=== PATIENT | male | born 1965 | race Caucasian/White ===

== ENCOUNTER 2018-01-31 08:00 | Day surgery (SDC) | payer BC ==
--- OUTSIDE RECORDS SUMMARY | 2018-01-31 08:06 | XMS REPORT | Clinical Summary ---
:1965 Author Organization [facility] Address [address] [place] [address] Phone Care Team Providers Name Role Phone Unavailable Primary Care Provider Unavailable Allergies No Known Allergies Current Medications Prescription Sig. Disp. Refills Start Date End Date Status metFORMIN Take 1,000 mg Active (GLUCOPHAGE) 1000 by mouth 2 MG tablet (two) times daily with breakfast and dinner. SITagliptin Take 100 mg by Active (JANUVIA) 100 MG mouth daily. tablet lisinopril Take 40 mg by 07/05/2017 Discontinued (PRINIVIL,ZESTRIL) mouth daily. 40 MG tablet ibuprofen Take 1 tablet 28 tablet 0 07/05/2017 07/05/2017 Discontinued (ADVIL,MOTRIN) 200 (200 mg total) MG tablet by mouth 2 (two) times daily for 14 days. traMADol (ULTRAM) Take 1 tablet 30 tablet 0 07/05/2017 07/15/2017 50 mg tablet (50 mg total) by mouth every 6 (six) hours as needed for Pain for up to 10 days. Max Daily Amount: 200 mg aspirin 81 MG Take 1 tablet 30 tablet 0 07/06/2017 08/05/2017 chewable tablet (81 mg total) by mouth daily for 30 days. atorvastatin Take 1 tablet 30 tablet 0 07/05/2017 08/04/2017 (LIPITOR) 40 MG (40 mg total) tablet by mouth nightly for 30 days. metoprolol Take 1 tablet 60 tablet 0 07/05/2017 08/04/2017 (LOPRESSOR) 25 MG (25 mg total) tablet by mouth 2 (two) times daily for 30 days. magnesium oxide Take 1 tablet 30 tablet 0 07/05/2017 08/04/2017 (MAG-OX) 400 mg (400 mg total) tablet by mouth daily for 30 days. ibuprofen Take 1 tablet 14 tablet 0 07/05/2017 07/12/2017 (ADVIL,MOTRIN) 200 (200 mg total) MG tablet by mouth 2 (two) times daily for 7 days. Active Problems Problem Noted Date S/P coronary artery bypass graft x 4 07/05/2017 Essential hypertension 06/30/2017 Type 2 diabetes mellitus without complication (HCC) 06/30/2017 CAD (coronary artery disease) 06/29/2017 Encounters Date Type Specialty Care Team Description 06/30/2017 Procedure Pass 06/30/2017 Surgery Fabian Spencer MD BYPASS,AORTO CORONARY CARMEN/SVG 06/29/2017 - Hospital Encounter Cardiology Fabian Spencer MD S/P coronary artery 07/05/2017 bypass graft x 4 (Primary Dx);Coronary artery disease involving blackfeet coronary artery of blackfeet heart with unstable angina pectoris (HCC);Type 2 diabetes mellitus without complication, without long-term current use of insulin (HCC);Essential hypertension 06/29/2017 Anesthesia Event Wyatt Maldonado MD 06/29/2017 Orders Only Yandel Medina MD after 01/30/2017 Social History Tobacco Use Types Packs/Day Years Used Date Never Assessed Sex Assigned at Date Recorded Not on file Last Filed Vital Signs Vital Sign Reading Time Taken Blood Pressure 107/59 07/05/2017 3:00 PM PHLEBOTOMIST Pulse 77 07/05/2017 3:00 PM PHLEBOTOMIST Temperature 36.3 C (97.3 F) 07/05/2017 3:00 PM PHLEBOTOMIST Respiratory Rate 18 07/05/2017 3:00 PM PHLEBOTOMIST Oxygen Saturation 95% 07/05/2017 3:00 PM PHLEBOTOMIST Inhaled Oxygen Concentration - - Weight 101.9 kg (224 lb 11.2 oz) 07/05/2017 5:51 AM PHLEBOTOMIST Height 175.3 cm (5' 9") 06/29/2017 7:00 PM PHLEBOTOMIST Body Mass Index 33.18 07/05/2017 5:51 AM PHLEBOTOMIST Plan of Treatment Not on file Implants Implanted Type Area Proteomics Scientist Device Expiration Model / Identifier Date Serial / Lot Sternal Zipfix Ndl Strl [id number] - Sn/A Cardiovascular Sternum SYNTHES :SYNTHES 12/25/[id number] / Implanted: Qty: 1 on 06/30/2017 by Fabian Spencer MD [facility] N/A / [id number] Procedures Procedure Name Priority Date/Time Associated Diagnosis Comments ENDOSCOPIC HARVEST,VEIN 06/30/2017 7:30 AM CAOD PHLEBOTOMIST BYPASS,AORTO CORONARY 06/30/2017 7:30 AM CAOD CARMEN/SVG PHLEBOTOMIST after 01/30/2017 Results RHYTHM STRIP - SCAN (07/06/2017 1:41 PM)POC-Glucose meter (07/05/2017 12:20 PM) Only the most recent of24 resultswithin the time period is included. Component Value Ref Range POC-Glucose Meter 217 (H)Comment: TESTED AT [address] 70 - 110 mg/[place] [id number] Specimen Performing Laboratory Blood [address] [address] EKG 12 lead (07/05/2017 6:05 AM)Only the most recent of7 resultswithin the time period is included. Specimen Performing Laboratory GE MUSE Narrative Ventricular Rate 76 BPM Atrial Rate 76 BPM P-R Interval 162 ms QRS Duration 86 ms Q-T Interval 382 ms QTC Calculation(Bazett) 429 ms P Nordman 53 degrees R Nordman 51 degrees T Nordman 40 degrees Normal sinus rhythm Possible Anterolateral infarct , age undetermined Abnormal ECG When compared with ECG of 04-JUL-2017 04:33, No significant change was found Confirmed by MD SULY, IHAB ([id number]) on 07/05/2017 1:33:22 PM Procedure Note Interface, External Ris In - 07/05/2017 1:33 PM PHLEBOTOMIST Ventricular Rate 76 BPM Atrial Rate 76 BPM P-R Interval 162 ms QRS Duration 86 ms Q-T Interval 382 ms QTC Calculation(Bazett) 429 ms P Nordman 53 degrees R Nordman 51 degrees T Nordman 40 degrees Normal sinus rhythm Possible Anterolateral infarct , age undetermined Abnormal ECG When compared with ECG of 04-JUL-2017 04:33, No significant change was found Confirmed by MD SULY, IHAB ([id number]) on 07/05/2017 1:33:22 PM Magnesium (07/05/2017 5:54 AM)Only the most recent of6 resultswithin the time period is included. Component Value Ref Range Magnesium 1.7 1.6 - 2.6 mg/dL Specimen Performing Laboratory Blood - Arm, Left [address] [address] CBC with platelet count + automated diff (07/03/2017 3:33 AM)Only the most recent of4 resultswithin the time period is included. Component Value Ref Range WBC 7.3 3.5 - 10.5 K/L RBC 2.83 (L) 4.63 - 6.08 M/L Hemoglobin 9.3 (L) 13.7 - 17.5 GM/DL Hematocrit 27.3 (L) 40.1 - 51.0 % MCV 96.5 (H) 79.0 - 92.2 fL MCH 32.9 (H) 25.7 - 32.2 pg MCHC 34.1 32.3 - 36.5 GM/DL RDW 12.1 11.6 - 14.4 % Platelets 202 150 - 450 K/CU MM MPV 9.4 9.4 - 12.4 fL nRBC 0 0 - 0 /100 WBC % Neutros 60 % % Lymphs 24 % % Monos 11 % % Eos 3 % % Baso 1 % # Neutros 4.37 1.78 - 5.38 K/L # Lymphs 1.77 1.32 - 3.57 K/L # Monos 0.83 (H) 0.30 - 0.82 K/L # Eos 0.20 0.04 - 0.54 K/L # Baso 0.04 0.01 - 0.08 K/L Immature Granulocytes-Relative 1 0 - 1 % Specimen Performing Laboratory Blood - [facility], [address] [address] CBC with platelet count + automated diff (07/03/2017 3:33 AM)Only the most recent of4 resultswithin the time period is included. Specimen Performing Laboratory Blood Narrative The following orders were created for panel order CBC with platelet count + automated diff. Procedure Abnormality Status --------- ------ CBC with platelet count ...[[id number]]AbnormalFinal result Please view results for these tests on the individual orders. Basic metabolic panel (07/03/2017 3:33 AM)Only the most recent of4 resultswithin the time period is included. Component Value Ref Range Sodium 136 136 - 145 meq/L Potassium 3.8 3.5 - 5.1 meq/L Chloride 102 98 - 107 meq/L CO2 26 22 - 29 meq/L BUN 10 7 - 21 mg/dL Creatinine 0.82 0.57 - 1.25 mg/dL Glucose 128 (H) 70 - 105 mg/dL Calcium 8.9 8.4 - 10.2 mg/dL EGFR 98Comment: ESTIMATED GFR IS NOT ACCURATE mL/min/1.73 sq m CREATININE CLEARANCE IN PREDICTING GLOMERULAR FILTRATION RATE. ESTIMATED GFR IS NOT APPLICABLE FOR DIALYSIS PATIENTS. Specimen Performing Laboratory Blood - Arm, Left [address] [address] XR chest 1 view portable / bedside (07/02/2017 5:50 AM)Only the most recent of4 resultswithin the time period is included. Specimen Performing Laboratory GE RIS Narrative FINAL REPORT RAD, CHEST, 1 VIEW, NON DEPT INDICATION: pulmonary congestion COMPARISON: Prior day's exam FINDINGS: Portable frontal view of the chest. IMPRESSION: Support Lines: Right IJ sheath is present. The left thoracostomy tube has been removed. Lungs and pleura: Coarsened interstitial markings are noted bilaterally. There is multifocal subsegmental atelectasis. No visible residual left pneumothorax. Heart and mediastinum: Stable contours. Stable surgical changes. Additional findings: None. Signed: JR Klein Robert MD Report Verified Date/Time:07/02/2017 06:01:17 Reading Location: [facility] C0[facility] CT Body Reading Room Procedure Note Interface, External Ris In - 07/02/2017 6:03 AM PHLEBOTOMIST FINAL REPORT RAD, CHEST, 1 VIEW, NON DEPT INDICATION: pulmonary congestion COMPARISON: Prior day's exam FINDINGS: Portable frontal view of the chest. IMPRESSION: Support Lines: Right IJ sheath is present. The left thoracostomy tube has been removed. Lungs and pleura: Coarsened interstitial markings are noted bilaterally. There is multifocal subsegmental atelectasis. No visible residual left pneumothorax. Heart and mediastinum: Stable contours. Stable surgical changes. Additional findings: None. Signed: JR Klein Robert MD Report Verified Date/Time: 07/02/2017 06:01:17 Reading Location: [facility] C013Y CT Body Reading Room Hemoglobin A1c (07/02/2017 4:34 AM) Component Value Ref Range Hemoglobin A1C 7.0 (H) 4.3 - 6.1 % Specimen Performing Laboratory Blood - Arm, Right [address] [address] TRANSFUSION SERVICE REPORT - SCAN (07/01/2017 5:51 PM)Oxygen saturation, measured (07/01/2017 5:14 AM)Only the most recent of3 resultswithin the time period is included. Component Value Ref Range O2 Saturation (Measured) 66.9 % Specimen Performing Laboratory Blood [address] [address] Calcium, Ionized (07/01/2017 5:14 AM)Only the most recent of4 resultswithin the time period is included. Component Value Ref Range Calcium, Ion 1.15 1.12 - 1.27 mmol/L pH, Blood 7.34 Specimen Performing Laboratory Blood [address] [address] CBC (Hemogram only) (07/01/2017 4:34 AM)Only the most recent of2 resultswithin the time period is included. Component Value Ref Range WBC 9.3 3.5 - 10.5 K/L RBC 3.25 (L) 4.63 - 6.08 M/L Hemoglobin 10.7 (L) 13.7 - 17.5 GM/DL Hematocrit 31.3 (L) 40.1 - 51.0 % MCV 96.3 (H) 79.0 - 92.2 fL MCH 32.9 (H) 25.7 - 32.2 pg MCHC 34.2 32.3 - 36.5 GM/DL RDW 12.2 11.6 - 14.4 % Platelets 201 150 - 450 K/CU MM MPV 9.3 (L) 9.4 - 12.4 fL nRBC 0 0 - 0 /100 WBC Specimen Performing Laboratory Blood [address] [address] Phosphorus (07/01/2017 4:34 AM)Only the most recent of2 resultswithin the time period is included. Component Value Ref Range Phosphorus 3.7 2.3 - 4.7 mg/dL Specimen Performing Laboratory Blood [address] [address] Blood gas, arterial (06/30/2017 2:25 PM)Only the most recent of6 resultswithin the time period is included. Component Value Ref Range pH, Arterial 7.36 7.35 - 7.45 pCO2, Arterial 40 35 - 45 mmHg pO2, Arterial 112 (H) 80 - 90 mmHg O2 Sat, Arterial 98.1 (H) 96.0 - 97.0 % HCO3, Arterial 23 21 - 29 mmol/L Base Excess, Arterial -2.9 (L) -2.0 - 3.0 mmol/L Patient Temperature 36.3 C FIO2 60.0 % Specimen Performing Laboratory Blood, [address] [address] Potassium-Stat Lab (06/30/2017 10:56 AM)Only the most recent of5 resultswithin the time period is included. Component Value Ref Range Potassium 4.8 3.6 - 5.5 meq/L Specimen Performing Laboratory Blood, [address] [address] Sodium Na-Stat Lab (06/30/2017 10:56 AM)Only the most recent of5 resultswithin the time period is included. Component Value Ref Range Sodium 130 (L) 135 - 148 meq/L Specimen Performing Laboratory Blood, [address] [address] Glucose-Stat Lab (06/30/2017 10:56 AM)Only the most recent of5 resultswithin the time period is included. Component Value Ref Range Glucose 196 (H) 70 - 110 mg/dL Specimen Performing Laboratory Blood, [address] [address] HGB/HCT (H&H)-Stat Lab (06/30/2017 10:56 AM)Only the most recent of5 resultswithin the time period is included. Component Value Ref Range Hemoglobin 12.6 (L) 13.0 - 16.8 g/dL Hematocrit 37.0 (L) 40.0 - 50.0 % Specimen Performing Laboratory Blood, [address] [address] Lactic acid, arterial, whole blood (06/30/2017 10:56 AM) Component Value Ref Range Lactate, Art 0.9Comment: Specimen slightly hemolyzed 0.5 - 2.2 mmol/L Specimen Performing Laboratory Blood, Arterial [address] [address] Narrative Effective 10/30/2015: Units/Reference Range Change New: 0.5-2.2 mmol/LPrevious: 5-20 mg/dL aPTT (06/30/2017 10:55 AM)Only the most recent of2 resultswithin the time period is included. Component Value Ref Range PTT 28.1 22.5 - 36.0 seconds Specimen Performing Laboratory Blood [address] [address] Prothromin time/INR (06/30/2017 10:55 AM)Only the most recent of3 resultswithin the time period is included. Component Value Ref Range Protime 16.1 (H) 11.7 - 14.7 seconds INR 1.3 <=5.9 Specimen Performing Laboratory Blood [address] [address] Narrative RECOMMENDED COUMADIN/WARFARIN INR THERAPY RANGES STANDARD DOSE: 2.0 - 3.0 Includes: PROPHYLAXIS for venous thrombosis, systemic embolization; TREATMENT for venous thrombosis and/or pulmonary embolus. HIGH RISK: Target INR is 2.5-3.5 for patients with mechanical heart valves. Fibrinogen (06/30/2017 10:55 AM)Only the most recent of2 resultswithin the time period is included. Component Value Ref Range Fibrinogen 309 225 - 434 mg/dl Specimen Performing Laboratory Blood [address] [address] Potassium-STAT (06/30/2017 10:55 AM) Component Value Ref Range Potassium 5.0Comment: Specimen slightly hemolyzed 3.5 - 5.1 meq/L Specimen Performing Laboratory Blood [address] [address] Glucose-STAT (06/30/2017 10:55 AM) Component Value Ref Range Glucose 205 (H) 70 - 105 mg/dL Specimen Performing Laboratory Blood [address] [place] [address] POC ACTIVATED CLOTTING TIME (06/30/2017 9:48 AM)Only the most recent of4 resultswithin the time period is included. Component Value Ref Range Activated Clotting Time 109Comment: TESTED AT [address] [place] [address] Specimen Performing Laboratory Blood [address] [address] [facility]RL CRITICAL LABS (ABG,NA,K,H&H,GLUCOSE) (06/30/2017 9:44 AM)Only the most recent of4 resultswithin the time period is included. Specimen Performing Laboratory Blood, Arterial Narrative The following orders were created for panel order [facility] CRITICAL LABS (ABG,NA,K,H&H,GLUCOSE). Procedure Abnormality Status --------- ------ Blood gas, arterial[[id number]]AbnormalFinal result Sodium Na-Stat Lab[[id number]] AbnormalFinal result Potassium-Stat Lab[[id number]] NormalFinal result Glucose-Stat Lab[[id number]] AbnormalFinal result HGB/HCT (H&H)-Stat Lab[[id number]] Abnormal Final result Please view results for these tests on the individual orders. Platelet count (06/30/2017 9:44 AM) Component Value Ref Range Platelets 145 (L) 150 - 450 K/CU MM Specimen Performing Laboratory Blood [address] [address] Prepare RBC (06/30/2017 7:00 AM) Component Value Ref Range CROSSMATCH COMPATIBLE Unit ABO A Neg UNIT NUMBER [id number] Status READY Blood Bank Product RED BLOOD CELLS PRODUCT CODE E4208Y17 CROSSMATCH COMPATIBLE Unit ABO A Neg UNIT NUMBER [id number] Status READY Blood Bank Product RED BLOOD CELLS PRODUCT CODE [id number] CROSSMATCH COMPATIBLE Unit ABO A Neg UNIT NUMBER [id number] Status READY Blood Bank Product RED BLOOD CELLS PRODUCT CODE [id number] CROSSMATCH COMPATIBLE Unit ABO A Neg UNIT NUMBER [id number] Status READY Blood Bank Product RED BLOOD CELLS PRODUCT CODE [id number] Specimen Performing Laboratory [place] Platelet Aggregation: Function Screen (06/30/2017 1:39 AM) Component Value Ref Range Weak ADP 74 60 - 91 % Plt. Function Screen Interpretation 60-100% indicates normal platelet function Pathologist: Lina Davidson MD (electronic signature) Platelets 283 150 - 450 K/CU MM Specimen Performing Laboratory Blood - Arm, [address] [address] Narrative for patients on clopidogrel in past two weeks Type and screen, automated (06/30/2017 1:39 AM) Component Value Ref Range ABO/RH AUTOMATED (BEAKER) A NEGATIVE Ab Scrn NEGATIVE Specimen Performing Laboratory Blood - Arm, [address] [address] Comprehensive metabolic panel (06/30/2017 1:39 AM) Component Value Ref Range Protein, Total 7.5 6.0 - 8.3 gm/dL Albumin 4.2 3.5 - 5.0 g/dL Alkaline Phosphatase 64 40 - 150 U/L Total Bilirubin 0.5 0.2 - 1.2 mg/dL Sodium 134 (L) 136 - 145 meq/L Potassium 4.4 3.5 - 5.1 meq/L Chloride 97 (L) 98 - 107 meq/L CO2 26 22 - 29 meq/L BUN 15 7 - 21 mg/dL Creatinine 1.15 0.57 - 1.25 mg/dL Glucose 272 (H) 70 - 105 mg/dL Calcium 9.6 8.4 - 10.2 mg/dL AST 21 5 - 34 U/L ALT 34 6 - 55 U/L EGFR 66Comment: ESTIMATED GFR IS NOT ACCURATE mL/min/1.73 sq m CREATININE CLEARANCE IN PREDICTING GLOMERULAR FILTRATION RATE. ESTIMATED GFR IS NOT APPLICABLE FOR DIALYSIS PATIENTS. Specimen Performing Laboratory Blood - Arm, [address] [address] after 01/30/2017
--- OUTSIDE RECORDS SUMMARY | 2018-01-31 08:09 | XMS REPORT | Continuity of Care Document ---
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 Dosing Weight 106.818, kg, Priority: STAT, Start date: 10/05/16 1:55:00 CDT, Duration: 30 day, Stop date: 11/03/16 9:00:00 CDTNotes: (Same as: Prinivil, Zestril) Insulin regular 8 unit, 0.08 mL, Inactive [place] Route: SUB-Q, 2016 Medical Drug form: SOLN, Center TID-Before Meals, Dosing Weight 106.818, kg, PRN Blood Glucose Results, Start date: 10/05/16 1:52:00 CDT, Duration: 30 day, Stop date: 11/04/16 1:51:00 CDTNotes: (Same as: Humulin R) Roll in palms of hands gently; Do not shake vigorously. "single patient use only" (Restricted to patients requiring a dose > 60 units) WASTE: F/P - Black; E - [employer] Trash Bin Stable for 28 days at room temperature Expires in days from Da te Albuterol 0.83 2.49 mg, 3 mL, No Longer [place] MG/ML Inhalant Route: NEB, Drug Active 2016 Medical Solution form: SOLN, Q4H, Center Dosing Weight 106.818, kg, PRN Wheezing, Start date: 10/05/16 1:52:00 CDT, Duration: 30 day, Stop date: 11/04/16 1:51:00 CDTNotes: SEE RT DOCUMENTATION (Same as: Proventil) Iohexol 120 mL, Route: Inactive [place] IVP, Drug Form: 2016 Medical SOLN, Dosing Center Weight 106.818, kg, ONCALL, STAT, Start date: 10/05/16 0:07:00 CDT, Duration: 1 doses or times, Dose=2.2ml/kg, Max essh=[id number] -- "To be infused by Radiology Staff ONLY" Zofran 4 mg, Route: Inactive [facility] IVP, Drug form: 2017 Medical INJ, ONCE, Center Dosing Weight 106.818, kg, Priority: STAT, Start date: 10/04/16 22:52:00 CDT, Stop date: 10/04/16 22:52:00 CDT Morphine 4 mg, Route: Inactive [facility] IVP, ONCE, 2017 Medical Dosing Weight Center 106.818, kg, Priority: STAT, Start date: 10/04/16 22:52:00 CDT, Stop date: 10/04/16 22:52:00 CDT Saline Flush 10 mL, Route: No Longer [facility] 0.9% IVP, Drug Form: Active 2016 Medical INJ, Dosing Center Weight 106.818, kg, PRN, PRN Line Flush, Start date: 10/04/16 20:34:00 CDT, Duration: 30 day, Stop date: 11/03/16 20:33:00 CDTNotes: (Same as: BD Posiflush) Allergies, Adverse Reactions, Alerts Substance Category Reaction Severity Reaction Status Date Comments Source type Reported NKDA Assertion Drug Active [facility] Immunizations Immunization Date Given Site Status Last Updated Comments Source pneumococcal 11/02/2016 Not Given [facility] 23-valent vaccine [facility] pneumococcal 10/05/2016 Not Given [facility] Results Order Name Results Value Reference Date Interpretation Comments Source Range ELECTROLYTE AGAP 13.3 meq/L 10.0 - 11/07 [facility] .0 [facility] ELECTROLYTE eGFR 98 11/07 Result Comment: The eGFR is calculated using the CKD-EPI formula. In most young, healthy individuals the eGFR will be >90 mL/ min/1.73m2. The eGFR declines with age. An eGFR of 60-89 may be normal in [facility] mL/min/1.7 /2016 some populations, particularly the elderly, for whom the CKD-EPI formula has not been extensively validated. Use of the eGFR is not recommended in the following populations: [address] Individuals with unstable creatinine concentrations, including patients and those with serious co-morbid conditions. Patients with extremes in muscle mass or diet. The data above are obtained from the National Kidney Disease Education Program (NKDEP) which additionally recommends that when the eGFR is used in patients with extremes of body mass index for purposes of drug dosing, the eGFR should be multiplied by the estimated BMI. ELECTROLYTE Glucose Lvl 132 mg/dL 70 - 99 11/07 [facility] ELECTROLYTE BUN 8 mg/dL 7 - 22 11/07 [facility] ELECTROLYTE Sodium Lvl 137 meq/L 135 - 145 11/07 [facility] ELECTROLYTE Potassium Lvl 4.3 meq/L 3.5 - 5.1 11/07 [facility]2016 [facility] ELECTROLYTE Creatinine 0.88 mg/dL 0.50 - 11/07 [facility] Lvl 1.40 [facility] ELECTROLYTE CO2 28 meq/L 24 - 32 11/07 [facility] ELECTROLYTE Calcium Lvl 9.6 mg/dL 8.5 - 10.5 11/07 [facility] ELECTROLYTE Chloride Lvl 100 meq/L 95 - 109 11/07 [facility] HEMATOLOGY WBC 6.5 K/CMM 3.7 - 10.4 11/07 [facility] HEMATOLOGY Platelet 493 K/CMM 133 - 450 11/07 [facility] HEMATOLOGY MPV 6.6 fL 7.4 - 10.4 11/07 [facility] HEMATOLOGY RDW 13.4 % 11.5 - 11/07 14.5 [facility] HEMATOLOGY MCHC 34.0 g/dL 32.0 - 11/07 36.0 [facility] HEMATOLOGY MCH 31.0 pg 27.0 - 11/07 31.0 [facility] HEMATOLOGY RBC 3.42 M/CMM 4.70 - 11/07 6.10 [facility] HEMATOLOGY MCV 91.2 fL 80.0 - 11/07 94.0 [facility] HEMATOLOGY Hct 31.2 % 42.0 - 11/07 54.0 [facility] HEMATOLOGY Hgb 10.6 g/dL 14.0 - 11/07 18.0 [facility] HEMATOLOGY Segs 47.2 % 45.0 - 11/07 [place] 75.0 [facility] HEMATOLOGY Eosinophils # 0.5 K/CMM 0.0 - 0.5 11/[address] HEMATOLOGY Monocytes # 0.7 K/CMM 0.0 - 0.8 11/[address] HEMATOLOGY Lymphocytes # 2.2 K/CMM 1.0 - 5.5 11/[address] HEMATOLOGY Segs-Bands # 3.1 K/CMM 1.5 - 8.1 11/[address] HEMATOLOGY Lymphocytes 33.2 % 20.0 - 11/07 [place] 40.0 [facility] HEMATOLOGY Monocytes 10.5 % 2.0 - 12.0 11/[address] HEMATOLOGY Basophils # 0.1 K/CMM 0.0 - 0.2 11/[address] HEMATOLOGY Basophils 1.2 % 0.0 - 1.0 11/[address] HEMATOLOGY Eosinophils 7.9 % 0.0 - 4.0 11/[address] Chest 1view Chest 1view EXAM: XR CHEST 1 VIEW 11/07 [facility] [address] [place] [address] DATE: 11/07/2016 3:00 AM CDT Read by: hCava Mejia MD Dictated Date/time: 11/07/16 02:49 Electronically Signed by: Chava Mejia MD 11/07/16 02:50 FINAL REPORT INDICATION: Abnormal chest sounds COMPARISON: Previous Day FINDINGS: Lines and Tubes: None Heart and Mediastinum: Unremarkable. Lungs and Pleura: Patchy opacities right mid and lower lung. Other: Postsurgical changes right chest wall/right ribs. IMPRESSION: 1. Stable. Chest 1view Chest 1view EXAM: XR CHEST 1 VIEW 11/[address] DATE: 11/06/2016 4:30 PM CDT Read by: Ronal Kapoor MD Dictated Date/time: 11/06/16 17:08 Electronically Signed by: Ronal Kapoor MD 11/06/16 17:10 FINAL REPORT INDICATION: Abnormal chest sounds COMPARISON: 11/06/2016 at 0 416 TECHNIQUE: AP chest FINDINGS: Lines and tubes: Right-sided chest tube has been removed.. Lungs and pleura: Stable mild consolidation or pulmonary contusion are seen over the right midlung. There is stable mild elevation of the right hemidiaphragm. A small right pleural effusion persists. No discrete pneumothorax is seen. Heart and mediastinum: The heart size is normal for technique. The mediastinal contours are normal. Bones: No acute bony abnormality is identified. Stable right costal internal fixation plates are seen. Stable displaced right-sided fourth and fifth rib fractures are present as well. Surgical caridad are again seen over the right hemithorax. IMPRESSION: Interim removal of right-sided chest tube. No discrete pneumothorax is detected. No other significant changes. CHEM PANEL Calcium Lvl 9.7 mg/dL 8.5 - 10.5 11/[address] CHEM PANEL AGAP 16.5 meq/L 10.0 - 11/06 [facility] 20.0 [facility] CHEM PANEL eGFR 103 11/06 Result Comment: The eGFR is calculated using the CKD-EPI formula. In most young, healthy individuals the eGFR will be >90 mL/ min/1.73m2. The eGFR declines with age. An eGFR of 60-89 may be normal in [facility] mL/min/1.7 some populations, particularly the elderly, for whom the CKD-EPI formula has not been extensively validated. Use of the eGFR is not recommended in the following populations: [address] Individuals with unstable creatinine concentrations, including patients and those with serious co-morbid conditions. Patients with extremes in muscle mass or diet. The data above are obtained from the National Kidney Disease Education Program (NKDEP) which additionally recommends that when the eGFR is used in patients with extremes of body mass index for purposes of drug dosing, the eGFR should be multiplied by the estimated BMI. CHEM PANEL BUN 6 mg/dL 7 - 22 11/06 [facility] [address] [place] [address] CHEM PANEL Glucose Lvl 143 mg/dL 70 - 99 11/[address] CHEM PANEL CO2 24 meq/L 24 - 32 11/[address] CHEM PANEL Chloride Lvl 98 meq/L 95 - 109 11/[address] CHEM PANEL Potassium Lvl 4.5 meq/L 3.5 - 5.1 11/[address] CHEM PANEL Sodium Lvl 134 meq/L 135 - 145 11/[address] CHEM PANEL Creatinine 0.77 mg/dL 0.50 - 11/06 [facility] Lvl 1.40 /2016 [facility] HEMATOLOGY MCH 31.8 pg 27.0 - 11/06 31.0 [facility] HEMATOLOGY MCV 90.7 fL 80.0 - 11/06 94.0 [facility] HEMATOLOGY Platelet 437 K/CMM 133 - 450 11/06 [facility] HEMATOLOGY RDW 13.7 % 11.5 - 11/06 14.5 /2016 [facility] HEMATOLOGY MCHC 35.1 g/dL 32.0 - 11/06 36.0 [facility] HEMATOLOGY MPV 6.9 fL 7.4 - 10.4 11/06 [facility] HEMATOLOGY Hgb 10.4 g/dL 14.0 - 11/06 18.0 [facility] HEMATOLOGY Hct 29.7 % 42.0 - 11/06 54.0 [facility] HEMATOLOGY WBC 5.7 K/CMM 3.7 - 10.4 11/06 [facility] HEMATOLOGY RBC 3.27 M/CMM 4.70 - 11/06 [place] 6.10 [facility] HEMATOLOGY Basophils # 0.1 K/CMM 0.0 - 0.2 11/06 [facility] HEMATOLOGY Monocytes # 0.6 K/CMM 0.0 - 0.8 11/06 [facility] HEMATOLOGY Segs 47.1 % 45.0 - 11/06 75.0 [facility] HEMATOLOGY Lymphocytes 32.7 % 20.0 - 11/06 40.0 2017 [facility] HEMATOLOGY Monocytes 9.9 % 2.0 - 12.0 11/06 [facility] HEMATOLOGY Eosinophils # 0.5 K/CMM 0.0 - 0.5 11/06 [facility] HEMATOLOGY Lymphocytes # 1.9 K/CMM 1.0 - 5.5 11/06 [facility] HEMATOLOGY Eosinophils 9.1 % 0.0 - 4.0 11/06 [facility] HEMATOLOGY Segs-Bands # 2.7 K/CMM 1.5 - 8.1 11/06 [facility] HEMATOLOGY Basophils 1.2 % 0.0 - 1.0 11/06 [facility] Chest 1view Chest 1view EXAM: XR CHEST 1 VIEW 11/06 - [facility] DATE: 11/06/2016 3:00 AM CDT Read by: Stefano Gutiérrez MD Dictated Date/time: 11/06/16 10:22 Electronically Signed by: Stefano Gutiérrez MD 11/06/16 10:23 FINAL REPORT INDICATION: Abnormal chest sounds TECHNIQUE: AP chest IMPRESSION: A right-sided chest tube is stable in position. There is scattered atelectasis or consolidation in the right lung, not significant changed. Trace right pleural fluid. A tiny right residual pneumothorax is difficult to exclude. The left lung is clear. Chest 1view Chest 1view EXAM: XR CHEST 1 VIEW 11/05 - [facility] DATE: 11/05/2016 7:00 PM CDT Read by: Drew Arroyo MD Dictated Date/time: 11/05/16 20:22 Electronically Signed by: Drew Arroyo MD 11/05/16 20:25 FINAL REPORT INDICATION: Abnormal chest sounds COMPARISON: Earlier today at 0535 hours. TECHNIQUE: AP chest FINDINGS: The superior and medial of 2 right-sided chest tubes has been removed. The lower and more lateral right chest tube remains. There is no change in appearance of skin clips and rib fixation plates. The heart size is normal. There is been minimal interval improvement with less density in the right lung. Some of the fluid is adjacent to the minor fissure and may be within the pleural space whereas another more superior densi ty is likely subsegmental airspace disease. The right CP angle is blunted. There is no right-sided pneumothorax. The left lung is clear. IMPRESSION: 1. Diminished density in the right midlung likely representing improving airspace disease or diminished pleural fluid. 2. Improvement in airspace disease in the upper lung laterally likely representing diminished atelectasis. CHEM PANEL eGFR 100 11/05 Result Comment: The eGFR is calculated using the CKD-EPI formula. In most young, healthy individuals the eGFR will be >90 mL/ min/1.73m2. The eGFR declines with age. An eGFR of 60-89 may be normal in [facility] mL/min/1. some populations, particularly the elderly, for whom the CKD-EPI formula has not been extensively validated. Use of the eGFR is not recommended in the following populations: [place] [address] [facility] Individuals with unstable creatinine concentrations, including patients and those with serious co-morbid conditions. Patients with extremes in muscle mass or diet. The data above are obtained from the National Kidney Disease Education Program (NKDEP) which additionally recommends that when the eGFR is used in patients with extremes of body mass index for purposes of drug dosing, the eGFR should be multiplied by the estimated BMI. CHEM PANEL Calcium Lvl 8.9 mg/dL 8.5 - 10.5 11/05 [facility] CHEM PANEL BUN 7 mg/dL 7 - 22 11/05 [facility] CHEM PANEL Glucose Lvl 237 mg/dL 70 - 99 11/05 [facility] CHEM PANEL Potassium Lvl 4.1 meq/L 3.5 - 5.1 11/05 [facility] CHEM PANEL Sodium Lvl 134 meq/L 135 - 145 11/05 [facility] CHEM PANEL Creatinine 0.83 mg/dL 0.50 - 11/05 [facility] Lvl 1.40 [facility] CHEM PANEL CO2 22 meq/L 24 - 32 11/05 [facility] CHEM PANEL Chloride Lvl 101 meq/L 95 - 109 11/05 [facility] CHEM PANEL AGAP 15.1 meq/L 10.0 - 11/05 [place] 20.0 [facility] HEMATOLOGY MPV 6.6 fL 7.4 - 10.4 11/05 [facility] HEMATOLOGY RDW 13.3 % 11.5 - 11/05 14.5 [facility] HEMATOLOGY Platelet 440 K/CMM 133 - 450 11/05 [facility] HEMATOLOGY MCHC 33.9 g/dL 32.0 - 11/05 [place] 36.0 [facility] HEMATOLOGY MCV 93.2 fL 80.0 - 11/05 [place] 94.0 [facility] HEMATOLOGY MCH 31.6 pg 27.0 - 11/05 [place] 31.0 [facility] HEMATOLOGY WBC 6.7 K/CMM 3.7 - 10.4 11/05 [facility] HEMATOLOGY RBC 3.21 M/CMM 4.70 - 11/05 [place] 6.10 [facility] HEMATOLOGY Hgb 10.1 g/dL 14.0 - 11/05 18.0 [facility] HEMATOLOGY Hct 29.9 % 42.0 - 11/05 [facility] 54.0 /2016 [facility] HEMATOLOGY Segs-Bands # 3.5 K/CMM 1.5 - 8.1 11/[address] HEMATOLOGY Lymphocytes # 1.8 K/CMM 1.0 - 5.5 11/[address] HEMATOLOGY Basophils # 0.1 K/CMM 0.0 - 0.2 11/[address] HEMATOLOGY Monocytes # 0.7 K/CMM 0.0 - 0.8 11/[address] HEMATOLOGY Eosinophils # 0.6 K/CMM 0.0 - 0.5 11/[address] HEMATOLOGY Monocytes 11.0 % 2.0 - 12.0 11/[address] HEMATOLOGY Eosinophils 8.3 % 0.0 - 4.0 11/[address] HEMATOLOGY Segs 52.6 % 45.0 - 11/05 [facility] 75.0 [facility] HEMATOLOGY Lymphocytes 27.0 % 20.0 - 11/05 [facility] 40.0 [facility] HEMATOLOGY Basophils 1.1 % 0.0 - 1.0 11/[address] Chest 1view Chest 1view EXAM: XR CHEST 1 VIEW 11/05 [facility] DATE: 11/05/2016 3:00 AM CDT Read by: Stefano Gutiérrez MD Dictated Date/time: 11/05/16 10:33 Electronically Signed by: Stefano Gutiérrez MD 11/05/16 10:34 FINAL REPORT INDICATION: Abnormal chest sounds TECHNIQUE: AP chest IMPRESSION: Right-sided post thoracotomy, with chest tubes in place, previous chest wall fixation. Mild scattered atelectasis or consolidation in the periphery of the right lung. Tiny right hydropneumothorax unchanged. Chest 1view Chest 1view EXAM: XR CHEST 1 VIEW 11/04 [facility] This report was dictated by a Type Disk Quality Control Supervisor/Fellow. I have personally reviewed the images as Center well as the Resident's interpretation and agree with the findings. DATE: 11/04/2016 0727 hours Read by: Luzma Bailey MD Resident: Luzma Bailye MD Dictated Date/time: 11/04/16 09:46 Electronically Signed by: Josephine Almendarez MD 11/04/16 11:13 FINAL REPORT INDICATION: Abnormal chest sounds COMPARISON: History radiograph 11/03/2016 TECHNIQUE: AP chest FINDINGS: Lines and tubes: 2 right-sided chest tubes are unchanged in position. Lungs and pleura: The lung volumes are low. Small pleural fluid is noted on the right and tracks into the minor fissure. There is abundant right mid and lower lung areas of subsegmental atelectasis, wor se on the comparison exam. Minimal left lung base subsegmental atelectasis is noted. Aeration at the left lung is improved. Heart and mediastinum: The heart size is normal for technique. The mediastinal contours are normal. Bones: Postsurgical changes of plate and screw fixation of multiple the posterior 7th through 9th ribs are again noted. Fractures of multiple posterior upper ribs are also noted. IMPRESSION: 1. Worsening right basilar compressive atelectasis. Superimposed infection cannot be excluded. Small right pleural fluid remains present. 2. Improved aeration of the left lung. 3. Tiny right hydropneumothorax. HEMATOLOGY Toxic Gran slight 11/03 [facility] /2016 [facility] Chest 1view Chest 1view EXAM: XR CHEST 1 VIEW 11/03 [facility] DATE: 11/03/2016 3:00 AM CDT Read by: Chava Mejia MD Dictated Date/time: 11/03/16 10:35 Electronically Signed by: Chava Mejia MD 11/03/16 10:36 FINAL REPORT INDICATION: Abnormal chest sounds COMPARISON: Previous Day FINDINGS: Lines and Tubes: 2 right thoracostomy tube stable. Heart and Mediastinum: Unremarkable. Lungs and Pleura: Patchy airspace opacities lung bases. Right thoracotomy changes and postsurgical changes inferior right ribs are stable. Minimal right chest wall subcutaneous emphysema. While evaluati on is limited given semi-upright positioning, no distinct pneumothorax is identified. Other: None. IMPRESSION: 1. Stable. BLOOD BANK Antibody Scrn Negative 11/02 [facility] RESULTS /2016 [facility] (11/02/16 5:29 PM) [place] BLOOD BANK ABO/Rh A NEG 11/02 [facility] Chest 1view Chest 1view EXAM: XR CHEST 1 VIEW 11/02 [facility] DX [facility] DATE: 11/02/2016 at 2028 hours Read by: Lela Zurita MD Dictated Date/time: 11/02/16 20:45 Electronically Signed by: Lela Zurita MD 11/02/16 20:48 FINAL REPORT INDICATION: Abnormal chest sounds COMPARISON: Exam earlier the same day TECHNIQUE: AP chest FINDINGS: Lines and tubes: 2 right-sided chest tubes have been placed. Plates and screws have been placed in the ribs. Lungs and pleura: Is poorly seen right pleural effusion is significantly improved. Scattered right lower lung opacities are present, many which are linear and likely related to atelectasis. Left lung is clear. No left pleural effusion is present. Heart and mediastinum: The heart size is normal for technique. The mediastinal contours are normal. Bones: No acute bony abnormality is identified. IMPRESSION: 1. Interval placement of 2 left-sided chest tubes and multiple rib plates. 2. Improved right pleural effusion. 3. Scattered linear opacities likely relate to atelectasis. CHEM PANEL Total Protein 7.9 g/dL 6.4 - 8.4 / [address] CHEM PANEL Bili Total 0.3 mg/dL 0.2 - 1.3 / [address] CHEM PANEL Alk Phos 99 unit/L 39 - 136 / [address] CHEM PANEL AST 9 unit/L 0 - 37 / [address] CHEM PANEL ALT 23 unit/L 0 - 65 /[address] [place] [address] CHEM PANEL Albumin Lvl 3.4 g/dL 3.5 - 5.0 / [address] CHEM PANEL A/G Ratio 0.8 0.7 - 1.6 / [address] CHEM PANEL Globulin 4.5 g/dL 2.7 - 4.2 / [address] CHEM PANEL B/C Ratio 12 6 - 25 /[address] [place] [address] Chest 1view Chest 1view EXAM: XR CHEST 1 VIEW 11/02 - [facility] DX DX /2016 - [facility] This report was dictated by a Type Disk Quality Control Supervisor/Fellow. I have personally reviewed the images as Center well as the Resident's interpretation and agree with the findings. DATE: 11/02/2016 at 0536 hours Read by: Rain Jenkins MD Resident: Rain Jenkins MD Dictated Date/time: 11/02/16 06:23 Electronically Signed by: Fabian Becerril MD 11/02/16 07:54 FINAL REPORT INDICATION: Pain Post Trauma COMPARISON: CT chest 11/01/2016 TECHNIQUE: AP semierect chest with 2 images FINDINGS: Loculated right pleural effusion with overlying segmental atelectasis noted in the right lower lobe. Superimposed infection cannot be excluded. The left lung is unremarkable. The cardiomediast inal silhouette is stable. Multiple displaced posterior right rib fractures have been described on prior chest CT and are again demonstrated on this radiograph. There is widening of the right acromiocla vicular and coracoclavicular distances suggestive of injury to the AC and CC ligaments. IMPRESSION: 1. Loculated right pleural effusion with overlying segmental atelectasis, unchanged. Superimposed infection cannot be excluded. 2. Widening of the right acromioclavicular and coracoclavicular distances suggestive of ligamentous injury, grade 3 AC separation. 3. Multiple displaced posterior right rib fractures have been described on prior chest CT. [place] SECTION: ER CHEM PANEL Lactic Acid 1.1 mMol/L 0.5 - 2.2 11/01 [facility] HEMATOLOGY Estimated % 4.6 % 0.0 - 7.5 11/01 Result [facility] Comment: Medical "Significant Center Findings called to DINO CHRISTOPHERat 11/01/2016 18:03 ___by BV ___.Read Back OK." HEMATOLOGY [place] 0.5 min 11/01 [facility] HEMATOLOGY ACT (TEG) 105 s 86 - 118 11/01 [facility] [facility]2016 [facility] HEMATOLOGY R-time Rapid 0.6 min 0.4 - 0.7 11/01 [facility]2016 [facility] HEMATOLOGY Max Amplitude 74 mm 52 - 71 11/01 [facility]2016 [facility] HEMATOLOGY G-value Rapid 14.5 K 5.0 - 11.6 11/01 [facility] d/sc [facility] HEMATOLOGY Angle Rapid 79 degrees 64 - 80 11/[address] HEMATOLOGY K-time Rapid 0.9 min 0.6 - 2.3 11/[address] CHEM PANEL Magnesium Lvl 2.5 mg/dL 1.8 - 2.4 10/06 [facility] CHEM PANEL Phosphorus 4.0 mg/dL 2.5 - 4.5 10/06 [facility]2016 [facility] CHEM PANEL eGFR 58 10/06 Result Comment: The eGFR is calculated using the CKD-EPI formula. In most young, healthy individuals the eGFR will be >90 mL/ min/1.73m2. The eGFR declines with age. An eGFR of 60-89 may be normal in [facility] mL/min/1.7 some populations, particularly the elderly, for whom the CKD-EPI formula has not been extensively validated. Use of the eGFR is not recommended in the following populations: [address] Individuals with unstable creatinine concentrations, including patients and those with serious co-morbid conditions. Patients with extremes in muscle mass or diet. The data above are obtained from the National Kidney Disease Education Program (NKDEP) which additionally recommends that when the eGFR is used in patients with extremes of body mass index for purposes of drug dosing, the eGFR should be multiplied by the estimated BMI. CHEM PANEL Potassium Lvl 4.0 meq/L 3.5 - 5.1 10/06 [facility] CHEM PANEL Chloride Lvl 92 meq/L 95 - 109 10/[address] [place] [address] CHEM PANEL CO2 24 meq/L 24 - 32 10/[address] CHEM PANEL Calcium Lvl 8.7 mg/dL 8.5 - 10.5 10/06 [facility] CHEM PANEL AGAP 14.0 meq/L 10.0 - 10/06 20.0 [facility] CHEM PANEL Glucose Lvl 204 mg/dL 70 - 99 10/06 [facility] CHEM PANEL BUN 16 mg/dL 7 - 22 10/[address] [place] [address] CHEM PANEL Sodium Lvl 126 meq/L 135 - 145 10/[address] CHEM PANEL Creatinine 1.37 mg/dL 0.50 - 10/06 [facility] Lvl 1.40 [facility] HEMATOLOGY RDW 13.0 % 11.5 - 10/06 14. [facility] HEMATOLOGY Platelet 254 K/CMM 133 - 450 10/06 2016 [facility] HEMATOLOGY MCHC 35.2 g/dL 32.0 - 10/06 36.0 [facility] HEMATOLOGY MPV 7.3 fL 7.4 - 10.4 10/06 [facility] HEMATOLOGY Hct 37.3 % 42.0 - 10/06 54.0 [facility] HEMATOLOGY MCV 95.2 fL 80.0 - 10/06 94.0 [facility] HEMATOLOGY MCH 33.5 pg 27.0 - 10/06 31.0 [facility] HEMATOLOGY Hgb 13.1 g/dL 14.0 - 10/06 18.0 [facility] HEMATOLOGY WBC 7.0 K/CMM 3.7 - 10.4 10/[address] [place] [address] HEMATOLOGY RBC 3.92 M/CMM 4.70 - 10/06 [place] 6.10 [facility] HEMATOLOGY Lymphocytes # 1.4 K/CMM 1.0 - 5.5 10/[address] HEMATOLOGY Monocytes # 0.7 K/CMM 0.0 - 0.8 10/[address] HEMATOLOGY Eosinophils # 0.2 K/CMM 0.0 - 0.5 10/[address] HEMATOLOGY Monocytes 10.1 % 2.0 - 12.0 10/[address] [place] [address] HEMATOLOGY Eosinophils 3.0 % 0.0 - 4.0 10/[address] [place] [address] HEMATOLOGY Segs 65.8 % 45.0 - 10/06 75.0 [facility] HEMATOLOGY Lymphocytes 20.5 % 20.0 - 10/06 40.0 [facility] HEMATOLOGY Basophils 0.6 % 0.0 - 1.0 10/[address] HEMATOLOGY Segs-Bands # 4.6 K/CMM 1.5 - 8.1 10/[address] SPECIAL Hgb A1C 9.0 % <=5.6 % 10/06 [facility] CHEMISTRY [facility] Chest 1view Chest 1view EXAM: XR CHEST 1 VIEW 10/06 - [facility] DX DX - [facility] DATE: 10/06/2016 Read by: Sheila Nolasco MD Dictated Date/time: 10/06/16 09:16 Electronically Signed by: Sheila Nolasco MD 10/06/16 09:16 FINAL REPORT INDICATION: Abnormal chest sounds . Comparison is made with yesterday FINDINGS: Lung volumes are low. This produces spurious widening of the transverse diameter of the heart and mediastinum and crowding of the basal lung markings. This produces platelike atelectasis at lisa th lung bases. Underlying consolidation is not excluded.. The upper lungs are clear. IMPRESSION: No significant interval change when compared to prior radiograph. CHEM PANEL Phosphorus 3.0 mg/dL 2.5 - 4.5 10/[address] CHEM PANEL Magnesium Lvl 1.7 mg/dL 1.8 - 2.4 10/[address] ELECTROLYTE AGAP 14.4 meq/L 10.0 - 10/05 [facility] 20.0 [facility] ELECTROLYTE eGFR 101 10/05 Result Comment: The eGFR is calculated using the CKD-EPI formula. In most young, healthy individuals the eGFR will be > 90 mL/min/1.73m2. The eGFR declines with age. An eGFR of 60-89 may be normal in [facility] mL/min/1.7 some populations, particularly the elderly, for whom the CKD-EPI formula has not been extensively validated. Use of the eGFR is not recommended in the following populations: [address] Individuals with unstable creatinine concentrations, including patients and those with serious co-morbid conditions. Patients with extremes in muscle mass or diet. The data above are obtained from the National Kidney Disease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
--- OUTSIDE RECORDS SUMMARY | 2018-01-31 08:10 | XMS REPORT | Summary of Care ---
:1965 Author Organization [facility] Address [address] [place] [id number]- Encounter [facility] Encntr_nathalia(FIN) [id number] Date(s): 11/01/16 - 11/07/[address] Professional Services provided by [facility] [place] [address]- Discharge Disposition: Home or Self Care Attending Physician: Onel Ware MD Admitting Physician: Onel Ware MD Referring Physician: Femi Marquez MD Vital Signs Most recent to oldest 1 2 3 [Reference Range]: Height 175.26 cm (11/01/16 8:51 PM) Temperature Oral [96.4-99.1 98.7 DegF 97.5 DegF 97.9 DegF DegF] (11/07/16 9:07 AM) (11/07/16 3:15 AM) (11/06/16 11:15 PM) Blood Pressure [90-140/60-90 129/80 mmHg 110/73 mmHg 142/77 mmHg mmHg] (11/07/16 9:07 AM) (11/07/16 3:15 AM) *HI* (11/06/16 11:15 PM) Respiratory Rate [14-20 BRMIN] 18 BRMIN 18 BRMIN 18 BRMIN (11/07/16 9:07 AM) (11/07/16 3:15 AM) (11/06/16 11:15 PM) Peripheral Pulse Rate [60-100 91 bpm 86 bpm 84 bpm bpm] (11/07/16 9:07 AM) (11/07/16 3:15 AM) (11/06/16 11:15 PM) Weight 104.545 kg 104.545 kg (11/01/16 8:51 PM) (11/01/16 2:21 PM) Body Mass Index 34.04 m2 (11/01/16 8:51 PM) Problem List Condition Effective Dates Status Health Status Informant DM (diabetes mellitus)(Confirmed) Active Hypertension(Confirmed) Active Allergies, Adverse Reactions, Alerts Substance Reaction Severity Status NKDA Active Medications acetaminophen 325 mg, 1 tab, Route: PO, Drug form: TAB, Q4H, Dosing Weight 104.545, kg, PRN Pain Score 1-3, Start date: 11/01/16 17:19:00 CDT, Duration: 30 day, Stop date: 12/01/16 17:18:00 CDT Notes: Do not exceed 4 gm/day. (Same as: Tylenol) Start Date: 11/01/16 Stop Date: 11/02/16 Status: Discontinuedacetaminophen (ANES) Route: IV, Drug form: INJ, ONCE, Stop date: 11/02/16 16:46:00 CDT Start Date: 11/02/16 Stop Date: 11/02/16 Status: Completedacetaminophen 500 mg oral tablet 1,000 mg=2 tab, PO, Q6H, X 14 day, # 112 tab, 0 Refill(s) Start Date: 11/07/16 Stop Date: 11/21/16 Status: OrderedANES ePHEDrine 5 mg, 0.1 mL, Route: IVP, Drug form: INJ, Q5Min, Dosing Weight 104.545, kg, PRN Low Blood Pressure, Start date: 11/02/16 16:38:00 CDT, Duration: 30 day, Stop date: 12/02/16 16:37:00 CDT Notes: (Same as: ePHEDrine Sulfate) Start Date: 11/02/16 Stop Date: 11/02/16 Status: DiscontinuedANES fentaNYL 25 microgram, 0.5 mL, Route: IVP, Drug form: INJ, Q5Min, Dosing Weight 104.545, kg, PRN Pain Score 4-6, Priority: Routine, Start date: 11/02/16 16:38:00 CDT, Duration: 4 doses or times, Stop date: Limited # of times Notes: (Same as: Sublimaze) Preservative free. Start Date: 11/02/16 Stop Date: 11/02/16 Status: DiscontinuedANES flumazenil 0.2 mg, 2 mL, Route: IVP, Drug form: INJ, PRN, Dosing Weight 104.545, kg, PRN Benzodiazepine Reversal, Initial dose, Start date: 11/02/16 16:38:00 CDT, Duration: 30 day, Stop date: 12/02/16 16:37:00 CDT Notes: (Same as: Romazicon) Start Date: 11/02/16 Stop Date: 11/02/16 Status: DiscontinuedANES hydrALAZINE 10 mg, 0.5 mL, Route: IVP, Drug form: INJ, Q20Min, Dosing Weight 104.545, kg, PRN Elevated BP, Startdate: 11/02/16 16:38:00 CDT, Duration: 2 doses or times, Stop date: Limited # of times Notes: (Same as: Apresoline)Push over 5 minutes Start Date: 11/02/16 Stop Date: 11/02/16 Status: DiscontinuedANES HYDROmorphone 0.5 mg, 0.25 mL, Route: IVP, Drug form: INJ, Q5Min, Dosing Weight 104.545, kg, PRN Pain Score 7-10, Start date: 11/02/16 16:38:00 CDT, Duration: 4 doses or times, Stop date: Limited # of times Notes: Same as: Dilaudid Start Date: 11/02/16 Stop Date: 11/02/16 Status: DiscontinuedANES labetalol 10 mg, 2 mL, Route: IVP, Drug form: INJ, Q5Min, Dosing Weight 104.545, kg, PRN Elevated BP, Start date: 11/02/16 16:38:00 CDT, Duration: 5 doses or times, Stop date: Limited # of times Start Date: 11/02/16 Stop Date: 11/02/16 Status: DiscontinuedANES naloxone 0.4 mg, 1 mL, Route: IVP, Drug form: INJ, Q2MIN, Dosing Weight 104.545, kg, PRN Narcotic Reversal, Start date: 11/02/16 16:38:00 CDT, Duration: 8 doses or times , Stop date: Limited # of times Notes: Same as Narcan Start Date: 11/02/16 Stop Date: 11/02/16 Status: DiscontinuedANES ondansetron 4 mg, 2 mL, Route: IVP, Drug form: INJ, ONCE, Dosing Weight 104.545, kg, PRN Nausea & Vomiting, Start date: 11/02/16 16:38:00 CDT Notes: (Same as: Macho) MEDICATION WASTE Product Size: 4 mgProduct Wasted: ___ mg Start Date: 11/02/16 Stop Date: 11/02/16 Status: Discontinuedaspirin 81 mg tablet, enteric coated 81 mg=1 tab, PO, Daily, # 90 tab, 3 Refill(s) Start Date: 11/02/16 Status: OrderedceFAZolin (ANES) Route: IV, Drug form: INJ, ONCE, Stop date: 11/02/16 16:56:00 CDT Start Date: 11/02/16 Stop Date: 11/02/16 Status: CompletedCeleBREX 200 mg, 1 cap, Route: PO, Drug form: CAP, Q12H, Dosing Weight 104.545, kg, Start date: 11/03/16 9:00:00 CDT, Duration: 30 day, Stop date: 12/02/16 21:00: 00 CDT Notes: NSAID. Please check indication. Not for seizure. (Same As: CeleBREX) Start Date: 11/03/16 Stop Date: 11/02/16 Status: Canceledcelecoxib 200 mg, 1 cap, Route: PO, Drug form: CAP, Q12H, Dosing Weight 104.545, kg, Start date: 11/01/16 21:00:00 CDT, Duration: 30 day, Stop date: 12/01/16 9:00: 00 CDT Notes: NSAID. Please check indication. Not for seizure. (Same As: CeleBREX) Start Date: 11/01/16 Stop Date: 11/02/16 Status: Voided With Resultscelecoxib 200 mg oral capsule 200 mg=1 cap, PO, Q12H, # 28 cap, 0 Refill(s) Start Date: 11/07/16 Stop Date: 11/21/16 Status: Ordereddexamethasone (ANES) Route: IV, Drug form: INJ, ONCE, Stop date: 11/02/16 16:36:00 CDT Start Date: 11/02/16 Stop Date: 11/02/16 Status: CompletedDextrose 50% Syringe 25 gm, 50 mL, Route: IVP, Drug Form: INJ, Dosing Weight 104.545, kg, PRN, PRN Blood Glucose Results,Start date: 11/02/16 8:12:00 CDT, Duration: 30 day, Stop date: 12/02/16 8:11:00 CDT Start Date: 11/02/16 Stop Date: 11/07/16 Status: DiscontinuedDextrose 50% Syringe 12.5 gm, 25 mL, Route: IVP, Drug Form: INJ, Dosing Weight 104.545, kg, PRN, PRN Blood Glucose Results, Start date: 11/02/16 8:12:00 CDT, Duration: 30 day, Stop date: 12/02/16 8:11:00 CDT Start Date: 11/02/16 Stop Date: 11/07/16 Status: Discontinueddocusate 100 mg, 1 cap, Route: PO, Drug form: CAP, BID, Dosing Weight 104.545, kg, Start date: 11/04/16 17:00:00 CDT, Duration: 30 day, Stop date: 12/04/16 9:00:00 CDT Notes: (Same as: Colace) (Do Not Crush) Start Date: 11/04/16 Stop Date: 11/07/16 Status: Discontinueddocusate 100 mg, 1 cap, Route: PO, Drug form: CAP, Daily, Dosing Weight 104.545, kg, Start date: 11/02/16 9:00:00 CDT, Duration: 30 day, Stop date: 12/01/16 9:00:00 CDT Notes: (Same as: Colace) (Do Not Crush) Start Date: 11/02/16 Stop Date: 11/04/16 Status: Discontinueddocusate sodium 100 mg oral capsule 100 mg=1 cap, PO, Q12H, # 30 cap, 0 Refill(s) Start Date: 11/07/16 Status: OrderedDulcolax Laxative 10 mg, 1 supp, Route: CT, Drug form: SUPP, ONCE, Dosing Weight 104.545, kg, Start date: 11/05/16 15:55:00 CDT, Stop date: 11/05/16 15:55:00 CDT Notes: (Same As: Dulcolax, Bisco-Lax) Start Date: 11/05/16 Stop Date: 11/05/16 Status: CompletedfentaNYL (ANES) Route: IV, Drug form: INJ, ONCE, Stop date: 11/02/16 16:46:00 CDT Start Date: 11/02/16 Stop Date: 11/02/16 Status: Completedgabapentin 300 mg, 1 cap, Route: PO, Drug form: CAP, Q8H, Dosing Weight 104.545, kg, Start date: 11/02/16 16:00:00 CDT, Duration: 30 day, Stop date: 12/02/16 8:00:00 CDT Notes: (Same as: Neurontin) Start Date: 11/02/16 Stop Date: 11/07/16 Status: Discontinuedgabapentin 300 mg oral capsule 300 mg=1 cap, PO, Q8H, # 60 cap, 0 Refill(s) Start Date: 11/07/16 Status: Orderedglucagon 1 mg, Route: IM, Drug form: PDR/INJ, PRN, Dosing Weight 104.545, kg, PRN Blood Glucose Results, Start date: 11/02/16 8:12:00 CDT, Duration: 30 day, Stop date: 12/02/16 8:11:00 CDT Start Date: 11/02/16 Stop Date: 11/07/16 Status: Discontinuedglycopyrrolate (ANES) Route: IV, Drug form: INJ, ONCE, Stop date: 11/02/16 18:21:00 CDT Start Date: 11/02/16 Stop Date: 11/02/16 Status: Completedhydromorphone (ANES) Route: IV, Drug form: INJ, ONCE, Stop date: 11/02/16 16:41:00 CDT Start Date: 11/02/16 Stop Date: 11/02/16 Status: CompletedHYDROmorphone ICT SUPPORT ENGINEER 0.5mg/ml 30ml INJ 15 mg 15 mg, 30 mL, Route: IV, ICT SUPPORT ENGINEER Dose: 0.2 mg, ICT SUPPORT ENGINEER Lockout: 10 minutes, Continuous Basal Rate: 0 mg, 4 Hour Limit (In MG): 6, Drug Form: INJ, Continuous, Start date: 11/02/16 20:00:00 CDT, Duration: 30 day, Stop date: 12/02/16 19:59:00 CDT Notes: (Same as: Dilaudid) conc=0.5 mg/mlHydromorphone ICT SUPPORT ENGINEER Dose: ;Delay : ;Basal: Start Date: 11/02/16 Stop Date: 11/03/16 Status: DiscontinuedInsulin regular 4 unit, 0.04 mL, Route: SUB-Q, Drug form: SOLN, TID-Before Meals, Dosing Weight 104.545, kg, PRN Blood Glucose Results, Start date: 11/03/16 8:19:00 CDT, Duration: 30 day, Stop date: 12/03/16 8:18:00 CDT Notes: (Same as: Humulin R) Roll in palms of hands gently; Do not shake vigorously. "single patientuse only"(Restricted to patients requiring a dose > 60 units)WASTE: F/P - Black; E - Municipal Trash Bin Stable for 28 days at room temperatureExpires in days from Date Start Date: 11/03/16 Stop Date: 11/07/16 Status: DiscontinuedInsulin regular 10 unit, 0.1 mL, Route: SUB-Q, Drug form: SOLN, TID-Before Meals, Dosing Weight 104.545, kg, PRN Blood Glucose Results, Start date: 11/03/16 8:19:00 CDT, Duration: 30 day, Stop date: 12/03/16 8:18:00 CDT Notes: (Same as: Humulin R) Roll in palms of hands gently; Do not shake vigorously. "single patientuse only"(Restricted to patients requiring a dose > 60 units)WASTE: F/P - Black; E - Municipal Trash Bin Stable for 28 days at room temperatureExpires in days from Date Start Date: 11/03/16 Stop Date: 11/07/16 Status: DiscontinuedInsulin regular 6 unit, 0.06 mL, Route: SUB-Q, Drug form: SOLN, TID-Before Meals, Dosing Weight 104.545, kg, PRN Blood Glucose Results, Start date: 11/03/16 8:19:00 CDT, Duration: 30 day, Stop date: 12/03/16 8:18:00 CDT Notes: (Same as: Humulin R) Roll in palms of hands gently; Do not shake vigorously. "single patientuse only"(Restricted to patients requiring a dose > 60 units)WASTE: F/P - Black; E - Municipal Trash Bin Stable for 28 days at room temperatureExpires in days from Date Start Date: 11/03/16 Stop Date: 11/07/16 Status: DiscontinuedInsulin regular 8 unit, 0.08 mL, Route: SUB-Q, Drug form: SOLN, TID-Before Meals, Dosing Weight 104.545, kg, PRN Blood Glucose Results, Start date: 11/03/16 8:19:00 CDT, Duration: 30 day, Stop date: 12/03/16 8:18:00 CDT Notes: (Same as: Humulin R) Roll in palms of hands gently; Do not shake vigorously. "single patientuse only"(Restricted to patients requiring a dose > 60 units)WASTE: F/P - Black; E - Municipal Trash Bin Stable for 28 days at room temperatureExpires in days from Date Start Date: 11/03/16 Stop Date: 11/07/16 Status: DiscontinuedInsulin regular 2 unit, 0.02 mL, Route: SUB-Q, Drug form: SOLN, TID-Before Meals, Dosing Weight 104.545, kg, PRN Blood Glucose Results, Start date: 11/03/16 8:19:00 CDT, Duration: 30 day, Stop date: 12/03/16 8:18:00 CDT Notes: (Same as: Humulin R) Roll in palms of hands gently; Do not shake vigorously. "single patientuse only"(Restricted to patients requiring a dose > 60 units)WASTE: F/P - Black; E - Municipal Trash Bin Stable for 28 days at room temperatureExpires in days from Date Start Date: 11/03/16 Stop Date: 11/07/16 Status: DiscontinuedInsulin regular 5 unit, 0.05 mL, Route: SUB-Q, Drug form: SOLN, TID-Before Meals, Dosing Weight 104.545, kg, PRN Blood Glucose Results, Start date: 11/02/16 8:12:00 CDT, Duration: 30 day, Stop date: 12/02/16 8:11:00 CDT Notes: (Same as: Humulin R) Roll in palms of hands gently; Do not shake vigorously. "single patientuse only"(Restricted to patients requiring a dose > 60 units)WASTE: F/P - Black; E - Municipal Trash Bin Stable for 28 days at room temperatureExpires in days from Date Start Date: 11/02/16 Stop Date: 11/03/16 Status: DiscontinuedInsulin regular 4 unit, 0.04 mL, Route: SUB-Q, Drug form: SOLN, TID-Before Meals, Dosing Weight 104.545, kg, PRN Blood Glucose Results, Start date: 11/02/16 8:12:00 CDT, Duration: 30 day, Stop date: 12/02/16 8:11:00 CDT Notes: (Same as: Humulin R) Roll in palms of hands gently; Do not shake vigorously. "single patientuse only"(Restricted to patients requiring a dose > 60 units)WASTE: F/P - Black; E - Municipal Trash Bin Stable for 28 days at room temperatureExpires in days from Date Start Date: 11/02/16 Stop Date: 11/03/16 Status: DiscontinuedInsulin regular 3 unit, 0.03 mL, Route: SUB-Q, Drug form: SOLN, TID-Before Meals, Dosing Weight 104.545, kg, PRN Blood Glucose Results, Start date: 11/02/16 8:12:00 CDT, Duration: 30 day, Stop date: 12/02/16 8:11:00 CDT Notes: (Same as: Humulin R) Roll in palms of hands gently; Do not shake vigorously. "single patientuse only"(Restricted to patients requiring a dose > 60 units)WASTE: F/P - Black; E - Municipal Trash Bin Stable for 28 days at room temperatureExpires in days from Date Start Date: 11/02/16 Stop Date: 11/03/16 Status: DiscontinuedInsulin regular 2 unit, 0.02 mL, Route: SUB-Q, Drug form: SOLN, TID-Before Meals, Dosing Weight 104.545, kg, PRN Blood Glucose Results, Start date: 11/02/16 8:12:00 CDT, Duration: 30 day, Stop date: 12/02/16 8:11:00 CDT Notes: (Same as: Humulin R) Roll in palms of hands gently; Do not shake vigorously. "single patientuse only"(Restricted to patients requiring a dose > 60 units)WASTE: F/P - Black; E - Municipal Trash Bin Stable for 28 days at room temperatureExpires in days from Date Start Date: 11/02/16 Stop Date: 11/03/16 Status: DiscontinuedInsulin regular 1 unit, 0.01 mL, Route: SUB-Q, Drug form: SOLN, TID-Before Meals, Dosing Weight 104.545, kg, PRN Blood Glucose Results, Start date: 11/02/16 8:12:00 CDT, Duration: 30 day, Stop date: 12/02/16 8:11:00 CDT Notes: (Same as: Humulin R) Roll in palms of hands gently; Do not shake vigorously. "single patientuse only"(Restricted to patients requiring a dose > 60 units)WASTE: F/P - Black; E - Municipal Trash Bin Stable for 28 days at room temperatureExpires in days from Date Start Date: 11/02/16 Stop Date: 11/03/16 Status: DiscontinuedInsulin regular 1 unit, 0.01 mL, Route: SUB-Q, Drug form: SOLN, Bedtime, Dosing Weight 104.545, kg, PRN Blood Glucose Results, Start date: 11/02/16 8:12:00 CDT, Duration: 30 day, Stop date: 12/02/16 8:11:00 CDT Notes: (Same as: Humulin R) Roll in palms of hands gently; Do not shake vigorously. "single patientuse only"(Restricted to patients requiring a dose > 60 units)WASTE: F/P - Black; E - Municipal Trash Bin Stable for 28 days at room temperatureExpires in days from Date Start Date: 11/02/16 Stop Date: 11/07/16 Status: DiscontinuedInsulin regular 3 unit, 0.03 mL, Route: SUB-Q, Drug form: SOLN, Bedtime, Dosing Weight 104.545, kg, PRN Blood Glucose Results, Start date: 11/02/16 8:12:00 CDT, Duration: 30 day, Stop date: 12/02/16 8:11:00 CDT Notes: (Same as: Humulin R) Roll in palms of hands gently; Do not shake vigorously. "single patientuse only"(Restricted to patients requiring a dose > 60 units)WASTE: F/P - Black; E - Municipal Trash Bin Stable for 28 days at room temperatureExpires in days from Date Start Date: 11/02/16 Stop Date: 11/07/16 Status: DiscontinuedInsulin regular 4 unit, 0.04 mL, Route: SUB-Q, Drug form: SOLN, Bedtime, Dosing Weight 104.545, kg, PRN Blood Glucose Results, Start date: 11/02/16 8:12:00 CDT, Duration: 30 day, Stop date: 12/02/16 8:11:00 CDT Notes: (Same as: Humulin R) Roll in palms of hands gently; Do not shake vigorously. "single patientuse only"(Restricted to patients requiring a dose > 60 units)WASTE: F/P - Black; E - Municipal Trash Bin Stable for 28 days at room temperatureExpires in days from Date Start Date: 11/02/16 Stop Date: 11/07/16 Status: DiscontinuedInsulin regular 2 unit, 0.02 mL, Route: SUB-Q, Drug form: SOLN, Bedtime, Dosing Weight 104.545, kg, PRN Blood Glucose Results, Start date: 11/02/16 8:12:00 CDT, Duration: 30 day, Stop date: 12/02/16 8:11:00 CDT Notes: (Same as: Humulin R) Roll in palms of hands gently; Do not shake vigorously. "single patientuse only"(Restricted to patients requiring a dose > 60 units)WASTE: F/P - Black; E - Municipal Trash Bin Stable for 28 days at room temperatureExpires in days from Date Start Date: 11/02/16 Stop Date: 11/07/16 Status: DiscontinuedIsolyte S (PH 7.4) 1000 mL 1,000 mL 1,000 mL, Rate: 100 ml/hr, Infuse over: 10 hr, Route: IV, Dosing Weight 104.545 kg, Total Volume: 1,000, Start date: 11/03/16 8:14:00 CDT, Duration: 30 day, Stop date: 12/03/16 8:13:00 CDT Notes: (Same as: Isolyte S PH 7.4) Start Date: 11/03/16 Stop Date: 11/03/16 Status: DiscontinuedketOROLAC 30 mg, 1 mL, Route: IVP, Drug form: INJ, Q8H, Dosing Weight 104.545, kg, Start date: 11/02/16 0:00:00 CDT, Duration: 3 doses or times, Stop date: 11/02/16 16: 00:00 CDT Notes: (Same as:Toradol) IV bolus must be given >15 seconds. Give IM administration slowly and deeply into the muscle.Not for use > 4 days MEDICATION WASTE Product Size: 30 mgProduct Wasted: ___ mg Start Date: 11/02/16 Stop Date: 11/02/16 Status: Completedlidocaine (ANES) Route: IV, Drug form: INJ, ONCE, Stop date: 11/02/16 16:46:00 CDT Start Date: 11/02/16 Stop Date: 11/02/16 Status: CompletedLidoderm 5% topical film (patch) 1 patch, Route: TOP, Q24H, Drug form: FILM, Start date: 11/03/16 11:00:00 CDT, Duration: 30 day, Stop date: 12/02/16 11:00:00 CDT Notes: Apply only once for up to 12 hours in x79-exuj period (12 hours on and 12 hours off).(Same as: Lidoderm)"Remove old patch before application of new patch" Start Date: 11/03/16 Stop Date: 11/07/16 Status: DiscontinuedLidoderm 5% topical film (patch) 1 patch, TOP, Daily, Remove after 12 hours, # 10 patch, 0 Refill(s) Start Date: 11/07/16 Status: Orderedlisinopril 40 mg, 2 tab, Route: PO, Drug form: TAB, Daily, Start date: 11/05/16 18:00:00 CDT, Duration: 30 day,Stop date: 12/05/16 9:00:00 CDT Notes: (Same as: Prinivil, Zestril) Start Date: 11/05/16 Stop Date: 11/07/16 Status: Discontinuedlisinopril 40 mg, 2 tab, Route: PO, Drug form: TAB, Daily, Dosing Weight 104.545, kg, Start date: 11/03/16 9:00:00 CDT, Duration: 30 day, Stop date: 12/02/16 9:00:00 CDT Notes: (Same as: iverika Zestril) Start Date: 11/03/16 Stop Date: 11/03/16 Status: Discontinuedlisinopril 40 mg oral tablet 40 mg=1 tab, PO, Daily, # 30 tab, 0 Refill(s) Start Date: 11/07/16 Stop Date: 12/07/16 Status: OrderedLovenox 40 mg, 0.4 mL, Route: SUB-Q, Drug form: INJ, [id number], Dosing Weight 104.545, kg , Start date: 11/02/16 14:00:00 CDT, Duration: 30 day, Stop date: 12/02/16 2:00: 00 CDT Notes: (Same as: Lovenox) Start Date: 11/02/16 Stop Date: 11/07/16 Status: DiscontinuedLR 1000 mL INJ (ANES) Route: IV, Total Volume: 1,000, Start date: 11/02/16 15:00:00 CDT, Stop date: 16:00:00 CDT Start Date: 11/02/16 Stop Date: 11/02/16 Status: CompletedmetFORMIN 1000 mg oral tablet 1,000 mg=1 tab, PO, BID-Meals, # 60 tab, 0 Refill(s) Start Date: 11/07/16 Stop Date: 12/07/16 Status: OrderedmetFORMIN 1000 mg oral tablet 1,000 mg, 1 tab, Route: PO, Drug form: TAB, BID, Dosing Weight 104.545, kg, Start date: 11/06/16 10:45:00 CDT, Duration: 30 day, Stop date: 12/06/16 9:00: 00 CDT Notes: Same as Glucophage Start Date: 11/06/16 Stop Date: 11/07/16 Status: DiscontinuedmetFORMIN 1000 mg oral tablet 1,000 mg=1 tab, PO, BID-Meals, # 30 tab, 0 Refill(s) Start Date: 11/02/16 Stop Date: 11/07/16 Status: Discontinuedmidazolam (ANES) Route: IV, Drug form: SOLN, ONCE, Stop date: 11/02/16 16:46:00 CDT Start Date: 11/02/16 Stop Date: 11/02/16 Status: CompletedMiraLax 17 gm, 1 pkt, Route: PO, Drug form: PWDR, BID, Dosing Weight 104.545, kg, Start date: 11/03/16 9:00:00 CDT, Duration: 30 day, Stop date: 12/02/16 17:00:00 CDT Notes: Dissolve in 8 oz of water or juice.(Same as: Miralax) Start Date: 11/03/16 Stop Date: 11/07/16 Status: Discontinuednaloxone 0.04 mg, 0.1 mL, Route: IVP, Drug form: INJ, Q2MIN, Dosing Weight 104.545, kg, PRN Narcotic Reversal, Start date: 11/02/16 20:00:00 CDT, Duration: 30 day, Stop date: 12/02/16 19:59:00 CDT Notes: Same as Narcan Start Date: 11/02/16 Stop Date: 11/03/16 Status: Discontinuednaproxen 500 mg, 1 tab, Route: PO, Drug form: TAB, Q12H, Dosing Weight 104.545, kg, Start date: 11/03/16 9:00:00 CDT, Duration: 30 day, Stop date: 12/02/16 21:00: 00 CDT Notes: (Same as: Naprosyn) Take with food. Start Date: 11/03/16 Stop Date: 11/03/16 Status: Discontinuedneostigmine (ANES) Route: IV, Drug form: INJ, ONCE, Stop date: 11/02/16 18:21:00 CDT Start Date: 11/02/16 Stop Date: 11/02/16 Status: Completedondansetron (ANES) Route: IV, Drug form: INJ, ONCE, Stop date: 11/02/16 18:01:00 CDT Start Date: 11/02/16 Stop Date: 11/02/16 Status: CompletedoxyCODONE 5 mg immediate release 5 mg, 5 mL, Route: PO, Drug form: LIQ, Q6H, Dosing Weight 104.545, kg, Priority : NOW, Start date: 11/01/16 17:19:00 CDT, Duration: 30 day, Stop date: 12/01/16 12:00:00 CDT Notes: (Same as: 'Roxicodone) Start Date: 11/01/16 Stop Date: 11/02/16 Status: DiscontinuedoxyCODONE 5 mg oral tablet 5 mg, 1 tab, Route: PO, Drug form: TAB, Q6H, Dosing Weight 104.545, kg, PRN Pain Score 4-6, Start date: 11/02/16 8:14:00 CDT, Duration: 30 day, Stop date: 12/02/16 8:13:00 CDT Notes: (Same as: Roxicodone) Start Date: 11/02/16 Stop Date: 11/07/16 Status: Discontinuedphenylephrine (ANES) Route: IV, Drug form: INJ, ONCE, Stop date: 11/02/16 17:56:00 CDT Start Date: 11/02/16 Stop Date: 11/02/16 Status: Completedpneumococcal 23-valent vaccine 0.5 mL, Route: IM, Drug Form: INJ, Daily, Start date: 11/02/16 9:00:00 CDT, Duration: 1 doses or times, Stop date: 11/02/16 9:00:00 CDT Notes: (Same as: Pneumovax 23) Refrigerate Start Date: 11/02/16 Stop Date: 11/02/16 Status: Completedpropofol (ANES) Route: IV, Drug form: INJ, ONCE, Stop date: 11/02/16 16:56:00 CDT Start Date: 11/02/16 Stop Date: 11/02/16 Status: Completedremove patch 1 patch, Route: TOP, Bedtime, Drug form: ERFILM, Start date: 11/03/16 23:00:00 CDT, Duration: 30 day, Stop date: 12/02/16 23:00:00 CDT Notes: Remove patch 12 hours after application each day. Start Date: 11/03/16 Stop Date: 11/07/16 Status: Discontinuedrocuronium (ANES) Route: IV, Drug form: INJ, ONCE, Stop date: 11/02/16 16:46:00 CDT Start Date: 11/02/16 Stop Date: 11/02/16 Status: Completedrocuronium (ANES) Route: IV, Drug form: INJ, ONCE, Stop date: 11/02/16 16:56:00 CDT Start Date: 11/02/16 Stop Date: 11/02/16 Status: Completedsenna 17.2 mg, 2 tab, Route: PO, Drug Form: TAB, Dosing Weight 104.545, kg, Bedtime, Start date: 11/02/16 21:00:00 CDT, Duration: 30 day, Stop date: 12/01/16 21:00: 00 CDT Notes: (Same as: Senokot) Start Date: 11/02/16 Stop Date: 11/07/16 Status: Discontinuedsodium chloride 1 gm oral tablet 1 gm, 1 tab, Route: PO, Drug form: TAB, ONCE, Dosing Weight 104.545, kg, Start date: 11/06/16 9:00:00 CDT, Stop date: 11/06/16 9:00:00 CDT Start Date: 11/06/16 Stop Date: 11/06/16 Status: Completedtramadol 100 mg, 2 tab, Route: PO, Drug form: TAB, Q6H, Dosing Weight 104.545, kg, Start date: 11/02/16 18:00:00 CDT, Duration: 30 day, Stop date: 12/02/16 12:00:00 CDT Notes: Not to exceed 400mg/day. (Same As: Ultram) Start Date: 11/02/16 Stop Date: 11/07/16 Status: Discontinuedtramadol 50 mg oral tablet 100 mg=2 tab, PO, Q6H, X 14 day, # 112 tab, 0 Refill(s) Start Date: 11/07/16 Stop Date: 11/21/16 Status: OrderedTylenol 1,000 mg, 2 tab, Route: PO, Drug form: TAB, Q6H, Dosing Weight 104.545, kg, Start date: 11/02/16 16:00:00 CDT, Duration: 30 day, Stop date: 12/02/16 12:00: 00 CDT Notes: Max acetaminophen 4000 mg/day (4 gm/day). (Same as: Tylenol Extra Strength) Start Date: 11/02/16 Stop Date: 11/07/16 Status: Discontinued Results BLOOD BANK RESULTS Most recent to oldest [Reference Range]: 1 2 3 ABO/Rh A NEG *Unknown* (11/02/16 5:29 PM) Antibody Scrn Negative (11/02/16 5:29 PM) ELECTROLYTES Most recent to oldest 1 2 3 [Reference Range]: Sodium Lvl [135-145 mEq/L] 137 mEq/L 134 mEq/L 134 mEq/L (11/07/16 3:25 AM) *LOW* *LOW* (11/06/16 3:39 AM) (11/05/16 3:51 AM) Potassium Lvl [3.5-5.1 4.3 mEq/L 4.5 mEq/L 4.1 mEq/L mEq/L] (11/07/16 3:25 AM) (11/06/16 3:39 AM) (11/05/16 3:51 AM) Chloride Lvl [95-109 mEq/L] 100 mEq/L 98 mEq/L 101 mEq/L (11/07/16 3:25 AM) (11/06/16 3:39 AM) (11/05/16 3:51 AM) CO2 [24-32 mEq/L] 28 mEq/L 24 mEq/L 22 mEq/L (11/07/16 3:25 AM) (11/06/16 3:39 AM) *LOW* (11/05/16 3:51 AM) AGAP [10.0-20.0 mEq/L] 13.3 mEq/L 16.5 mEq/L 15.1 mEq/L (11/07/16 3:25 AM) (11/06/16 3:39 AM) (11/05/16 3:51 AM) CHEM PANEL Most recent to oldest 1 2 3 [Reference Range]: Creatinine Lvl [0.50-1.40 0.88 mg/dL 0.77 mg/dL 0.83 mg/dL mg/dL] (11/07/16 3:25 AM) (11/06/16 3:39 AM) (11/05/16 3:51 AM) eGFR 98 mL/min/1.73m2 1 103 mL/min/1.73m2 2 100 mL/min/1.73m2 3 *NA* *NA* *NA* (11/07/16 3:25 AM) (11/06/16 3:39 AM) (11/05/16 3:51 AM) BUN [7-22 mg/dL] 8 mg/dL 6 mg/dL 7 mg/dL (11/07/16 3:25 AM) *LOW* (11/05/16 3:51 AM) (11/06/16 3:39 AM) B/C Ratio [6-25] 12 (11/02/16 3:53 AM) Glucose Lvl [70-99 mg/dL] 132 mg/dL 143 mg/dL 237 mg/dL *HI* *HI* *HI* (11/07/16 3:25 AM) (11/06/16 3:39 AM) (11/05/16 3:51 AM) Total Protein [6.4-8.4 7.9 g/dL g/dL] (11/02/16 3:53 AM) Albumin Lvl [3.5-5.0 g/dL] 3.4 g/dL *LOW* (11/02/16 3:53 AM) Globulin [2.7-4.2 g/dL] 4.5 g/dL *HI* (11/02/16 3:53 AM) A/G Ratio [0.7-1.6] 0.8 (11/02/16 3:53 AM) Calcium Lvl [8.5-10.5 9.6 mg/dL 9.7 mg/dL 8.9 mg/dL mg/dL] (11/07/16 3:25 AM) (11/06/16 3:39 AM) (11/05/16 3:51 AM) ALT [0-65 unit/L] 23 unit/L (11/02/16 3:53 AM) AST [0-37 unit/L] 9 unit/L (11/02/16 3:53 AM) Alk Phos [39-136 unit/L] 99 unit/L (11/02/16 3:53 AM) Bili Total [0.2-1.3 mg/dL] 0.3 mg/dL (11/02/16 3:53 AM) Lactic Acid Lvl [0.5-2.2 1.1 mMol/L mMol/L] (11/01/16 4:56 PM) 1Result Comment: The eGFR is calculated using the CKD-EPI formula. In most young , healthy individualsthe eGFR will be >90 mL/min/1.73m2. The eGFR declines with age. An eGFR of 60-89 may be normal in some populations, particularly the elderly, for whom the CKD-EPI formula has not been extensively validated. Use of the eGFR is not recommended in the following populations: Individuals with unstable creatinine concentrations, including patients and those with serious co-morbid conditions. Patients with extremes in muscle mass or diet. The data above are obtained from the National Kidney Disease Education Program ( NKDEP) which additionally recommends that when the eGFR is used in patients with extremes of body mass index for purposesof drug dosing, the eGFR should be multiplied by the estimated BMI.2Result Comment: The eGFR is calculated using the CKD-EPI formula. In most young, healthy individualsthe eGFR will be >90 mL/ min/1.73m2. The eGFR declines with age. An eGFR of 60-89 may be normal in some populations, particularly the elderly, for whom the CKD-EPI formula has not been extensively validated. Use of the eGFR is not recommended in the following populations: Individuals with unstable creatinine concentrations, including patients and those with serious co-morbid conditions. Patients with extremes in muscle mass or diet. The data above are obtained from the National Kidney Disease Education Program ( NKDEP) which additionally recommends that when the eGFR is used in patients with extremes of body mass index for purposesof drug dosing, the eGFR should be multiplied by the estimated BMI.3Result Comment: The eGFR is calculated using the CKD-EPI formula. In most young, healthy individualsthe eGFR will be >90 mL/ min/1.73m2. The eGFR declines with age. An eGFR of 60-89 may be normal in some populations, particularly the elderly, for whom the CKD-EPI formula has not been extensively validated. Use of the eGFR is not recommended in the following populations: Individuals with unstable creatinine concentrations, including patients and those with serious co-morbid conditions. Patients with extremes in muscle mass or diet. The data above are obtained from the National Kidney Disease Education Program ( NKDEP) which additionally recommends that when the eGFR is used in patients with extremes of body mass index for purposesof drug dosing, the eGFR should be multiplied by the estimated BMI.HEMATOLOGY Most recent to oldest 1 2 3 [Reference Range]: WBC [3.7-10.4 K/CMM] 6.5 K/CMM 5.7 K/CMM 6.7 K/CMM (11/07/16 3:25 AM) (11/06/16 3:39 AM) (11/05/16 3:51 AM) RBC [4.70-6.10 M/CMM] 3.42 M/CMM 3.27 M/CMM 3.21 M/CMM *LOW* *LOW* *LOW* (11/07/16 3:25 AM) (11/06/16 3:39 AM) (11/05/16 3:51 AM) Hgb [14.0-18.0 g/dL] 10.6 g/dL 10.4 g/dL 10.1 g/dL *LOW* *LOW* *LOW* (11/07/16 3:25 AM) (11/06/16 3:39 AM) (11/05/16 3:51 AM) Hct [42.0-54.0 %] 31.2 % 29.7 % 29.9 % *LOW* *LOW* *LOW* (11/07/16 3:25 AM) (11/06/16 3:39 AM) (11/05/16 3:51 AM) MCV [80.0-94.0 fL] 91.2 fL 90.7 fL 93.2 fL (11/07/16 3:25 AM) (11/06/16 3:39 AM) (11/05/16 3:51 AM) MCH [27.0-31.0 pg] 31.0 pg 31.8 pg 31.6 pg (11/07/16 3:25 AM) *HI* *HI* (11/06/16 3:39 AM) (11/05/16 3:51 AM) MCHC [32.0-36.0 g/dL] 34.0 g/dL 35.1 g/dL 33.9 g/dL (11/07/16 3:25 AM) (11/06/16 3:39 AM) (11/05/16 3:51 AM) RDW [11.5-14.5 %] 13.4 % 13.7 % 13.3 % (11/07/16 3:25 AM) (11/06/16 3:39 AM) (11/05/16 3:51 AM) Platelet [133-450 K/CMM] 493 K/CMM 437 K/CMM 440 K/CMM *HI* (11/06/16 3:39 AM) (11/05/16 3:51 AM) (11/07/16 3:25 AM) MPV [7.4-10.4 fL] 6.6 fL 6.9 fL 6.6 fL *LOW* *LOW* *LOW* (11/07/16 3:25 AM) (11/06/16 3:39 AM) (11/05/16 3:51 AM) Segs [45.0-75.0 %] 47.2 % 47.1 % 52.6 % (11/07/16 3:25 AM) (11/06/16 3:39 AM) (11/05/16 3:51 AM) Lymphocytes [20.0-40.0 %] 33.2 % 32.7 % 27.0 % (11/07/16 3:25 AM) (11/06/16 3:39 AM) (11/05/16 3:51 AM) Monocytes [2.0-12.0 %] 10.5 % 9.9 % 11.0 % (11/07/16 3:25 AM) (11/06/16 3:39 AM) (11/05/16 3:51 AM) Eosinophils [0.0-4.0 %] 7.9 % 9.1 % 8.3 % *HI* *HI* *HI* (11/07/16 3:25 AM) (11/06/16 3:39 AM) (11/05/16 3:51 AM) Basophils [0.0-1.0 %] 1.2 % 1.2 % 1.1 % *HI* *HI* *HI* (11/07/16 3:25 AM) (11/06/16 3:39 AM) (11/05/16 3:51 AM) Segs-Bands # [1.5-8.1 K/CMM] 3.1 K/CMM 2.7 K/CMM 3.5 K/CMM (11/07/16 3:25 AM) (11/06/16 3:39 AM) (11/05/16 3:51 AM) Lymphocytes # [1.0-5.5 2.2 K/CMM 1.9 K/CMM 1.8 K/CMM K/CMM] (11/07/16 3:25 AM) (11/06/16 3:39 AM) (11/05/16 3:51 AM) Monocytes # [0.0-0.8 K/CMM] 0.7 K/CMM 0.6 K/CMM 0.7 K/CMM (11/07/16 3:25 AM) (11/06/16 3:39 AM) (11/05/16 3:51 AM) Eosinophils # [0.0-0.5 0.5 K/CMM 0.5 K/CMM 0.6 K/CMM K/CMM] (11/07/16 3:25 AM) (11/06/16 3:39 AM) *HI* (11/05/16 3:51 AM) Basophils # [0.0-0.2 K/CMM] 0.1 K/CMM 0.1 K/CMM 0.1 K/CMM (11/07/16 3:25 AM) (11/06/16 3:39 AM) (11/05/16 3:51 AM) Toxic Gran slight *NA* (11/03/16 1:25 AM) ACT (TEG) Rapid [86-118 105 seconds seconds] (11/01/16 4:56 PM) Split Point Rapid 0.5 minutes *NA* (11/01/16 4:56 PM) R-time Rapid [0.4-0.7 0.6 minutes minutes] (11/01/16 4:56 PM) K-time Rapid [0.6-2.3 0.9 minutes minutes] (11/01/16 4:56 PM) Angle Rapid [64-80 degrees] 79 degrees (11/01/16 4:56 PM) Max Amplitude Rapid [52-71 74 mm mm] *HI* (11/01/16 4:56 PM) G-value Rapid [5.0-11.6 K 14.5 K d/sc d/sc] *HI* (11/01/16 4:56 PM) Estimated % Lysis Rapid 4.6 % 1 [0.0-7.5 %] (11/01/16 4:56 PM) 1Result Comment: "Significant Findings called to DINO CHRISTOPHERat 11/01/2016 18: 03 ___by BV ___.Read Back OK." Immunizations Not Given Vaccine Date Status Refusal Reason pneumococcal 23-valent vaccine 11/02/16 Not Given Patient Refuses pneumococcal 23-valent vaccine 10/05/16 Not Given Patient Refuses Procedures Procedure Date Related Diagnosis Body Site Appendix operation Shoulder reconstruction Social History Social History Type Response Substance Abuse Use: None. Alcohol Current, Type Beer, Liquor. Frequency: 1-2 times per month. Smoking Status Current every day smoker; Type: Cigarettes; Tobacco use per day : 1; Exposure to Tobacco Smoke None; Cigarette Smoking Last 365 Days Yes; Reg Smoking Cessation Counseling No Assessment and Plan Extracted from: Title: trauma pn Author: Brenden Hylton MD Date: 11/06/16 [facility] Progress Note: Today's Date: 11/06/16 Chief Complaint: "a lot better, but still hurts in my chest around the chest tube" Overnight Events: GI In Hospital Operations: 11/02/16: R thoracotomy, evacuation of CORETTA, decortication, ribs 7-9 plating Daily Events: 11/02: OR 11/03: GI 11/04: CT placed to waterseal 11/05: 1 CT removed, post pull stable, no acute events overnight Physical Examination/Findings: Vitals Tmp(F) Tmp(C) Ttype BP MAP Pulse RR SpO2 FIO2 ETCO2 11/06 07:49 98 36.67 oral 112/76 --- 89 18 94 --- --- 11/06 03:04 98.4 36.89 oral 116/64 --- 88 18 96 21% --- 11/05 23:01 98 36.67 oral 128/87 --- 96 18 96 21% --- 11/05 19:23 97.7 36.50 oral 157/90 --- 86 18 95 21% --- 11/05 15:26 98.8 37.11 oral 162/99 --- 108 20 96 --- --- 24 Hr Tmax: 98.8F (37.11c) at 11/05 15:26 24 Hr Tmin: 97.7F (36.50c) at 19:23 36 Hr Tmax: 98.8F (37.11c) at 11/05 15:26 36 Hr Tmin: 97.7F (36.50c) at 19:23 Scheduled Meds (9): 11/02/16 16:00 acetaminophen (Tylenol) 1,000 mg PO Q6H 11/02/16 9:00 docusate 100 mg PO Daily 11/02/16 14:00 enoxaparin (Lovenox) 40 mg SUB-Q [id number] 11/02/16 16:00 gabapentin 300 mg PO Q8H 11/03/16 11:00 lidocaine topical (Lidoderm 5% topical film (patch)) 1 patch TOP Q24H 11/03/16 9:00 polyethylene glycol 3350 (MiraLax) 17 gm PO BID 11/03/16 23:00 remove patch 1 patch TOP Bedtime 11/02/16 21:00 senna 17.2 mg PO Bedtime 11/02/16 18:00 tramadol 100 mg PO Q6H Unscheduled Meds: None PRN Meds (14): 11/02/16 8:12 Dextrose 50% in Water IV (Dextrose 50% Syringe) 12.5 gm IVP PRN 11/02/16 8:12 Dextrose 50% in Water IV (Dextrose 50% Syringe) 25 gm IVP PRN 11/02/16 8:12 Insulin regular 1 unit SUB-Q Bedtime 11/02/16 8:12 Insulin regular 2 unit SUB-Q Bedtime 11/02/16 8:12 Insulin regular 3 unit SUB-Q Bedtime 11/02/16 8:12 Insulin regular 4 unit SUB-Q Bedtime 11/03/16 8:19 Insulin regular 2 unit SUB-Q TID-Before Meals 11/03/16 8:19 Insulin regular 4 unit SUB-Q TID-Before Meals 11/03/16 8:19 Insulin regular 6 unit SUB-Q TID-Before Meals 11/03/16 8:19 Insulin regular 8 unit SUB-Q TID-Before Meals 11/03/16 8:19 Insulin regular 10 unit SUB-Q TID-Before Meals 11/02/16 8:12 glucagon 1 mg IM PRN 11/02/16 20:00 naloxone 0.04 mg IVP Q2MIN 11/02/16 8:14 oxyCODONE (oxyCODONE 5 mg oral tablet) 5 mg PO Q6H One Time Meds (14): (Completed) acetaminophen (acetaminophen (ANES)) IV ONCE (Completed) ceFAZolin (ceFAZolin (ANES)) IV ONCE (Completed) dexamethasone (dexamethasone (ANES)) IV ONCE (Completed) fentaNYL (fentaNYL (ANES)) IV ONCE (Completed) glycopyrrolate (glycopyrrolate (ANES)) IV ONCE (Completed) hydromorphone (hydromorphone (ANES)) IV ONCE (Completed) lidocaine (lidocaine (ANES)) IV ONCE (Completed) midazolam (midazolam (ANES)) IV ONCE (Completed) neostigmine (neostigmine (ANES)) IV ONCE (Completed) ondansetron (ondansetron (ANES)) IV ONCE (Completed) phenylephrine (phenylephrine (ANES)) IV ONCE (Completed) propofol (propofol (ANES)) IV ONCE (Completed) rocuronium (rocuronium (ANES)) IV ONCE (Completed) rocuronium (rocuronium (ANES)) IV ONCE Continuous Infusions (2): 11/02/16 20:00 HYDROmorphone ICT SUPPORT ENGINEER 0.5mg/ml 30ml INJ 15 mg 15 mg Per ICT SUPPORT ENGINEER Order as Directed 11/03/16 8:14 Isolyte S (PH 7.4) 1000 mL 1,000 mL 1,000 mL 100 ml/hr Constitutional/Neuro/Psych: GCS: Eye: 4 Verbal: 5 Motor: 6 Total: 15 Cranial nerve exam: intact Sensation: SILT in all extremities Judgement: appropriate Orientation: AAOx3 Memory/mood: intact HEENT: Eyes: EOMI Conjuctiva and Eye lids: atraumatic Pupils: PERRL Ears and Nose: atraumatic Lips and Teeth: atraumatic Neck: soft, trachea midline Cardiovascular: Cardiac examination: RRR Extremity Edema: none Pulse exam: radial 2+ Pulmonary: Chest examination : nonlabored respirations, sating 96% on RA, symmetric chest expansion. Dressing c/d/i CXR: stable Right Chest tube: water seal, 100 cc output over 24 hours, no air leak present GI/Nutrition: Abdominal exam: soft, nontender, nondistended Type of Diet: DM diet Genitourinary: 11/06 0623 Glucose POC 155 H 11/06 0339 Glucose Lvl 143 H BUN 6 L Creatinine Lvl 0.77 Sodium Lvl 134 L Potassium Lvl 4.5 Chloride Lvl 98 CO2 24 AGAP 16.5 Calcium Lvl 9.7 eGFR 103 IVF: none I/O Intake Output Balance 11/05/2016 7a-3p 800.00 0.00 800.00 3p-11p 400.00 60.00 340.00 11p-7a 400.00 40.00 360.00 Totals 1600.00 100.00 1500.00 11/04/2016 7a-3p 640.00 350.00 290.00 3p-11p 270.00 710.00 -440.00 11p-7a 0.00 1570.00 -1570.00 Totals 910.00 2630.00 -1720.00 chirag gonzalez Infectious Disease/Hematology: 24 Hr Tmax: 98.8F (37.11c) at 11/05 15:26 24 Hr Tmin: 97.7F (36.50c) at 19:23 36 Hr Tmax: 98.8F (37.11c) at 11/05 15:26 36 Hr Tmin: 97.7F (36.50c) at 19:23 WBC 5.7 RBC 3.27 L Hgb 10.4 L Hct 29.7 L MCV 90.7 MCH 31.8 H MCHC 35.1 RDW 13.7 Platelet 437 MPV 6.9 L Segs 47.1 Monocytes 9.9 Lymphocytes 32.7 Eosinophils 9.1 H Basophils 1.2 H Segs-Bands # 2.7 Lymphocytes # 1.9 Monocytes # 0.6 Eosinophils # 0.5 Basophils # 0.1 Central venous access: none DVT prophylaxis: lovenox 40 q 12 Endocrine: Glucose range: 155 24 Hour Insulin requirements: 16 units Musculoskeletal/Skin: Activity: OOB Weightbearing status: WBAT Skin/wound examination: R thoracotomy dressing c/d/i Extremity examination: 10/30 motor all extremities Disposition: pending removal of chest tubes PT/OT Plan: PT cleared SW Plan: pending CM Plan: home w/ family care Assessment and Plan: 51 year old M status post [facility]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 Injuries and plan as follows: Injuries: Consults/Plans: 1. Right hemothorax 1. s/p R thoracotomy, evacuation of CORETTA, decortication, ribs 7-9 plating 11/02/16 2. R 3-8 displaced rib fxs 2. s/p R thoracotomy, evacuation of CORETTA, decortication, ribs 7-9 plating 11/02/16 Additionally, will ... N: MMP HEENT: no issues Pulm: IS 1500/1065. CTx1 w/ 100 cc output. will remove last CT today CV: RRR. HTN-currently normotensive, lisinopril restarted GI: bowel regimen : Cr 0.77 from 0.83 H/ID: Acute blood loss anemia, Hgb stable 10.4 Endo: Hyperglycemia - increased insulin sliding scale to medium dose, home metformin BID MSK: no issues Ppx: lovenox Dispo: pending removal of chest tube Brenden Amezquita General Surgery PGY1 Addendum by Mandie Obrien MD on Trauma and Surgical Critical Care Faculty Addendum 11/06/2016 17:51 I have seen and examined the patient with the resident. I have reviewed the pertinent laboratory values and imaging studies. I agree with the assessment and plan as documented in the attached note and as detailed below: Hyperglycemia and diabetes mellitus (unknown level of control) Hypertension (present on admission) Right hemothorax s/p thoracotomy -- remove 2nd chest tube and check follow up CXR Mandie Obrien MD Extracted from: Title: 51 M 3 weeks out from [facility] v [facility] Author: Larry Bonilla MD Date : 11/01/16 w/ mult R rib fx p/w delayed R hemothorax [facility] History and Physical Date of Admission: 11/01/2016 Requesting Surgeon: Moy Pinto MD Admitting Trauma Surgeon: Onel eDan III, MD Time of Initial Patient Assessment: 16:53 Chief Complaint: "Right upper abdomen pain" History of Present Illness: 51 M s/p [facility] v [facility] 3 weeks prior returns to [facility] after developing worsening chest and abdominal pain in the last several days. The pain is exacerbated by laying down all night, hurting mo re in the morning. The pain radiates from the right chest down into the abdomen and waxes and wanes between a 4 out of 10 and an 8 out of 10. Past Medical History: 1. HTN 2. DM Past Surgical History: 1. Appendectomy 2. Should reconstruction Home Medications: 1. Lisinopril 40mg PO daily 2. Metformin discontinued recently per patient Allergies: 1. 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 Mother/Father: DM2 2. Father: [place] Review of Systems: Constitutional: Negative Eyes: Negative Ears/Nose/Throat: Negative CV: Negative for hypotension; negative for tachycardia Resp: Negative for respiratory distress; positive for diminished breath sounds on the right GI: Negative : Negative MSK: Positive for Right chest pain Skin: Negative Neuro: Negative Psych: Negative Endo: Positive for DM Physical Examination: Vitals Tmp(F) Tmp(C) Ttype BP MAP Pulse RR SpO2 FIO2 ETCO2 11/01 20:49 98.7 37.06 oral 115/61 --- 96 18 95 --- --- 11/01 19:25 ---- ---- ---- 124/86 99 91 18 97 --- --- 11/01 18:37 97.0 36.11 oral 122/95 --- 92 16 98 --- --- 11/01 14:21 97.8 36.56 oral 107/72 --- 88 16 99 --- --- 24 Hr Tmax: 98.7F (37.06c) at 11/01 20:49 24 Hr Tmin: 97.0F (36.11c) at 18:37 36 Hr Tmax: 98.7F (37.06c) at 11/01 20:49 36 Hr Tmin: 97.0F (36.11c) at 18:37 Neuro: NAD. AAO x 3. Pleasant. Cooperative. Head: NCAT. Eyes: PERRL. TMs: Negative for blood Nose/throat: Atraumatic Neck: Soft, supple Chest: Negative for tympany, CTA(B), diminished on the right. TTP over R thorax. Abdomen: Soft, non-distended, non-tender Pelvis: Stable, negative for tenderness Genital: Deferred Rectal: Deferred Back: Positive for mild to moderate tenderness Extremities: MAEFROM Vascular: 2+ Radial and 2+ DP B. Labs: 11/01 2215 Glucose POC 209 H 11/01 1656 Temp Brayden 37.0 pH Brayden 7.40 pCO2 Brayden 48 pO2 Brayden 17 L HCO3 Brayden 30 H BE Brayden 4 H O2 Sat Brayden 24.2 L Glucose Lvl 102 H BUN 10 Creatinine Lvl 0.88 Sodium Lvl 135 Potassium Lvl 4.4 Chloride Lvl 99 CO2 28 AGAP 12.4 Calcium Lvl 9.4 eGFR 98 Lactic Acid Lvl 1.1 ACT (TEG) Rapid 105 Split Point Rapid 0.5 R-time Rapid 0.6 K-time Rapid 0.9 Angle Rapid 79 Max Amplitude Rapid 74 H G-value Rapid 14.5 H Estimated % Lysis Rapi 4.6 WBC 6.9 RBC 4.17 L Hgb 13.3 L Hct 37.8 L MCV 90.5 MCH 32.0 H MCHC 35.3 RDW 13.2 Platelet 472 H EKG: Pending Radiology: Chest XRay / CT: Final reads from OSH pending. Assessment and Plan: 51 M s/p [facility] v [facility] 3 weeks prior returns to [facility] after developing worsening chest and abdominal pain in the last several days. The pain is exacerbated by laying down all night, hurting mo re in the morning. The pain radiates from the right chest down into the abdomen and waxes and wanes between a 4 out of 10 and an 8 out of 10.. Injuries and plan as follows: Injuries: Consults/Plans: 1. Right hemothorax 1. Plan OR tmw for VATS, washout, possible decortication 2. Multiple displaced right rib fractures 2. Plan OR tmw for rib plating Additionally, Admit to [facility] [address] Acute Trauma Floor Regular Diet then NPO past midnight DVT ppx: SCD/[place] [id number] TRAUMA ATTENDING ADDENDUM I have seen and examined patient with provider and concur with their findings and plan as noted. 1. Retained right hemothorax s/p trauma: Rib fracture displacement worse on this ct vs last admission. Evidence of hemothorax. Admit to floor, NPO @ 0001 for possible rib plating, VATS, and all indicated procedures. 2. FULL CODE DOS 11/01/2016 Onel Dean III, MD MSO [id number]
--- OUTSIDE RECORDS SUMMARY | 2018-01-31 08:10 | XMS REPORT | Summary of Care ---
:1965 Author Organization [facility] Address [address] [place] [id number]- Encounter HQ Chandler_[email or web address](FIN) [id number] Date(s): 10/04/16 - 10/06/[address] Professional Services provided by [facility] [place] [address]- Discharge Disposition: Home or Self Care Attending Physician: Xavier Vang MD Admitting Physician: Xavier Vang MD Referring Physician: Solomon Lopez MD Vital Signs Most recent to oldest 1 2 3 [Reference Range]: Height 175.26 cm 175.26 cm (10/05/16 3:27 AM) (10/04/16 8:08 PM) Temperature Oral [96.4-99.1 98.3 DegF 98.3 DegF 98.7 DegF DegF] (10/06/16 3:26 PM) (10/06/16 11:45 AM) (10/06/16 8:27 AM) Blood Pressure [90-140/60-90 122/90 mmHg 120/72 mmHg 116/74 mmHg mmHg] (10/06/16 3:26 PM) (10/06/16 11:45 AM) (10/06/16 8:27 AM) Respiratory Rate [14-20 BRMIN] 20 BRMIN 20 BRMIN 18 BRMIN (10/06/16 3:26 PM) (10/06/16 11:45 AM) (10/06/16 8:27 AM) Peripheral Pulse Rate [60-100 87 bpm 89 bpm 82 bpm bpm] (10/06/16 3:26 PM) (10/06/16 11:45 AM) (10/06/16 8:27 AM) Weight 109.091 kg 106.818 kg (10/05/16 3:27 AM) (10/04/16 8:08 PM) Body Mass Index 35.52 m2 34.78 m2 (10/05/16 3:27 AM) (10/04/16 8:08 PM) Problem List Condition Effective Dates Status Health Status Informant DM (diabetes mellitus)(Confirmed) Active Hypertension(Confirmed) Active Allergies, Adverse Reactions, Alerts Substance Reaction Severity Status NKDA Active Medications acetaminophen 1,000 mg, 2 tab, Route: PO, Drug form: TAB, Q6H, Dosing Weight 109.091, kg, Start date: 10/05/16 12:00:00 CDT, Duration: 30 day, Stop date: 11/04/16 6:00: 00 CDT Notes: Max acetaminophen 4000 mg/day (4 gm/day). (Same as: Tylenol Extra Strength) Start Date: 10/05/16 Stop Date: 10/06/16 Status: Discontinuedacetaminophen 650 mg, 2 tab, Route: PO, Drug form: TAB, Q6H, Dosing Weight 106.818, kg, PRN Pain Score 1-3, Start date: 10/05/16 3:16:00 CDT, Duration: 30 day, Stop date: 11/04/16 3:15:00 CDT Notes: Do not exceed 4 gm/day. (Same as: Tylenol) Start Date: 10/05/16 Stop Date: 10/05/16 Status: Discontinuedacetaminophen 500 mg oral tablet 1,000 mg=2 tab, PO, Q6H, # 50 tab, 0 Refill(s) Start Date: 10/06/16 Stop Date: 10/20/16 Status: Orderedalbuterol 0.083% inhalation solution 2.49 mg, 3 mL, Route: NEB, Drug form: SOLN, Q4H, Dosing Weight 106.818, kg, PRN Wheezing, Start date: 10/05/16 1:52:00 CDT, Duration: 30 day, Stop date: 1:51:00 CDT Notes: SEE RT DOCUMENTATION (Same as: Proventil) Start Date: 10/05/16 Stop Date: 10/06/16 Status: Discontinuedaspirin 325 mg, 1 tab, Route: PO, Drug form: TAB, Daily, Dosing Weight 109.091, kg, Start date: 10/05/16 13:30:00 CDT, Duration: 30 day, Stop date: 11/04/16 9:00: 00 CDT Notes: Take with food. Start Date: 10/05/16 Stop Date: 10/06/16 Status: Discontinuedaspirin 325 mg tablet, enteric coated 325 mg, PO, Daily, # 30 tab, 0 Refill(s) Start Date: 10/06/16 Status: OrderedCeleBREX 200 mg, 1 cap, Route: PO, Drug form: CAP, Q12H, Dosing Weight 109.091, kg, Start date: 10/05/16 9:00:00 CDT, Stop date: 11/03/16 21:00:00 CDT Notes: NSAID. Please check indication. Not for seizure. (Same As: CeleBREX) Start Date: 10/05/16 Stop Date: 10/06/16 Status: Discontinuedcelecoxib 200 mg oral capsule 200 mg=1 cap, PO, Q12H, # 40 cap, 0 Refill(s) Start Date: 10/06/16 Status: OrderedDextrose 50% Syringe 25 gm, 50 mL, Route: IVP, Drug Form: INJ, Dosing Weight 109.091, kg, PRN, PRN Blood Glucose Results,Start date: 10/05/16 16:41:00 CDT, Duration: 30 day, Stop date: 11/04/16 16:40:00 CDT Start Date: 10/05/16 Stop Date: 10/06/16 Status: DiscontinuedDextrose 50% Syringe 12.5 gm, 25 mL, Route: IVP, Drug Form: INJ, Dosing Weight 109.091, kg, PRN, PRN Blood Glucose Results, Start date: 10/05/16 16:41:00 CDT, Duration: 30 day, Stop date: 11/04/16 16:40:00 CDT Start Date: 10/05/16 Stop Date: 10/06/16 Status: DiscontinuedDextrose 50% Syringe 12.5 gm, 25 mL, Route: IVP, Drug Form: INJ, Dosing Weight 109.091, kg, PRN, PRN Blood Glucose Results, Start date: 10/05/16 20:50:00 CDT, Duration: 30 day, Stop date: 11/04/16 20:49:00 CDT Start Date: 10/05/16 Stop Date: 10/06/16 Status: DiscontinuedDextrose 50% Syringe 25 gm, 50 mL, Route: IVP, Drug Form: INJ, Dosing Weight 109.091, kg, PRN, PRN Blood Glucose Results,Start date: 10/05/16 20:50:00 CDT, Duration: 30 day, Stop date: 11/04/16 20:49:00 CDT Start Date: 10/05/16 Stop Date: 10/06/16 Status: Discontinueddocusate 100 mg, 1 cap, Route: PO, Drug form: CAP, Q12H, Dosing Weight 109.091, kg, Start date: 10/05/16 9:00:00 CDT, Stop date: 11/03/16 21:00:00 CDT Notes: (Same as: Colace) (Do Not Crush) Start Date: 10/05/16 Stop Date: 10/06/16 Status: Discontinueddocusate sodium 100 mg oral capsule 100 mg=1 cap, PO, Q12H, # 30 cap, 0 Refill(s) Start Date: 10/06/16 Status: Orderedenoxaparin 40 mg, 0.4 mL, Route: SUB-Q, Drug form: INJ, Q12H, Dosing Weight 109.091, kg, Start date: 10/05/16 9:00:00 CDT, Duration: 30 day, Stop date: 11/04/16 4:00:00 CDT Notes: (Same as: Lovenox) Start Date: 10/05/16 Stop Date: 10/06/16 Status: Discontinuedenoxaparin 30 mg, 0.3 mL, Route: SUB-Q, Drug form: INJ, Q12H, Dosing Weight 106.818, kg, Start date: 10/05/16 2:00:00 CDT, Duration: 30 day, Stop date: 11/03/16 16:00: 00 CDT Notes: (Same as: Lovenox) Start Date: 10/05/16 Stop Date: 10/05/16 Status: Discontinuedgabapentin 300 mg oral capsule 300 mg, 1 cap, Route: PO, Drug form: CAP, Q8H, Dosing Weight 109.091, kg, (CrCl > 60 ml/min), Start date: 10/06/16 16:00:00 CDT, Duration: 30 day, Stop date: 8:00:00 CDT Notes: (Same as: Neurontin) Start Date: 10/06/16 Stop Date: 10/06/16 Status: Discontinuedgabapentin 300 mg oral capsule 300 mg=1 cap, PO, Q8H, # 60 cap, 0 Refill(s) Start Date: 10/06/16 Status: Orderedglucagon 1 mg, Route: IM, Drug form: PDR/INJ, PRN, Dosing Weight 109.091, kg, PRN Blood Glucose Results, Start date: 10/05/16 16:41:00 CDT, Duration: 30 day, Stop date : 11/04/16 16:40:00 CDT Start Date: 10/05/16 Stop Date: 10/06/16 Status: Discontinuedglucagon 1 mg, Route: IM, Drug form: PDR/INJ, PRN, Dosing Weight 109.091, kg, PRN Blood Glucose Results, Start date: 10/05/16 20:50:00 CDT, Duration: 30 day, Stop date : 11/04/16 20:49:00 CDT Start Date: 10/05/16 Stop Date: 10/06/16 Status: DiscontinuedInsulin regular 12 unit, Route: SUB-Q, TID-Before Meals, Dosing Weight 109.091, kg, PRN Blood Glucose Results, Startdate: 10/05/16 19:57:00 CDT, Duration: 30 day, Stop date: 11/04/16 19:56:00 CDT Start Date: 10/05/16 Stop Date: 10/05/16 Status: DiscontinuedInsulin regular 15 unit, Route: SUB-Q, TID-Before Meals, Dosing Weight 109.091, kg, PRN Blood Glucose Results, Startdate: 10/05/16 19:57:00 CDT, Duration: 30 day, Stop date: 11/04/16 19:56:00 CDT Start Date: 10/05/16 Stop Date: 10/05/16 Status: DiscontinuedInsulin regular 6 unit, Route: SUB-Q, TID-Before Meals, Dosing Weight 109.091, kg, PRN Blood Glucose Results, Start date: 10/05/16 19:57:00 CDT, Duration: 30 day, Stop date : 11/04/16 19:56:00 CDT Start Date: 10/05/16 Stop Date: 10/05/16 Status: DiscontinuedInsulin regular 3 unit, Route: SUB-Q, TID-Before Meals, Dosing Weight 109.091, kg, PRN Blood Glucose Results, Start date: 10/05/16 19:57:00 CDT, Duration: 30 day, Stop date : 11/04/16 19:56:00 CDT Start Date: 10/05/16 Stop Date: 10/05/16 Status: DiscontinuedInsulin regular 9 unit, Route: SUB-Q, TID-Before Meals, Dosing Weight 109.091, kg, PRN Blood Glucose Results, Start date: 10/05/16 19:57:00 CDT, Duration: 30 day, Stop date : 11/04/16 19:56:00 CDT Start Date: 10/05/16 Stop Date: 10/05/16 Status: DiscontinuedInsulin regular 15 unit, 0.15 mL, Route: SUB-Q, Drug form: SOLN, TID-Before Meals, Dosing Weight 109.091, kg, PRN Blood Glucose Results, Start date: 10/05/16 16:41:00 CDT , Duration: 30 day, Stop date: 11/04/16 16:40:00 CDT Notes: (Same as: Humulin R) Roll in palms of hands gently; Do not shake vigorously. "single patientuse only"(Restricted to patients requiring a dose > 60 units)WASTE: F/P - Black; E - Municipal Trash Bin Stable for 28 days at room temperatureExpires in days from Date Start Date: 10/05/16 Stop Date: 10/06/16 Status: DiscontinuedInsulin regular 9 unit, 0.09 mL, Route: SUB-Q, Drug form: SOLN, TID-Before Meals, Dosing Weight 109.091, kg, PRN Blood Glucose Results, Start date: 10/05/16 16:41:00 CDT, Duration: 30 day, Stop date: 11/04/16 16:40:00CDT Notes: (Same as: Humulin R) Roll in palms of hands gently; Do not shake vigorously. "single patientuse only"(Restricted to patients requiring a dose > 60 units)WASTE: F/P - Black; E - Municipal Trash Bin Stable for 28 days at room temperatureExpires in days from Date Start Date: 10/05/16 Stop Date: 10/06/16 Status: DiscontinuedInsulin regular 12 unit, 0.12 mL, Route: SUB-Q, Drug form: SOLN, TID-Before Meals, Dosing Weight 109.091, kg, PRN Blood Glucose Results, Start date: 10/05/16 16:41:00 CDT , Duration: 30 day, Stop date: 11/04/16 16:40:00 CDT Notes: (Same as: Humulin R) Roll in palms of hands gently; Do not shake vigorously. "single patientuse only"(Restricted to patients requiring a dose > 60 units)WASTE: F/P - Black; E - Municipal Trash Bin Stable for 28 days at room temperatureExpires in days from Date Start Date: 10/05/16 Stop Date: 10/06/16 Status: DiscontinuedInsulin regular 3 unit, 0.03 mL, Route: SUB-Q, Drug form: SOLN, TID-Before Meals, Dosing Weight 109.091, kg, PRN Blood Glucose Results, Start date: 10/05/16 16:41:00 CDT, Duration: 30 day, Stop date: 11/04/16 16:40:00CDT Notes: (Same as: Humulin R) Roll in palms of hands gently; Do not shake vigorously. "single patientuse only"(Restricted to patients requiring a dose > 60 units)WASTE: F/P - Black; E - Municipal Trash Bin Stable for 28 days at room temperatureExpires in days from Date Start Date: 10/05/16 Stop Date: 10/06/16 Status: DiscontinuedInsulin regular 6 unit, 0.06 mL, Route: SUB-Q, Drug form: SOLN, TID-Before Meals, Dosing Weight 109.091, kg, PRN Blood Glucose Results, Start date: 10/05/16 16:41:00 CDT, Duration: 30 day, Stop date: 11/04/16 16:40:00CDT Notes: (Same as: Humulin R) Roll in palms of hands gently; Do not shake vigorously. "single patientuse only"(Restricted to patients requiring a dose > 60 units)WASTE: F/P - Black; E - Municipal Trash Bin Stable for 28 days at room temperatureExpires in days from Date Start Date: 10/05/16 Stop Date: 10/06/16 Status: DiscontinuedInsulin regular 5 unit, 0.05 mL, Route: SUB-Q, Drug form: SOLN, TID-Before Meals, Dosing Weight 109.091, kg, Start date: 10/06/16 7:30:00 CDT, Duration: 30 day, Stop date: 04/13 16:30:00 CDT Notes: (Same as: Humulin R) Roll in palms of hands gently; Do not shake vigorously. "single patientuse only"(Restricted to patients requiring a dose > 60 units)WASTE: F/P - Black; E - Municipal Trash Bin Stable for 28 days at room temperatureExpires in days from Date Start Date: 10/06/16 Stop Date: 10/06/16 Status: DiscontinuedInsulin regular 8 unit, 0.08 mL, Route: SUB-Q, Drug form: SOLN, TID-Before Meals, Dosing Weight 106.818, kg, PRN Blood Glucose Results, Start date: 10/05/16 1:52:00 CDT, Duration: 30 day, Stop date: 11/04/16 1:51:00 CDT Notes: (Same as: Humulin R) Roll in palms of hands gently; Do not shake vigorously. "single patientuse only"(Restricted to patients requiring a dose > 60 units)WASTE: F/P - Black; E - Municipal Trash Bin Stable for 28 days at room temperatureExpires in days from Date Start Date: 10/05/16 Stop Date: 10/05/16 Status: DiscontinuedInsulin regular 6 unit, 0.06 mL, Route: SUB-Q, Drug form: SOLN, TID-Before Meals, Dosing Weight 106.818, kg, PRN Blood Glucose Results, Start date: 10/05/16 1:52:00 CDT, Duration: 30 day, Stop date: 11/04/16 1:51:00 CDT Notes: (Same as: Humulin R) Roll in palms of hands gently; Do not shake vigorously. "single patientuse only"(Restricted to patients requiring a dose > 60 units)WASTE: F/P - Black; E - Municipal Trash Bin Stable for 28 days at room temperatureExpires in days from Date Start Date: 10/05/16 Stop Date: 10/05/16 Status: DiscontinuedInsulin regular 10 unit, 0.1 mL, Route: SUB-Q, Drug form: SOLN, TID-Before Meals, Dosing Weight 106.818, kg, PRN Blood Glucose Results, Start date: 10/05/16 1:52:00 CDT, Duration: 30 day, Stop date: 11/04/16 1:51:00 CDT Notes: (Same as: Humulin R) Roll in palms of hands gently; Do not shake vigorously. "single patientuse only"(Restricted to patients requiring a dose > 60 units)WASTE: F/P - Black; E - Municipal Trash Bin Stable for 28 days at room temperatureExpires in days from Date Start Date: 10/05/16 Stop Date: 10/05/16 Status: DiscontinuedInsulin regular 4 unit, 0.04 mL, Route: SUB-Q, Drug form: SOLN, TID-Before Meals, Dosing Weight 106.818, kg, PRN Blood Glucose Results, Start date: 10/05/16 1:52:00 CDT, Duration: 30 day, Stop date: 11/04/16 1:51:00 CDT Notes: (Same as: Humulin R) Roll in palms of hands gently; Do not shake vigorously. "single patientuse only"(Restricted to patients requiring a dose > 60 units)WASTE: F/P - Black; E - Municipal Trash Bin Stable for 28 days at room temperatureExpires in days from Date Start Date: 10/05/16 Stop Date: 10/05/16 Status: DiscontinuedInsulin regular 2 unit, 0.02 mL, Route: SUB-Q, Drug form: SOLN, TID-Before Meals, Dosing Weight 106.818, kg, PRN Blood Glucose Results, Start date: 10/05/16 1:52:00 CDT, Duration: 30 day, Stop date: 11/04/16 1:51:00 CDT Notes: (Same as: Humulin R) Roll in palms of hands gently; Do not shake vigorously. "single patientuse only"(Restricted to patients requiring a dose > 60 units)WASTE: F/P - Black; E - Municipal Trash Bin Stable for 28 days at room temperatureExpires in days from Date Start Date: 10/05/16 Stop Date: 10/05/16 Status: DiscontinuedLidoderm 5% topical film (patch) 1 patch, Route: TOP, Daily, Drug form: FILM, rib fractures, Start date: 9:00:00 CDT, Duration: 30 day, Stop date: 11/03/16 9:00:00 CDT, Remove after 12 hours Notes: Apply only once for up to 12 hours in [id number] period (12 hours on and 12 hours off).(Same as: Lidoderm)"Remove old patch before application of new patch" Start Date: 10/05/16 Stop Date: 10/06/16 Status: DiscontinuedLidoderm 5% topical film (patch) 1 patch, TOP, Daily, Remove after 12 hours, # 10 patch, 0 Refill(s) Start Date: 10/06/16 Status: Orderedlisinopril 40 mg, 2 tab, Route: PO, Drug form: TAB, Daily, Dosing Weight 106.818, kg, Priority: STAT, Start date: 10/05/16 1:55:00 CDT, Duration: 30 day, Stop date: 11/03/16 9:00:00 CDT Notes: (Same as: Yolanda Sanchez) Start Date: 10/05/16 Stop Date: 10/06/16 Status: Discontinuedlisinopril 40 mg oral tablet 40 mg=1 tab, PO, Daily, # 30 tab, 0 Refill(s) Start Date: 10/06/16 Status: OrderedLyrica 100 mg, 1 cap, Route: PO, Drug form: CAP, Q8H, Dosing Weight 109.091, kg, Start date: 10/05/16 8:00:00 CDT, Duration: 30 day, Stop date: 11/04/16 0:00:00 CDT Notes: (Same as: Lyrica) Start Date: 10/05/16 Stop Date: 10/06/16 Status: Discontinuedmagnesium sulfate 2 gm, 50 mL, Route: IVPB, Drug form: INJ, ONCE, Dosing Weight 109.091, kg, Total dose=2 gm, Start date: 10/05/16 11:23:00 CDT, Duration: 1 doses or times, Stop date: 10/05/16 11:23:00 CDT Notes: WASTE: F/P - Sink; E - Municipal Trash Bin Start Date: 10/05/16 Stop Date: 10/05/16 Status: CompletedmetFORMIN PO, 0 Refill(s) Start Date: 10/06/16 Status: Orderedmethadone 5 mg, 1 tab, Route: PO, Drug form: TAB, Q8H, Dosing Weight 109.091, kg, Priority : NOW, Start date: 10/05/16 9:34:00 CDT, Duration: 30 day, Stop date: 11/04/16 8 :00:00 CDT Notes: (Same as: Dolophine) Start Date: 10/05/16 Stop Date: 10/06/16 Status: Discontinuedmorphine Sulfate 4 mg, Route: IVP, ONCE, Dosing Weight 106.818, kg, Priority: STAT, Start date: 10/04/16 22:52:00 CDT, Stop date: 10/04/16 22:52:00 CDT Start Date: 10/04/16 Stop Date: 10/04/16 Status: CompletedOmnipaque 350mg/ml 120 mL, Route: IVP, Drug Form: SOLN, Dosing Weight 106.818, kg, ONCALL, STAT, Start date: 10/05/16 0:07:00 CDT, Duration: 1 doses or times, Dose=2.2ml/kg, Max pnfj=435ha -- "To be infused by RadiologyStaff ONLY" Start Date: 10/05/16 Stop Date: 10/05/16 Status: CompletedoxyCODONE 5 mg oral tablet 5 mg, 1 tab, Route: PO, Drug form: TAB, Q4H, Dosing Weight 109.091, kg, PRN Pain Score 6-10, Start date: 10/05/16 7:36:00 CDT, Duration: 30 day, Stop date: 11/04/16 7:35:00 CDT Notes: (Same as: Roxicodone) Start Date: 10/05/16 Stop Date: 10/06/16 Status: Discontinuedpneumococcal 23-valent vaccine 0.5 mL, Route: IM, Drug Form: INJ, Daily, Start date: 10/05/16 9:00:00 CDT, Duration: 1 doses or times, Stop date: 10/05/16 9:00:00 CDT Notes: (Same as: Pneumovax 23) Refrigerate Start Date: 10/05/16 Stop Date: 10/05/16 Status: Completedremove patch 1 patch, Route: TOP, Bedtime, Drug form: ERFILM, Start date: 10/05/16 21:00:00 CDT, Duration: 30 day, Stop date: 11/03/16 21:00:00 CDT Notes: Remove patch 12 hours after application each day. Start Date: 10/05/16 Stop Date: 10/06/16 Status: DiscontinuedSaline Flush 0.9% 10 mL, Route: IVP, Drug Form: INJ, Dosing Weight 106.818, kg, PRN, PRN Line Flush, Start date: 10/04/16 20:34:00 CDT, Duration: 30 day, Stop date: 11/03/16 20:33:00 CDT Notes: (Same as: BD Posiflush) Start Date: 10/04/16 Stop Date: 10/06/16 Status: Discontinuedsenna 8.6 mg, 1 tab, Route: PO, Drug Form: TAB, Dosing Weight 109.091, kg, Q12H, Start date: 10/05/16 9:00:00 CDT, Stop date: 11/03/16 21:00:00 CDT Notes: (Same as: Senokot) Start Date: 10/05/16 Stop Date: 10/06/16 Status: Discontinuedtramadol 50 mg oral tablet 100 mg, 2 tab, Route: PO, Drug form: TAB, Q6H, Dosing Weight 106.818, kg, Start date: 10/05/16 3:16:00 CDT, Duration: 30 day, Stop date: 11/04/16 6:00:00 CDT Notes: Not to exceed 400mg/day. (Same As: Ultram) Start Date: 10/05/16 Stop Date: 10/06/16 Status: Discontinuedtramadol 50 mg oral tablet 100 mg=2 tab, PO, Q6H, # 60 tab, 0 Refill(s) Start Date: 10/06/16 Stop Date: 10/20/16 Status: OrderedVicoprofen 7.5 mg-200 mg oral tablet 1 tab, Route: PO, Drug Form: TAB, Dosing Weight 109.091, kg, Q4H, PRN Pain Score 6-10, Start date: 10/06/16 13:07:00 CDT, Duration: 30 day, Stop date: 05/14 13:06:00 CDT Notes: (Same as: Vicoprofen) Start Date: 10/06/16 Stop Date: 10/06/16 Status: DiscontinuedVicoprofen 7.5 mg-200 mg oral tablet 1 tab, PO, Q4H, PRN Pain Score 6-10, # 80 tab, 0 Refill(s) Start Date: 10/06/16 Stop Date: 10/20/16 Status: OrderedZofran 4 mg, Route: IVP, Drug form: INJ, ONCE, Dosing Weight 106.818, kg, Priority: STAT, Start date: 10/04/16 22:52:00 CDT, Stop date: 10/04/16 22:52:00 CDT Start Date: 10/04/16 Stop Date: 10/04/16 Status: Completed Results BLOOD BANK RESULTS Most recent to oldest [Reference Range]: 1 2 3 ABO/Rh A NEG *Unknown* (10/04/16 8:58 PM) Antibody Scrn Negative (10/04/16 8:58 PM) ELECTROLYTES Most recent to oldest 1 2 3 [Reference Range]: Sodium Lvl [135-145 mEq/L] 126 mEq/L 128 mEq/L 131 mEq/L *LOW* *LOW* *LOW* (10/06/16 4:09 AM) (10/05/16 8:00 AM) (10/04/16 9:00 PM) Potassium Lvl [3.5-5.1 mEq/L] 4.0 mEq/L 4.4 mEq/L 5.1 mEq/L (10/06/16 4:09 AM) (10/05/16 8:00 AM) (10/04/16 9:00 PM) Chloride Lvl [95-109 mEq/L] 92 mEq/L 93 mEq/L 97 mEq/L *LOW* *LOW* (10/04/16 9:00 PM) (10/06/16 4:09 AM) (10/05/16 8:00 AM) CO2 [24-32 mEq/L] 24 mEq/L 25 mEq/L 22 mEq/L (10/06/16 4:09 AM) (10/05/16 8:00 AM) *LOW* (10/04/16 9:00 PM) AGAP [10.0-20.0 mEq/L] 14.0 mEq/L 14.4 mEq/L 17.1 mEq/L (10/06/16 4:09 AM) (10/05/16 8:00 AM) (10/04/16 9:00 PM) CHEM PANEL Most recent to oldest 1 2 3 [Reference Range]: Creatinine Lvl [0.50-1.40 1.37 mg/dL 0.81 mg/dL 0.92 mg/dL mg/dL] (10/06/16 4:09 AM) (10/05/16 8:00 AM) (10/04/16 9:00 PM) eGFR 58 mL/min/1.73m2 1 101 mL/min/1.73m2 2 95 mL/min/1.73m2 3 *NA* *NA* *NA* (10/06/16 4:09 AM) (10/05/16 8:00 AM) (10/04/16 9:00 PM) BUN [7-22 mg/dL] 16 mg/dL 8 mg/dL 9 mg/dL (10/06/16 4:09 AM) (10/05/16 8:00 AM) (10/04/16 9:00 PM) Glucose Lvl [70-99 mg/dL] 204 mg/dL 204 mg/dL 206 mg/dL *HI* *HI* *HI* (10/06/16 4:09 AM) (10/05/16 8:00 AM) (10/04/16 9:00 PM) Calcium Lvl [8.5-10.5 8.7 mg/dL 8.6 mg/dL 8.5 mg/dL mg/dL] (10/06/16 4:09 AM) (10/05/16 8:00 AM) (10/04/16 9:00 PM) Phosphorus [2.5-4.5 mg/dL] 4.0 mg/dL 3.0 mg/dL (10/06/16 4:09 AM) (10/05/16 8:00 AM) Magnesium Lvl [1.8-2.4 2.5 mg/dL 1.7 mg/dL mg/dL] *HI* *LOW* (10/06/16 4:09 AM) (10/05/16 8:00 AM) Lactic Acid Lvl [0.5-2.2 1.6 mMol/L mMol/L] (10/04/16 9:00 PM) 1Result Comment: The eGFR is calculated [...] eGFR should be multiplied by the estimated BMI.SPECIAL CHEMISTRY Most recent to oldest [Reference Range]: 1 2 3 Hgb A1C [<=5.6 %] 9.0 % *HI* (10/06/16 4:09 AM) DRUG SCREEN Most recent to oldest [Reference Range]: 1 2 3 U Amph Scr [Negative] Negative *NA* (10/05/16 1:26 AM) U Mitzy Scr [Negative] Negative *NA* (10/05/16 1:26 AM) U Benzodia Scr [Negative] Negative *NA* (10/05/16 1:26 AM) U Cocaine Scr [Negative] Negative *NA* (10/05/16 1:26 AM) U Opiate Scr [Negative] Positive *ABN* (10/05/16 1:26 AM) U Phencyc Scr [Negative] Negative *NA* (10/05/16 1:26 AM) U Cannab Scr [Negative] Negative *NA* (10/05/16 1:26 AM) UDS Note See Note (10/05/16 1:26 AM) TOXICOLOGY Most recent to oldest [Reference Range]: 1 2 3 Etoh (%) <0.003 % (10/04/16 9:00 PM) Ethanol Lvl <3.0 mg/dL (10/04/16 9:00 PM) URINE AND STOOL Most recent to oldest [Reference Range]: 1 2 3 UA Turbidity [Clear] Clear (10/05/16 1:21 AM) UA Color [Yellow] Yellow *NA* (10/05/16 1:21 AM) UA pH [5.0-8.0] 6.0 (10/05/16 1:21 AM) UA Spec Grav [<=1.030] 1.010 (10/05/16 1:21 AM) UA Glucose [Negative mg/dL] 500 mg/dL *ABN* (10/05/16 1:21 AM) UA Blood [Negative] Trace *ABN* (10/05/16 1:21 AM) UA Ketones [Negative mg/dL] 15 mg/dL *ABN* (10/05/16 1:21 AM) UA Protein [Negative] Negative (10/05/16 1:21 AM) UA Urobilinogen [0.1-1.0 EU/dL] 0.2 EU/dL (10/05/16 1:21 AM) UA Bili [Negative] Negative *NA* (10/05/16 1:21 AM) UA Leuk Est [Negative] Negative (10/05/16 1:21 AM) UA Nitrite [Negative] Negative (10/05/16 1:21 AM) UA WBC [None Seen] None Seen (10/05/16 1:21 AM) UA RBC [0-2 /HPF] 0-2 /HPF (10/05/16 1:21 AM) UA Sq Epi [Few /LPF] Occasional /LPF (10/05/16 1:21 AM) HEMATOLOGY Most recent to oldest 1 2 3 [Reference Range]: WBC [3.7-10.4 K/CMM] 7.0 K/CMM 8.1 K/CMM 13.0 K/CMM (10/06/16 4:09 AM) (10/05/16 8:00 AM) *HI* (10/04/16 9:00 PM) RBC [4.70-6.10 M/CMM] 3.92 M/CMM 4.24 M/CMM 4.31 M/CMM *LOW* *LOW* *LOW* (10/06/16 4:09 AM) (10/05/16 8:00 AM) (10/04/16 9:00 PM) Hgb [14.0-18.0 g/dL] 13.1 g/dL 14.0 g/dL 14.2 g/dL *LOW* (10/05/16 8:00 AM) (10/04/16 9:00 PM) (10/06/16 4:09 AM) Hct [42.0-54.0 %] 37.3 % 39.5 % 40.1 % *LOW* *LOW* *LOW* (10/06/16 4:09 AM) (10/05/16 8:00 AM) (10/04/16 9:00 PM) MCV [80.0-94.0 fL] 95.2 fL 93.0 fL 93.0 fL *HI* (10/05/16 8:00 AM) (10/04/16 9:00 PM) (10/06/16 4:09 AM) MCH [27.0-31.0 pg] 33.5 pg 32.9 pg 33.0 pg *HI* *HI* *HI* (10/06/16 4:09 AM) (10/05/16 8:00 AM) (10/04/16 9:00 PM) MCHC [32.0-36.0 g/dL] 35.2 g/dL 35.4 g/dL 35.4 g/dL (10/06/16 4:09 AM) (10/05/16 8:00 AM) (10/04/16 9:00 PM) RDW [11.5-14.5 %] 13.0 % 13.0 % 13.1 % (10/06/16 4:09 AM) (10/05/16 8:00 AM) (10/04/16 9:00 PM) Platelet [133-450 K/CMM] 254 K/CMM 278 K/CMM 270 K/CMM (10/06/16 4:09 AM) (10/05/16 8:00 AM) (10/04/16 9:00 PM) MPV [7.4-10.4 fL] 7.3 fL 7.3 fL 7.2 fL *LOW* *LOW* *LOW* (10/06/16 4:09 AM) (10/05/16 8:00 AM) (10/04/16 9:00 PM) Segs [45.0-75.0 %] 65.8 % 74.0 % 80.4 % (10/06/16 4:09 AM) (10/05/16 8:00 AM) *HI* (10/04/16 9:00 PM) Lymphocytes [20.0-40.0 %] 20.5 % 13.3 % 11.5 % (10/06/16 4:09 AM) *LOW* *LOW* (10/05/16 8:00 AM) (10/04/16 9:00 PM) Monocytes [2.0-12.0 %] 10.1 % 12.1 % 7.2 % (10/06/16 4:09 AM) *HI* (10/04/16 9:00 PM) (10/05/16 8:00 AM) Eosinophils [0.0-4.0 %] 3.0 % 0.3 % 0.3 % (10/06/16 4:09 AM) (10/05/16 8:00 AM) (10/04/16 9:00 PM) Basophils [0.0-1.0 %] 0.6 % 0.3 % 0.6 % (10/06/16 4:09 AM) (10/05/16 8:00 AM) (10/04/16 9:00 PM) Segs-Bands # [1.5-8.1 K/CMM] 4.6 K/CMM 6.0 K/CMM 10.5 K/CMM (10/06/16 4:09 AM) (10/05/16 8:00 AM) *HI* (10/04/16 9:00 PM) Lymphocytes # [1.0-5.5 K/CMM] 1.4 K/CMM 1.1 K/CMM 1.5 K/CMM (10/06/16 4:09 AM) (10/05/16 8:00 AM) (10/04/16 9:00 PM) Monocytes # [0.0-0.8 K/CMM] 0.7 K/CMM 1.0 K/CMM 0.9 K/CMM (10/06/16 4:09 AM) *HI* *HI* (10/05/16 8:00 AM) (10/04/16 9:00 PM) Eosinophils # [0.0-0.5 K/CMM] 0.2 K/CMM (10/06/16 4:09 AM) Basophils # [0.0-0.2 K/CMM] 0.1 K/CMM (10/04/16 9:00 PM) ACT (TEG) Rapid [86-118 105 seconds seconds] (10/04/16 9:00 PM) [place] Rapid 0.5 minutes *NA* (10/04/16 9:00 PM) R-time Rapid [0.4-0.7 0.6 minutes minutes] (10/04/16 9:00 PM) K-time Rapid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
--- OUTSIDE RECORDS SUMMARY | 2018-01-31 08:11 | XMS REPORT ---
:1965 Author Organization [facility] Address [address] [place] [address] [address] [place] [address] Care Team Providers Name Role Phone FRANSICO MORENO Unavailable Unavailable Problems This patient has no known problems. Allergies, Adverse Reactions, Alerts This patient has no known allergies or adverse reactions. Medications This patient has no known medications. Results Test Description Test Time Test Comments Text Results Atomic Results Result Comments POCT-GLUCOSE METER 2017-07-05 12:37:00 Test Item Value Reference Range Comments POC-GLUCOSE METER (BEAKER) (test 217 mg/dL 70-110 TESTED AT [address] aqmm=4973) [place] [address] [id number] 08:15:00 Test Item Value Reference Range Comments MAGNESIUM (BEAKER) (test hskz=845) 1.7 mg/dL 1.6-2.6 POCT-GLUCOSE [id number] 07:48:00 Test Item Value Reference Range Comments POC-GLUCOSE METER (BEAKER) 148 mg/dL 70-110 TESTED AT [address] (test njss=3315) [place] [address] POCT-GLUCOSE [id number] 21:42:00 Test Item Value Reference Range Comments POC-GLUCOSE METER (BEAKER) 126 mg/dL 70-110 TESTED AT [address] (test doxm=3414) [place] [address] POCT-GLUCOSE [id number] 08:50:00 Test Item Value Reference Range Comments POC-GLUCOSE METER (BEAKER) 165 mg/dL 70-110 TESTED AT [address] (test uhmn=8528) [place] [address] [id number] 06:42:00 Test Item Value Reference Range Comments MAGNESIUM (BEAKER) (test odcl=591) 1.6 mg/dL 1.6-2.6 POCT-GLUCOSE [id number] 21:31:00 Test Item Value Reference Range Comments POC-GLUCOSE METER (BEAKER) 120 mg/dL 70-110 TESTED AT [address] (test ujjo=5427) [facility] [address] POCT-GLUCOSE [id number] 17:04:00 Test Item Value Reference Range Comments POC-GLUCOSE METER (BEAKER) 201 mg/dL 70-110 TESTED AT [address] (test spfb=0810) [facility] [address] POCT-GLUCOSE [id number] 13:25:00 Test Item Value Reference Range Comments POC-GLUCOSE METER (BEAKER) 217 mg/dL 70-110 TESTED AT [address] (test gkio=6461) [facility] [address] POCT-GLUCOSE [id number] 12:11:00 Test Item Value Reference Range Comments POC-GLUCOSE METER (BEAKER) 263 mg/dL 70-110 TESTED AT [address] (test kuvz=3507) [place] [id number] CBC W/PLT COUNT & AUTO [id number] 10:58:00 Test Item Value Reference Range Comments WHITE BLOOD CELL COUNT (BEAKER) (test ldok=494) 7.3 K/ L 3.5-10.5 RED BLOOD CELL COUNT (BEAKER) (test ndmh=286) 2.83 M/ L 4.63-6.08 HEMOGLOBIN (BEAKER) (test hhbd=673) 9.3 GM/DL 13.7-17.5 HEMATOCRIT (BEAKER) (test wstz=729) 27.3 % 40.1-51.0 MEAN CORPUSCULAR VOLUME (BEAKER) (test cvwa=044) 96.5 fL 79.0-92.2 MEAN CORPUSCULAR HEMOGLOBIN (BEAKER) (test 32.9 pg 25.7-32.2 gass=400) MEAN CORPUSCULAR HEMOGLOBIN CONC (BEAKER) (test 34.1 GM/DL 32.3-36.5 lgvs=354) RED CELL DISTRIBUTION WIDTH (BEAKER) (test 12.1 % 11.6-14.4 zzyn=651) PLATELET COUNT (BEAKER) (test lmmx=444) 202 K/CU MM 150-450 MEAN PLATELET VOLUME (BEAKER) (test cdee=933) 9.4 fL 9.4-12.4 NUCLEATED RED BLOOD CELLS (BEAKER) (test 0 /100 WBC 0-0 euiu=475) NEUTROPHILS RELATIVE PERCENT (BEAKER) (test 60 % zsab=929) LYMPHOCYTES RELATIVE PERCENT (BEAKER) (test 24 % zkbz=489) MONOCYTES RELATIVE PERCENT (BEAKER) (test 11 % fkuo=040) EOSINOPHILS RELATIVE PERCENT (BEAKER) (test 3 % qrfv=248) BASOPHILS RELATIVE PERCENT (BEAKER) (test 1 % zrte=900) NEUTROPHILS ABSOLUTE COUNT (BEAKER) (test 4.37 K/ L 1.78-5.38 ngfn=930) LYMPHOCYTES ABSOLUTE COUNT (BEAKER) (test 1.77 K/ L 1.32-3.57 gncx=231) MONOCYTES ABSOLUTE COUNT (BEAKER) (test 0.83 K/ L 0.30-0.82 dqou=804) EOSINOPHILS ABSOLUTE COUNT (BEAKER) (test 0.20 K/ L 0.04-0.54 lict=878) BASOPHILS ABSOLUTE COUNT (BEAKER) (test 0.04 K/ L 0.01-0.08 ghvq=098) IMMATURE GRANULOCYTES-RELATIVE PERCENT (BEAKER) 1 % 0-1 (test umuo=6360) [id number] 06:22:00 Test Item Value Reference Range Comments MAGNESIUM (BEAKER) (test klyi=594) 1.5 mg/dL 1.6-2.6 BASIC METABOLIC [id number] 06:22:00 Test Item Value Reference Range Comments SODIUM (BEAKER) (test 136 meq/L 136-145 bmkc=685) POTASSIUM (BEAKER) (test 3.8 meq/L 3.5-5.1 nusx=907) CHLORIDE (BEAKER) (test 102 meq/L 98-107 wmvq=093) CO2 (BEAKER) (test 26 meq/L 22-29 zyye=029) BLOOD UREA NITROGEN 10 mg/dL 7-21 (BEAKER) (test cume=329) CREATININE (BEAKER) (test 0.82 mg/dL 0.57-1.25 lxzd=440) GLUCOSE RANDOM (BEAKER) 128 mg/dL 70-105 (test udie=059) CALCIUM (BEAKER) (test 8.9 mg/dL 8.4-10.2 gqnk=442) EGFR (BEAKER) (test 98 mL/min/1.73 sq m ESTIMATED GFR IS NOT xqao=3513) ACCURATE CREATININE CLEARANCE IN PREDICTING GLOMERULAR FILTRATION RATE. ESTIMATED GFR IS NOT APPLICABLE FOR DIALYSIS PATIENTS. POCT-GLUCOSE [id number] 00:24:00 Test Item Value Reference Range Comments POC-GLUCOSE METER (BEAKER) 171 mg/dL 70-110 TESTED AT [address] (test ubjc=3989) [place] [id number] POCT-GLUCOSE [id number] 17:06:00 Test Item Value Reference Range Comments POC-GLUCOSE METER (BEAKER) 164 mg/dL 70-110 TESTED AT [address] (test yivs=0544) [place] [id number] POCT-GLUCOSE [id number] 13:05:00 Test Item Value Reference Range Comments POC-GLUCOSE METER (BEAKER) 258 mg/dL 70-110 TESTED AT [address] (test oieo=6687) [place] [id number] CBC W/PLT COUNT & AUTO [id number] 12:24:00 Test Item Value Reference Range Comments WHITE BLOOD CELL COUNT (BEAKER) (test kjvc=419) 10.4 K/ L 3.5-10.5 RED BLOOD CELL COUNT (BEAKER) (test hebj=449) 3.14 M/ L 4.63-6.08 HEMOGLOBIN (BEAKER) (test xepd=739) 10.3 GM/DL 13.7-17.5 HEMATOCRIT (BEAKER) (test kabi=661) 30.4 % 40.1-51.0 MEAN CORPUSCULAR VOLUME (BEAKER) (test bezl=673) 96.8 fL 79.0-92.2 MEAN CORPUSCULAR HEMOGLOBIN (BEAKER) (test 32.8 pg 25.7-32.2 nbgz=949) MEAN CORPUSCULAR HEMOGLOBIN CONC (BEAKER) (test 33.9 GM/DL 32.3-36.5 yxkz=027) RED CELL DISTRIBUTION WIDTH (BEAKER) (test 12.4 % 11.6-14.4 gxbm=920) PLATELET COUNT (BEAKER) (test amkh=352) 195 K/CU MM 150-450 MEAN PLATELET VOLUME (BEAKER) (test xxod=268) 9.4 fL 9.4-12.4 NUCLEATED RED BLOOD CELLS (BEAKER) (test 0 /100 WBC 0-0 qkry=376) NEUTROPHILS RELATIVE PERCENT (BEAKER) (test 73 % lzel=278) LYMPHOCYTES RELATIVE PERCENT (BEAKER) (test 12 % nenw=157) MONOCYTES RELATIVE PERCENT (BEAKER) (test 12 % mehp=499) EOSINOPHILS RELATIVE PERCENT (BEAKER) (test 2 % wlbn=162) BASOPHILS RELATIVE PERCENT (BEAKER) (test 0 % ulge=304) NEUTROPHILS ABSOLUTE COUNT (BEAKER) (test 7.53 K/ L 1.78-5.38 woqb=552) LYMPHOCYTES ABSOLUTE COUNT (BEAKER) (test 1.24 K/ L 1.32-3.57 atbs=532) MONOCYTES ABSOLUTE COUNT (BEAKER) (test 1.25 K/ L 0.30-0.82 wrrf=638) EOSINOPHILS ABSOLUTE COUNT (BEAKER) (test 0.24 K/ L 0.04-0.54 bsbo=212) BASOPHILS ABSOLUTE COUNT (BEAKER) (test 0.03 K/ L 0.01-0.08 ezaw=956) IMMATURE GRANULOCYTES-RELATIVE PERCENT (BEAKER) 1 % 0-1 (test wtaf=4127) HEMOGLOBIN [id number] 09:33:00 Test Item Value Reference Range Comments HEMOGLOBIN A1C (BEAKER) (test lkrv=084) 7.0 % 4.3-6.1 POCT-GLUCOSE [id number] 08:36:00 Test Item Value Reference Range Comments POC-GLUCOSE METER (BEAKER) 184 mg/dL 70-110 TESTED AT [address] (test koam=2747) [facility] [address] BASIC METABOLIC [id number] 06:11:00 Test Item Value Reference Range Comments SODIUM (BEAKER) (test 133 meq/L 136-145 dkin=842) POTASSIUM (BEAKER) (test 4.7 meq/L 3.5-5.1 pjhe=544) CHLORIDE (BEAKER) (test 101 meq/L 98-107 ctax=050) CO2 (BEAKER) (test 26 meq/L 22-29 hrfd=164) BLOOD UREA NITROGEN 8 mg/dL 7-21 (BEAKER) (test rftm=380) CREATININE (BEAKER) (test 0.84 mg/dL 0.57-1.25 tfev=645) GLUCOSE RANDOM (BEAKER) 159 mg/dL 70-105 (test mdvi=893) CALCIUM (BEAKER) (test 8.8 mg/dL 8.4-10.2 rrbt=985) EGFR (BEAKER) (test 95 mL/min/1.73 sq m ESTIMATED GFR IS NOT jwuo=7597) ACCURATE CREATININE CLEARANCE IN PREDICTING GLOMERULAR FILTRATION RATE. ESTIMATED GFR IS NOT APPLICABLE FOR DIALYSIS PATIENTS. RAD, CHEST, 1 VIEW, NON [id number] 06:01:00Reason for exam:->pulmonary congestionShould this be performed at the bedside?->YesFINAL REPORT RAD, CHEST, 1 VIEW, NON DEPT INDICATION: pulmonary congestion COMPARISON: Prior day's exam FINDINGS: Portable frontal view of the chest. IMPRESSION: Support Lines: Right IJ sheath is present. The left thoracostomy tube has been removed. Lungs and pleura: Coarsened interstitial markings are noted bilaterally. There is multifocal subsegmental atelectasis. No visible residual left pneumothorax.Heart and mediastinum: Stable contours. Stable surgical changes.Additional findings: None. Signed: JR Ernie, Mariano Bob Verified Date/Time: 07/02/2017 06:01:17 Reading Location: [place] [address]Y CT Body Reading Room POCT-GLUCOSE [id number] 21:30:00 Test Item Value Reference Range Comments POC-GLUCOSE METER (BEAKER) 231 mg/dL 70-110 TESTED AT [address] (test yzku=8450) [facility] [address] POCT-GLUCOSE [id number] 17:10:00 Test Item Value Reference Range Comments POC-GLUCOSE METER (BEAKER) 158 mg/dL 70-110 TESTED AT [address] (test fohk=6243) [facility] [address] POCT-GLUCOSE [id number] 14:52:00 Test Item Value Reference Range Comments POC-GLUCOSE METER (BEAKER) 210 mg/dL 70-110 TESTED AT [address] (test ijxa=6130) [facility] [address] [id number] 06:25:00 Test Item Value Reference Range Comments PHOSPHORUS (BEAKER) (test ajxj=823) 3.7 mg/dL 2.3-4.7 [id number] 06:25:00 Test Item Value Reference Range Comments MAGNESIUM (BEAKER) (test vyby=784) 1.7 mg/dL 1.6-2.6 BASIC METABOLIC [id number] 06:25:00 Test Item Value Reference Range Comments SODIUM (BEAKER) (test 134 meq/L 136-145 dbxr=476) POTASSIUM (BEAKER) (test 4.2 meq/L 3.5-5.1 hzvy=090) CHLORIDE (BEAKER) (test 106 meq/L 98-107 tfkv=306) CO2 (BEAKER) (test 20 meq/L 22-29 cxvy=275) BLOOD UREA NITROGEN 9 mg/dL 7-21 (BEAKER) (test jqmz=487) CREATININE (BEAKER) (test 0.80 mg/dL 0.57-1.25 xiju=086) GLUCOSE RANDOM (BEAKER) 124 mg/dL 70-105 (test psgn=905) CALCIUM (BEAKER) (test 8.5 mg/dL 8.4-10.2 coxl=271) EGFR (BEAKER) (test 101 mL/min/1.73 sq m ESTIMATED GFR IS NOT nnsl=8233) ACCURATE CREATININE CLEARANCE IN PREDICTING GLOMERULAR FILTRATION RATE. ESTIMATED GFR IS NOT APPLICABLE FOR DIALYSIS PATIENTS. CBC (HEMOGRAM ONLY)2017-07-01 05:49:00 Test Item Value Reference Range Comments WHITE BLOOD CELL COUNT (BEAKER) (test upka=380) 9.3 K/ L 3.5-10.5 RED BLOOD CELL COUNT (BEAKER) (test bcse=012) 3.25 M/ L 4.63-6.08 HEMOGLOBIN (BEAKER) (test pfnn=076) 10.7 GM/DL 13.7-17.5 HEMATOCRIT (BEAKER) (test srfz=715) 31.3 % 40.1-51.0 MEAN CORPUSCULAR VOLUME (BEAKER) (test fjzz=181) 96.3 fL 79.0-92.2 MEAN CORPUSCULAR HEMOGLOBIN (BEAKER) (test 32.9 pg 25.7-32.2 ykpx=403) MEAN CORPUSCULAR HEMOGLOBIN CONC (BEAKER) (test 34.2 GM/DL 32.3-36.5 znfg=869) RED CELL DISTRIBUTION WIDTH (BEAKER) (test 12.2 % 11.6-14.4 znij=337) PLATELET COUNT (BEAKER) (test nwgm=874) 201 K/CU MM 150-450 MEAN PLATELET VOLUME (BEAKER) (test jwql=835) 9.3 fL 9.4-12.4 NUCLEATED RED BLOOD CELLS (BEAKER) (test 0 /100 WBC 0-0 fpbm=060) [id number] 05:31:00 Test Item Value Reference Range Comments ACTIVATED CLOTTING TIME 109 sec TESTED AT [place] [address] [address] (BEAKER) (test ppcw=576) [place] [address] [id number] 05:31:00 Test Item Value Reference Range Comments ACTIVATED CLOTTING TIME 455 sec TESTED AT [address] (BEAKER) (test hlht=518) [place] [address] [id number] 05:31:00 Test Item Value Reference Range Comments ACTIVATED CLOTTING TIME 400 sec TESTED AT [address] (BEAKER) (test sakk=537) [place] [address] [id number] 05:31:00 Test Item Value Reference Range Comments ACTIVATED CLOTTING TIME 500 sec TESTED AT [address] (BEAKER) (test ectd=216) [place] [id number] OXYGEN SATURATION, [id number] 05:30:00 Test Item Value Reference Range Comments O2 SATURATION (MEASURED) (BEAKER) (test ugbl=2718) 66.9 % CALCIUM, [id number] 05:30:00 Test Item Value Reference Range Comments CALCIUM IONIZED (BEAKER) (test osgk=082) 1.15 mmol/L 1.12-1.27 PH, BLOOD (BEAKER) (test drey=3087) 7.34 RAD, CHEST, 1 VIEW, NON [id number] 04:56:00while patient is intubated or has chest tubes.Reason for exam:->postopShould this be performed atthe bedside?->YesFINAL REPORT RAD, CHEST, 1 VIEW, NON DEPT INDICATION: postop COMPARISON: Prior day's exam FINDINGS: Portable frontal view of the chest. IMPRESSION: Support Lines: Endotrachealand nasogastric tubes been removed. Remaining support hardware is stable. Lungs and pleura: Improving scattered subsegmental atelectasis. No new airspace disease or effusion. No pneumothorax.Heart and mediastinum: Stable contours. Stable surgical changes.Additional findings: None. Signed: JR Klein Robert MDReport Verified Date/Time: 07/01/2017 04:56:29 Reading Location: [address] BodyReading Room POCT-GLUCOSE [id number] 01:10:00 Test Item Value Reference Range Comments POC-GLUCOSE METER (BEAKER) 138 mg/dL 70-110 TESTED AT [address] (test lqwg=9601) [facility] [address] POCT-GLUCOSE [id number] 01:10:00 Test Item Value Reference Range Comments POC-GLUCOSE METER (BEAKER) 146 mg/dL 70-110 TESTED AT [address] (test pilf=1591) [place] [id number] POCT-GLUCOSE [id number] 18:23:00 Test Item Value Reference Range Comments POC-GLUCOSE METER (BEAKER) 157 mg/dL 70-110 TESTED AT [address] (test oqgp=8867) [place] [address] POCT-GLUCOSE [id number] 18:23:00 Test Item Value Reference Range Comments POC-GLUCOSE METER (BEAKER) 168 mg/dL 70-110 TESTED AT [address] (test gzit=3361) [place] [address] POCT-GLUCOSE [id number] 16:24:00 Test Item Value Reference Range Comments POC-GLUCOSE METER (BEAKER) 160 mg/dL 70-110 TESTED AT [address] (test qdgp=4845) [place] [address] [id number] 16:05:00 Test Item Value Reference Range Comments MAGNESIUM (BEAKER) (test mpvp=205) 2.0 mg/dL 1.6-2.6 BLOOD GAS, [id number] 14:33:00 Test Item Value Reference Range Comments PH ARTERIAL (BEAKER) (test oiwt=067) 7.36 7.35-7.45 PCO2 ARTERIAL (BEAKER) (test ibte=993) 40 mmHg 35-45 PO2 ARTERIAL (BEAKER) (test ynjh=702) 112 mmHg 80-90 O2 SATURATION ARTERIAL (BEAKER) (test mkkq=147) 98.1 % 96.0-97.0 HCO3 ARTERIAL (BEAKER) (test mncj=837) 23 mmol/L 21-29 BASE EXCESS ARTERIAL (BEAKER) (test esyk=560) -2.9 mmol/L -2.0-3.0 PATIENT TEMPERATURE (BEAKER) (test dsgw=6850) 36.3 C FIO2 (BEAKER) (test rpjd=5715) 60.0 % POCT-GLUCOSE [id number] 14:29:00 Test Item Value Reference Range Comments POC-GLUCOSE METER (BEAKER) 173 mg/dL 70-110 TESTED AT [address] (test snjj=1159) [place] [address] POCT-GLUCOSE [id number] 13:41:00 Test Item Value Reference Range Comments POC-GLUCOSE METER (BEAKER) 186 mg/dL 70-110 TESTED AT [address] (test drcd=4760) [place] [address] POCT-GLUCOSE [id number] 12:39:00 Test Item Value Reference Range Comments POC-GLUCOSE METER (BEAKER) 171 mg/dL 70-110 TESTED AT [address] (test igsd=4902) [place] [address] [id number] 11:42:00 Test Item Value Reference Range Comments PARTIAL THROMBOPLASTIN TIME (BEAKER) (test 28.1 seconds 22.5-36.0 vxdl=672) [id number] 11:42:00 Test Item Value Reference Range Comments FIBRINOGEN LEVEL (BEAKER) (test dfzc=980) 309 mg/dl 225-434 PROTHROMBIN [id number] 11:41:00 Test Item Value Reference Range Comments PROTIME (BEAKER) (test alor=334) 16.1 seconds 11.7-14.7 INR (BEAKER) (test jlzz=094) 1.3 <=5.9 RECOMMENDED COUMADIN/WARFARIN INR THERAPY RANGESSTANDARD DOSE: 2.0 - 3.0 Includes: PROPHYLAXIS forvenous thrombosis, systemic embolization; TREATMENT for venous thrombosis and/or pulmonary embolus.HIGH RISK: Target INR is 2.5-3.5 for patients with mechanical heart valves.RAD, CHEST, 1 VIEW, NON [id number] 11:38:00Reason for exam:->postopShould this be performed at the bedside?-& gt;YesFINAL REPORT Two frontal chest images compared to June 30, 2017 Discussion:Postoperative changes are noted with support tubes and right IJ line. There is mild interstitial congestion and atelectasis. No effusion or pneumothorax. Signed: Bruce Wahl Verified Date/Time: 08/2017 11:38:48 Reading Location: [facility] Radiology Reading Room [id number] 11:29:00 Test Item Value Reference Range Comments MAGNESIUM (BEAKER) (test 2.7 mg/dL 1.6-2.6 Specimen slightly hemolyzed hxat=731) [id number] 11:29:00 Test Item Value Reference Range Comments PHOSPHORUS (BEAKER) (test 3.5 mg/dL 2.3-4.7 Specimen slightly hemolyzed xpna=503) [id number] 11:29:00 Test Item Value Reference Range Comments POTASSIUM (BEAKER) (test 5.0 meq/L 3.5-5.1 Specimen slightly hemolyzed aruz=674) [id number] 11:29:00 Test Item Value Reference Range Comments GLUCOSE RANDOM (BEAKER) (test vtol=079) 205 mg/dL 70-105 BASIC METABOLIC [id number] 11:29:00 Test Item Value Reference Range Comments SODIUM (BEAKER) (test 134 meq/L 136-145 zrqt=592) POTASSIUM (BEAKER) (test 5.0 meq/L 3.5-5.1 Specimen slightly wvhn=268) hemolyzed CHLORIDE (BEAKER) (test 105 meq/L 98-107 ztqi=877) CO2 (BEAKER) (test 24 meq/L 22-29 yuir=248) BLOOD UREA NITROGEN 12 mg/dL 7-21 (BEAKER) (test ncql=528) CREATININE (BEAKER) (test 0.90 mg/dL 0.57-1.25 Specimen slightly ktzz=351) hemolyzed GLUCOSE RANDOM (BEAKER) 205 mg/dL 70-105 (test abfu=195) CALCIUM (BEAKER) (test 8.6 mg/dL 8.4-10.2 sktf=840) EGFR (BEAKER) (test 88 mL/min/1.73 sq m ESTIMATED GFR IS NOT ggsq=7614) ACCURATE CREATININE CLEARANCE IN PREDICTING GLOMERULAR FILTRATION RATE. ESTIMATED GFR IS NOT APPLICABLE FOR DIALYSIS PATIENTS. LACTIC ACID, ARTERIAL, WHOLE [id number] 11:26:00 Test Item Value Reference Range Comments LACTATE BLOOD ARTERIAL (2) 0.9 mmol/L 0.5-2.2 Specimen slightly hemolyzed (BEAKER) (test zfyr=4688) Effective 10/30/2015: Units/Reference Range ChangeNew: 0.5-2.2 mmol/L Previous: 5 -20 mg/dLCBC (HEMOGRAM ONLY)2017-06-30 11:14:00 Test Item Value Reference Range Comments WHITE BLOOD CELL COUNT (BEAKER) (test edlr=064) 9.1 K/ L 3.5-10.5 RED BLOOD CELL COUNT (BEAKER) (test gjjy=611) 3.50 M/ L 4.63-6.08 HEMOGLOBIN (BEAKER) (test xxat=769) 11.7 GM/DL 13.7-17.5 HEMATOCRIT (BEAKER) (test vlxq=512) 33.2 % 40.1-51.0 MEAN CORPUSCULAR VOLUME (BEAKER) (test nfjd=290) 94.9 fL 79.0-92.2 MEAN CORPUSCULAR HEMOGLOBIN (BEAKER) (test 33.4 pg 25.7-32.2 wrat=877) MEAN CORPUSCULAR HEMOGLOBIN CONC (BEAKER) (test 35.2 GM/DL 32.3-36.5 htjz=265) RED CELL DISTRIBUTION WIDTH (BEAKER) (test 12.1 % 11.6-14.4 apyk=461) PLATELET COUNT (BEAKER) (test bnam=078) 143 K/CU MM 150-450 MEAN PLATELET VOLUME (BEAKER) (test gcft=999) 8.7 fL 9.4-12.4 NUCLEATED RED BLOOD CELLS (BEAKER) (test 0 /100 WBC 0-0 nvrh=329) CBC W/PLT COUNT & AUTO [id number] 11:14:00 Test Item Value Reference Range Comments WHITE BLOOD CELL COUNT (BEAKER) (test ovyz=328) 9.1 K/ L 3.5-10.5 RED BLOOD CELL COUNT (BEAKER) (test zdmu=954) 3.50 M/ L 4.63-6.08 HEMOGLOBIN (BEAKER) (test nzzw=653) 11.7 GM/DL 13.7-17.5 HEMATOCRIT (BEAKER) (test ptqz=340) 33.2 % 40.1-51.0 MEAN CORPUSCULAR VOLUME (BEAKER) (test cths=837) 94.9 fL 79.0-92.2 MEAN CORPUSCULAR HEMOGLOBIN (BEAKER) (test 33.4 pg 25.7-32.2 edoe=625) MEAN CORPUSCULAR HEMOGLOBIN CONC (BEAKER) (test 35.2 GM/DL 32.3-36.5 sxtc=970) RED CELL DISTRIBUTION WIDTH (BEAKER) (test 12.1 % 11.6-14.4 tkoq=176) PLATELET COUNT (BEAKER) (test vuss=325) 143 K/CU MM 150-450 MEAN PLATELET VOLUME (BEAKER) (test swfl=767) 8.7 fL 9.4-12.4 NUCLEATED RED BLOOD CELLS (BEAKER) (test 0 /100 WBC 0-0 ugwh=149) NEUTROPHILS RELATIVE PERCENT (BEAKER) (test 73 % pfxt=960) LYMPHOCYTES RELATIVE PERCENT (BEAKER) (test 17 % mojr=267) MONOCYTES RELATIVE PERCENT (BEAKER) (test 6 % vlrz=371) EOSINOPHILS RELATIVE PERCENT (BEAKER) (test 2 % nhjk=628) BASOPHILS RELATIVE PERCENT (BEAKER) (test 0 % amam=001) NEUTROPHILS ABSOLUTE COUNT (BEAKER) (test 6.62 K/ L 1.78-5.38 ldpe=023) LYMPHOCYTES ABSOLUTE COUNT (BEAKER) (test 1.57 K/ L 1.32-3.57 dgxd=573) MONOCYTES ABSOLUTE COUNT (BEAKER) (test 0.53 K/ L 0.30-0.82 tdby=423) EOSINOPHILS ABSOLUTE COUNT (BEAKER) (test 0.20 K/ L 0.04-0.54 hber=504) BASOPHILS ABSOLUTE COUNT (BEAKER) (test 0.03 K/ L 0.01-0.08 rdwq=390) IMMATURE GRANULOCYTES-RELATIVE PERCENT (BEAKER) 1 % 0-1 (test jxho=2014) GLUCOSE-STAT [id number] 11:12:00 Test Item Value Reference Range Comments GLUCOSE RANDOM (BEAKER) (test nefw=998) 196 mg/dL 70-110 SODIUM NA-STAT [id number] 11:12:00 Test Item Value Reference Range Comments SODIUM (BEAKER) (test yzum=403) 130 meq/L 135-148 HGB/HCT (H&H) - STAT [id number] 11:12:00 Test Item Value Reference Range Comments HEMOGLOBIN (BEAKER) (test wool=602) 12.6 g/dL 13.0-16.8 HEMATOCRIT (BEAKER) (test inzy=652) 37.0 % 40.0-50.0 CALCIUM, [id number] 11:11:00 Test Item Value Reference Range Comments CALCIUM IONIZED (BEAKER) (test raan=235) 1.08 mmol/L 1.12-1.27 PH, BLOOD (BEAKER) (test iubr=3997) 7.35 BLOOD GAS, [id number] 11:11:00 Test Item Value Reference Range Comments PH ARTERIAL (BEAKER) (test chug=988) 7.37 7.35-7.45 PCO2 ARTERIAL (BEAKER) (test cjfp=673) 41 mmHg 35-45 PO2 ARTERIAL (BEAKER) (test mimh=695) 149 mmHg 80-90 O2 SATURATION ARTERIAL (BEAKER) (test yfti=980) 98.9 % 96.0-97.0 HCO3 ARTERIAL (BEAKER) (test tiqg=370) 24 mmol/L 21-29 BASE EXCESS ARTERIAL (BEAKER) (test evxh=023) -2.0 mmol/L -2.0-3.0 PATIENT TEMPERATURE (BEAKER) (test axyj=9965) 35.2 C FIO2 (BEAKER) (test zicv=7439) 60.0 % POTASSIUM-STAT [id number] 11:09:00 Test Item Value Reference Range Comments POTASSIUM (BEAKER) (test kcss=403) 4.8 meq/L 3.6-5.5 OXYGEN SATURATION, [id number] 11:09:00 Test Item Value Reference Range Comments O2 SATURATION (MEASURED) (BEAKER) (test qsie=5294) 78.7 % PLATELET [id number] 10:51:00 Test Item Value Reference Range Comments PLATELET COUNT (BEAKER) (test tkkq=659) 145 K/CU MM 150-450 [id number] 10:08:00 Test Item Value Reference Range Comments FIBRINOGEN LEVEL (BEAKER) (test afbg=868) 324 mg/dl 225-434 [id number] 10:08:00 Test Item Value Reference Range Comments PARTIAL THROMBOPLASTIN TIME (BEAKER) (test 27.3 seconds 22.5-36.0 nije=000) PROTHROMBIN [id number] 10:07:00 Test Item Value Reference Range Comments PROTIME (BEAKER) (test okyi=355) 17.4 seconds 11.7-14.7 INR (BEAKER) (test mcgc=415) 1.4 <=5.9 RECOMMENDED COUMADIN/WARFARIN INR THERAPY RANGESSTANDARD DOSE: 2.0 - 3.0 Includes: PROPHYLAXIS forvenous thrombosis, systemic embolization; TREATMENT for venous thrombosis and/or pulmonary embolus.HIGH RISK: Target INR is 2.5-3.5 for patients with mechanical heart valves.BLOOD GAS, [id number] 09:55:00 Test Item Value Reference Range Comments PH ARTERIAL (BEAKER) (test cdsy=122) 7.33 7.35-7.45 PCO2 ARTERIAL (BEAKER) (test pwnl=045) 47 mmHg 35-45 PO2 ARTERIAL (BEAKER) (test swti=825) 285 mmHg 80-90 O2 SATURATION ARTERIAL (BEAKER) (test xfnn=650) 99.6 % 96.0-97.0 HCO3 ARTERIAL (BEAKER) (test sslc=486) 24 mmol/L 21-29 BASE EXCESS ARTERIAL (BEAKER) (test zdms=871) -2.4 mmol/L -2.0-3.0 PATIENT TEMPERATURE (BEAKER) (test tbma=7242) 36.8 C FIO2 (BEAKER) (test fegu=1637) 100.0 % GLUCOSE-STAT [id number] 09:55:00 Test Item Value Reference Range Comments GLUCOSE RANDOM (BEAKER) (test gdbn=322) 200 mg/dL 70-110 SODIUM NA-STAT [id number] 09:55:00 Test Item Value Reference Range Comments SODIUM (BEAKER) (test aykj=665) 130 meq/L 135-148 HGB/HCT (H&H) - STAT [id number] 09:55:00 Test Item Value Reference Range Comments HEMOGLOBIN (BEAKER) (test kxzy=013) 11.7 g/dL 13.0-16.8 HEMATOCRIT (BEAKER) (test eokw=255) 34.0 % 40.0-50.0 POTASSIUM-STAT [id number] 09:53:00 Test Item Value Reference Range Comments POTASSIUM (BEAKER) (test hizf=419) 5.3 meq/L 3.6-5.5 CALCIUM, [id number] 09:53:00 Test Item Value Reference Range Comments CALCIUM IONIZED (BEAKER) (test ryih=112) 1.15 mmol/L 1.12-1.27 PH, BLOOD (BEAKER) (test lxua=8094) 7.32 POTASSIUM-STAT [id number] 09:17:00 Test Item Value Reference Range Comments POTASSIUM (BEAKER) (test khfk=821) 6.2 meq/L 3.6-5.5 HGB/HCT (H&H) - STAT [id number] 09:15:00 Test Item Value Reference Range Comments HEMOGLOBIN (BEAKER) (test wstq=769) 11.3 g/dL 13.0-16.8 HEMATOCRIT (BEAKER) (test kkew=182) 33.0 % 40.0-50.0 BLOOD GAS, [id number] 09:14:00 Test Item Value Reference Range Comments PH ARTERIAL (BEAKER) (test zjxv=324) 7.37 7.35-7.45 PCO2 ARTERIAL (BEAKER) (test ttst=975) 42 mmHg 35-45 PO2 ARTERIAL (BEAKER) (test cvvn=895) 314 mmHg 80-90 O2 SATURATION ARTERIAL (BEAKER) (test bzxt=713) 99.7 % 96.0-97.0 HCO3 ARTERIAL (BEAKER) (test wwij=833) 24 mmol/L 21-29 BASE EXCESS ARTERIAL (BEAKER) (test anna=475) -1.2 mmol/L -2.0-3.0 PATIENT TEMPERATURE (BEAKER) (test kfvq=6675) 36.8 C FIO2 (BEAKER) (test ynjc=7798) 100.0 % GLUCOSE-STAT [id number] 09:14:00 Test Item Value Reference Range Comments GLUCOSE RANDOM (BEAKER) (test xbjb=936) 202 mg/dL 70-110 SODIUM NA-STAT [id number] 09:14:00 Test Item Value Reference Range Comments SODIUM (BEAKER) (test gyoy=132) 129 meq/L 135-148 OXYGEN SATURATION, [id number] 08:55:00 Test Item Value Reference Range Comments O2 SATURATION (MEASURED) (BEAKER) (test pwsx=2117) 94.9 % BLOOD GAS, [id number] 08:55:00 Test Item Value Reference Range Comments PH ARTERIAL (BEAKER) (test mxsr=611) 7.37 7.35-7.45 PCO2 ARTERIAL (BEAKER) (test gked=297) 41 mmHg 35-45 PO2 ARTERIAL (BEAKER) (test uncd=846) 250 mmHg 80-90 O2 SATURATION ARTERIAL (BEAKER) (test wihy=403) 99.6 % 96.0-97.0 HCO3 ARTERIAL (BEAKER) (test rayr=307) 25 mmol/L 21-29 BASE EXCESS ARTERIAL (BEAKER) (test wpfl=100) -1.9 mmol/L -2.0-3.0 PATIENT TEMPERATURE (BEAKER) (test zxye=7505) 32.3 C FIO2 (BEAKER) (test qhsc=5051) 70.0 % GLUCOSE-STAT [id number] 08:55:00 Test Item Value Reference Range Comments GLUCOSE RANDOM (BEAKER) (test xquh=059) 192 mg/dL 70-110 SODIUM NA-STAT [id number] 08:55:00 Test Item Value Reference Range Comments SODIUM (BEAKER) (test uipa=248) 129 meq/L 135-148 HGB/HCT (H&H) - STAT [id number] 08:55:00 Test Item Value Reference Range Comments HEMOGLOBIN (BEAKER) (test kbcp=165) 10.4 g/dL 13.0-16.8 HEMATOCRIT (BEAKER) (test idtw=938) 31.0 % 40.0-50.0 POTASSIUM-STAT [id number] 08:53:00 Test Item Value Reference Range Comments POTASSIUM (BEAKER) (test hxmn=427) 4.9 meq/L 3.6-5.5 PLATELET AGGREGATION: FUNCTION [id number] 08:44:00 Test Item Value Reference Range Comments WEAK ADP RESULT(BEAKER) (test 74 % 60-91 zlwi=0139) PLATELET FUNCTION SCREEN 60-100% indicates normal INTERP (BEAKER) (test platelet function zqlt=7541) [id number] (BEAKER) Lina Davidson MD (test kcxx=4259) (electronic signature) PLATELET COUNT AGG (BEAKER) 283 K/CU MM 150-450 (test wzgm=9369) for patients on clopidogrel in past two weeksBLOOD GAS, [id number] 08:03 :00 Test Item Value Reference Range Comments PH ARTERIAL (BEAKER) (test wilv=868) 7.40 7.35-7.45 PCO2 ARTERIAL (BEAKER) (test mrvp=229) 43 mmHg 35-45 PO2 ARTERIAL (BEAKER) (test sjai=301) 478 mmHg 80-90 O2 SATURATION ARTERIAL (BEAKER) (test zcjj=998) 99.9 % 96.0-97.0 HCO3 ARTERIAL (BEAKER) (test ngpu=548) 27 mmol/L 21-29 BASE EXCESS ARTERIAL (BEAKER) (test xvzd=885) 0.9 mmol/L -2.0-3.0 PATIENT TEMPERATURE (BEAKER) (test nthn=1380) 35.0 C FIO2 (BEAKER) (test pvmb=0401) 100.0 % GLUCOSE-STAT [id number] 08:03:00 Test Item Value Reference Range Comments GLUCOSE RANDOM (BEAKER) (test vgiw=644) 221 mg/dL 70-110 SODIUM NA-STAT [id number] 08:03:00 Test Item Value Reference Range Comments SODIUM (BEAKER) (test ysab=552) 132 meq/L 135-148 CALCIUM, [id number] 08:03:00 Test Item Value Reference Range Comments CALCIUM IONIZED (BEAKER) (test wcgi=469) 1.05 mmol/L 1.12-1.27 PH, BLOOD (BEAKER) (test yhsd=6903) 7.38 POTASSIUM-STAT [id number] 08:02:00 Test Item Value Reference Range Comments POTASSIUM (BEAKER) (test kwhn=176) 4.6 meq/L 3.6-5.5 HGB/HCT (H&H) - STAT [id number] 08:02:00 Test Item Value Reference Range Comments HEMOGLOBIN (BEAKER) (test wzro=110) 14.9 g/dL 13.0-16.8 HEMATOCRIT (BEAKER) (test uwey=089) 44.0 % 40.0-50.0 RAD, CHEST, 1 VIEW, NON [id number] 06:45:00Reason for exam:->pre opShould this be performed at the bedside?->YesFINAL REPORT INDICATION: pre op COMPARISON: None TECHNIQUE: Single frontal view of the chest. FINDINGS: Lungs and pleura: Clear lungs. No effusion.Heart and mediastinum: Normal heart size. Unremarkable mediastinal contours.Osseous structures: Remote, healed right rib fractures as well as fixation plates. No acute abnormality.Other: None. IMPRESSION: No acute intrathoracic abnormality. Signed: JR Klein Robert MDReport Verified Date/Time: 06/30/2017 06:45: 20 Reading Location: [facility] C013Y CT Body Reading Room POCT-GLUCOSE [id number] 06 :37:00 Test Item Value Reference Range Comments POC-GLUCOSE METER (BEAKER) 216 mg/dL 70-110 TESTED AT [facility] [address] [facility] (test ocah=9807) [facility] [address] COMPREHENSIVE METABOLIC [id number] 02:09:00 Test Item Value Reference Range Comments TOTAL PROTEIN (BEAKER) 7.5 gm/dL 6.0-8.3 (test esnz=346) ALBUMIN (BEAKER) (test 4.2 g/dL 3.5-5.0 iqpn=9162) ALKALINE PHOSPHATASE 64 U/L 40-150 (BEAKER) (test llwo=173) BILIRUBIN TOTAL (BEAKER) 0.5 mg/dL 0.2-1.2 (test phkc=752) SODIUM (BEAKER) (test 134 meq/L 136-145 orqx=898) POTASSIUM (BEAKER) (test 4.4 meq/L 3.5-5.1 xkro=452) CHLORIDE (BEAKER) (test 97 meq/L 98-107 tneh=808) CO2 (BEAKER) (test 26 meq/L 22-29 yhzt=492) BLOOD UREA NITROGEN 15 mg/dL 7-21 (BEAKER) (test ruys=153) CREATININE (BEAKER) (test 1.15 mg/dL 0.57-1.25 nwgc=827) GLUCOSE RANDOM (BEAKER) 272 mg/dL 70-105 (test oobl=861) CALCIUM (BEAKER) (test 9.6 mg/dL 8.4-10.2 iyxc=957) AST (SGOT) (BEAKER) (test 21 U/L 5-34 ndae=354) ALT (SGPT) (BEAKER) (test 34 U/L 6-55 uebb=264) EGFR (BEAKER) (test 66 mL/min/1.73 sq m ESTIMATED GFR IS NOT klsj=9773) ACCURATE CREATININE CLEARANCE IN PREDICTING GLOMERULAR FILTRATION RATE. ESTIMATED GFR IS NOT APPLICABLE FOR DIALYSIS PATIENTS. PROTHROMBIN TIME/[id number] 01:59:00 Test Item Value Reference Range Comments PROTIME (BEAKER) (test giwa=559) 11.9 seconds 11.7-14.7 INR (BEAKER) (test huxr=072) 0.9 <=5.9 RECOMMENDED COUMADIN/WARFARIN INR THERAPY RANGESSTANDARD DOSE: 2.0 - 3.0 Includes: PROPHYLAXIS forvenous thrombosis, systemic embolization; TREATMENT for venous thrombosis and/or pulmonary embolus.HIGH RISK: Target INR is 2.5-3.5 for patients with mechanical heart valves.CBC W/PLT COUNT & AUTO [id number] 01:55:00 Test Item Value Reference Range Comments WHITE BLOOD CELL COUNT (BEAKER) (test fxpm=391) 6.4 K/ L 3.5-10.5 RED BLOOD CELL COUNT (BEAKER) (test qxtx=936) 4.37 M/ L 4.63-6.08 HEMOGLOBIN (BEAKER) (test trxi=117) 14.3 GM/DL 13.7-17.5 HEMATOCRIT (BEAKER) (test xsgz=879) 41.0 % 40.1-51.0 MEAN CORPUSCULAR VOLUME (BEAKER) (test pgwc=106) 93.8 fL 79.0-92.2 MEAN CORPUSCULAR HEMOGLOBIN (BEAKER) (test 32.7 pg 25.7-32.2 hsjr=266) MEAN CORPUSCULAR HEMOGLOBIN CONC (BEAKER) (test 34.9 GM/DL 32.3-36.5 msnb=406) RED CELL DISTRIBUTION WIDTH (BEAKER) (test 11.9 % 11.6-14.4 flzc=695) PLATELET COUNT (BEAKER) (test nlav=493) 277 K/CU MM 150-450 MEAN PLATELET VOLUME (BEAKER) (test owoa=644) 8.9 fL 9.4-12.4 NUCLEATED RED BLOOD CELLS (BEAKER) (test 0 /100 WBC 0-0 ygtx=306) NEUTROPHILS RELATIVE PERCENT (BEAKER) (test 50 % evsv=695) LYMPHOCYTES RELATIVE PERCENT (BEAKER) (test 33 % dcem=458) MONOCYTES RELATIVE PERCENT (BEAKER) (test 10 % kulu=139) EOSINOPHILS RELATIVE PERCENT (BEAKER) (test 5 % yvcc=982) BASOPHILS RELATIVE PERCENT (BEAKER) (test 1 % rvza=083) NEUTROPHILS ABSOLUTE COUNT (BEAKER) (test 3.24 K/ L 1.78-5.38 egpd=636) LYMPHOCYTES ABSOLUTE COUNT (BEAKER) (test 2.09 K/ L 1.32-3.57 nqek=400) MONOCYTES ABSOLUTE COUNT (BEAKER) (test 0.67 K/ L 0.30-0.82 cndi=048) EOSINOPHILS ABSOLUTE COUNT (BEAKER) (test 0.32 K/ L 0.04-0.54 ijrf=828) BASOPHILS ABSOLUTE COUNT (BEAKER) (test 0.07 K/ L 0.01-0.08 btia=496) IMMATURE GRANULOCYTES-RELATIVE PERCENT (BEAKER) 1 % 0-1 (test lvyr=8976)
[2018-01-31] MEDS ORDERED: NA CHLORIDE 0.9% 1,000 ML ONE (08:18)
[2018-01-31] MEDS ORDERED: PROPOFOL 200 MG/20 ML VIAL IV ONE ×2 (09:56→10:44)
[2018-01-31] MEDS ORDERED: LIDOCAINE 1% MPF 5 ML VIAL ONE (09:57)
[2018-01-31] MEDS ORDERED: GLUCAGON 1 MG/VIAL ONE (10:14)
--- NOTE | 2018-01-31 10:57 | ENDO RPT ---
[address], [address] COLONOSCOPY PROCEDURE REPORT EXAM DATE: 01/31/2018 PATIENT NAME: Jaison Menard MR #: [id number] BIRTHDATE: 1965 ATTENDING: Moy Donald Dr STATUS: outpatient MOTOR COACH OPERATOR: Melonie Patel, Julienne Moreno RN, and Kevin Patel INDICATIONS: The patient is a 52 yr old Male here for a colonoscopy due to colon cancer screening PROCEDURE PERFORMED: Colonoscopy with snare polypectomy and Colon w/ endoclip MEDICATIONS: Per Anesthesia. ESTIMATED BLOOD LOSS: Minimal CONSENT: The patient understands the risks and benefits of the procedure and understands that these risks include, but are not limited to: sedation, allergic reaction, infection, perforation and/or bleeding. Alternative means of evaluation and treatment include, among others: physical exam, x-rays, and/or surgical intervention. The patient elects to proceed with this endoscopic procedure. DESCRIPTION OF PROCEDURE: During intra-op preparation period all mechanical medical equipment was checked for proper function. Hand hygiene and appropriate measures for infection prevention was taken. Procedure, possible complications, alternatives including, but not limited to possibility of bleeding, perforation, tear, infection, sepsis, need for surgery, need for blood transfusion, were explained to the patient. After the risks, benefits and alternatives of the procedure were thoroughly explained, Informed consent was verified, confirmed and timeout was successfully executed by the treatment team. The patient was placed in the left lateral position. A digital rectal exam was performed and revealed an enlarged prostate. After appropriate level of anesthesia, the scope was passed. The [id number] ([id number]) endoscope was introduced through the anus and advanced to the terminal ileum which was intubated for a short distance. The quality of the prep was good. The instrument was then slowly withdrawn as the colon was fully examined. Scope withdrawal time was 8 minutes. COLON FINDINGS: The mucosa appeared normal and in the transverse colon. The mucosa appeared normal and in the distal transverse colon. A pedunculated polyp measuring 1.5 cm in size was found in the sigmoid colon. A polypectomy was performed using snare cautery. A pedunculated polyp measuring 1.1 cm in size was found in the sigmoid colon. A polypectomy was performed using snare cautery. Three sessile polyps ranging between 5-9mm in size were found in the rectum. A polypectomy was performed using snare cautery. Small internal hemorrhoids were found. Retroflexed views revealed small hemorrhoids. The scope was then completely withdrawn from the patient and the procedure terminated. ADVERSE EVENTS: There were no complications. IMPRESSIONS: 1. 2.2 cm flat floppy mucosa in the mid transverse colon, s/p biopsy 2. 1.5 cm flat floppy mucosa in the distal transverse colon, s/p biopsy 3. 1.5 cm pedunculated polyp in the sigmoid colon; polypectomy using snare 4. 1.1 cm pedunculated polyp in the sigmoid colon; polypectomy using snare cautery 5. Three sessile polyps ranging between 5-9mm in size in the rectum; polypectomy was performed using snare cautery 6. Small internal hemorrhoids 7. Intubation to terminal ileum RECOMMENDATIONS: 1. await biopsy results 2. avoid NSAIDS for 2 weeks 3. fiber rich diet RECALL: Return in 6 month(s) for Colonoscopy. Moy Donald Dr eSigned: Moy Donald Dr 01/31/2018 10:44 AM cc: CPT CODES: ICD9 CODES: 1. 600.0 Hypertrophy (benign) of prostate 2. 211.3 Benign neoplasm of colon 3. 569.0 Anal and rectal polyp PATIENT NAME: Jaison Menard MR#: [id number]
[2018-01-31 11:04] VITALS: BP 140/76; TEMP 97.3; O2SAT 99
--- NOTE | 2018-01-31 13:33 | RAD REPORT ---
EXAM DESCRIPTION: CT - Chest Abdomen Pelvis W Cont - 01/31/2018 1:04 pm CLINICAL HISTORY: Colon mass, polyp removal COMPARISON: CT chest October 2016, CT abdomen and pelvis October 2016, CT trauma study September 2016 TECHNIQUE: Following dynamic enhancement using 100 milliliters nonionic IV contrast, axial imaging o f the chest, abdomen and pelvis was performed. Biphasic technique was utilized through the abdomen. Oral contrast was administered. All CT scans are performed using dose optimization technique as appropriate and may include automated exposure control or mA/KV adjustment according to patient size. FINDINGS: The right-sided pleural effusion and atelectasis findings seen in the 2016 comparison have resolved. Patient has some remnant pleural and parenchymal scarring in the right side. No suspicious lung parenchymal mass. In the subpleural anterior right middle lobe there is a 4 mm noncalcified nod ule. Nodule appears to have been present and unchanged on the September 2016 exam. No suspicious lung par enchymal process seen. No pleural effusion, pleural thickening or pneumothorax. No significant aortic or pulmonary arterial tree finding. Mediastinal and hilar regions show no mass or abnormal lymphaden opathy. No chest wall mass or axillary lymphadenopathy. Numerous healed and ununited rib fractures ar e present. There is also postsurgical fixation of fractures in the lower right chest. Sternotomy wire s are in place. Liver shows diffuse fatty infiltration pattern. No focal liver lesion to suspect metastatic disease. The spleen and pancreas show no suspicious findings. Gallbladder and biliary tree are unremarkable. Gallstones can be occult on CT imaging. Symmetric renal function is seen with no mass or hydronephros is. No adrenal abnormalities. No gastric dilatation or gastric wall thickening. No acute small bowel finding. Oral contrast has coco ched the distal rectum. No large circumferential mass identifiable. CT has limited sensitivity in mark luating mucosal level masses are polyps. Patient has minimal diverticulosis. No diverticulitis. No ac [place] GI findings seen. No free air, free fluid or inflammatory stranding. No mass or bulky lymphadenopathy identifiable. A v josh minimal fat only umbilical hernia is present. Disc and bony degenerative changes are present in the spine. No pathologic spine process. No significant vascular findings. IMPRESSION: No suspicious pulmonary nodule, mass or acute lung parenchymal process. Scarring changes are present. Fatty infiltration of the liver with no focal liver lesion. No ascites, lymphadenopathy or other find ing to suspect distant disease. Mild diverticulosis. An acute colon process is not seen. CT sensitivity is limited for evaluating muc osal level masses and polyps. The extensive pleural fluid and lung parenchymal changes seen in the right hemithorax October 2016 have r esolved. There are postsurgical changes to the sternum and right side rib cage.
== END 2018-01-31 13:06 | disposition home or self-care (01) ==
LOC: OR 08:00
PROVIDERS: ATTEND Internal Medicine Gastroenterology
PROC: 0DBN8ZX Excision of Sigmoid Colon, Via Natural or Artificial Opening Endoscopic, Diagnostic (ICD-10-PCS; 2018-01-31)
PROC: 0DBL8ZX Excision of Transverse Colon, Via Natural or Artificial Opening Endoscopic, Diagnostic (ICD-10-PCS; 2018-01-31)
PROC: 0DBP8ZX Excision of Rectum, Via Natural or Artificial Opening Endoscopic, Diagnostic (ICD-10-PCS; principal; 2018-01-31 10:30)
DX: Z12.11 Encounter for screening for malignant neoplasm of colon (principal); D12.5 Benign neoplasm of sigmoid colon; K63.5 Polyp of colon; I25.2 Old myocardial infarction; I10 Essential (primary) hypertension; F17.210 Nicotine dependence, cigarettes, uncomplicated; K64.8 Other hemorrhoids
CPT/HCPCS: 36415; 71260; 74177; 82378; 82565; 82962; 88305; J1610; J7030; Q9967

== ENCOUNTER 2020-01-23 06:21 | Day surgery (SDC) | payer BC ==
--- NOTE | 2020-01-18 17:39 | RAD REPORT ---
EXAM DESCRIPTION: Eva Mcgee (2 Views)01/18/2020 5:11 pm CLINICAL HISTORY: Preop/hypertension COMPARISON: 2017 FINDINGS: Postsurgical changes involve chest The lungs appear clear of acute infiltrate. The heart is normal size IMPRESSION: No acute abnormalities displayed
[2020-01-18 18:02] LABS: Potassium 4.1 mmol/L (3.5-5.1)
[2020-01-18 18:06] LABS: Absolute Lymphocytes (CBC) 2.4 K/uL (0.7-4.9); Basophils % 1.3 % (0-1.3); Hematocrit 41.6 % (39.6-49.0); Lymphocytes % 33.4 % (15.3-44.8); MPV 7.7 fL (7.6-11.3); RBC Red Blood Cell Count 4.27 M/uL (4.33-5.43)
[2020-01-18 18:07] LABS: Protime INR 0.88
--- NOTE | 2020-01-19 15:26 | EKG ---
Test Date: 2020-01-18 Test Time: 16:51:24 Wallpaper Installer: FARZAD MEASUREMENT RESULTS: Intervals: Rate: 73 MT: 196 QRSD: 88 QT: 372 QTc: 409 [place]: P: 45 MT: 196 QRS: 44 T: 63 INTERPRETIVE STATEMENTS: Normal sinus rhythm Inferior infarct, age undetermined Abnormal ECG Compared to ECG 06/26/2017 09:51:25 No significant changes Electronically Signed On 01-19-20 15:24:13 CDT by Matias Petit
--- OUTSIDE RECORDS SUMMARY | 2020-01-23 06:23 | XMS REPORT | Clinical Summary ---
:1965 Author Organization [facility] Address [address] [place] [address] Care Team Providers Name Role Phone Nehal Cobos MARKETING OPERATIONS ASSOCIATE Primary Care Provider [place] Unavailable Allergies No Known Allergies Medications Medication Sig Dispensed Refills Start Date End Date Status metFORMIN Take 1,000 mg by 0 Act norm (GLUCOPHAGE) 1000 MG mouth 2 (two) times tablet daily with breakfast and dinner. SITagliptin (JANUVIA) Take 100 mg by 0 Active 100 MG tablet mouth daily. Active Problems Problem Noted Date S/P coronary artery bypass graft x 4 07/05/2017 Essential hypertension 06/30/2017 Type 2 diabetes mellitus without complication 06/30/19 18 CAD (coronary artery disease) 06/29/2017 Social History Tobacco Use Types Packs/Day Years Used Date Never Assessed Sex Assigned at Date Recorded Not on file Job Start Date Occupation Industry Not on file Not on file Not on file Travel History Travel Start Travel End No recent travel history available. Last Filed Vital Signs Not on file Plan of Treatment Not on file Implants Implanted Type Area Helpdesk Manager Device Shelf Model / Identifier Expiration Serial / Date Lot Sternal Zipfix Ndl [facility] 501.001.20s - Sn/A Cardiovascular St ernum SYNTHES:SYNTHES 12/25/2021 08.001.20S / Implanted: Qty: 1 on 06/30/2017 by Fabian Spencer MD [facility] N/A / [id number] Results Not on fileafter 01/22/2019 Insurance Payer Benefit Plan / Subscriber ID Type Phone Address Group BLUE CROSS/BLUE BCBS PPO POS EPO xxxxxxxxxxxx PPO [phone] [address] [place] [address] Advance Directives For more information, please contact:[place] [address] [address] [place], [place] [phone] Code Status Date Activated Date Inactivated Comments Full Code 06/30/2017 10:54 AM 07/05/2017 6:40 PM This code status was determined by: Patient Full Code 06/29/2017 11:41 PM 06/30/2017 10:54 AM This code status was determined by: Patient Full Code 06/29/2017 11:41 PM 06/29/2017 11:41 PM This code status was determined by: Patient
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
--- OUTSIDE RECORDS SUMMARY | 2020-01-23 06:37 | XMS REPORT | Continuity of Care Document ---
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 MEAN CORPUSCULAR VOLUME (AKER) 96.5 fL 79.0-92.2 H (test code = 753) MEAN CORPUSCULAR HEMOGLOBIN 32.9 pg 25.7-32.2 H (AKER) (test code = 751) MEAN CORPUSCULAR HEMOGLOBIN CONC 34.1 GM/DL 32.3-36.5 (AKER) (test code = 752) RED CELL DISTRIBUTION WIDTH 12.1 % 11.6-14.4 (BEAKER) (test code = 412) PLATELET COUNT (BEAKER) (test 202 K/CU MM 150-450 code = 756) MEAN PLATELET VOLUME (BEAKER) 9.4 fL 9.4-12.4 (test code = 754) NUCLEATED RED BLOOD CELLS 0 /100 WBC 0-0 (BEAKER) (test code = 413) NEUTROPHILS RELATIVE PERCENT 60 % (BEAKER) (test code = 429) LYMPHOCYTES RELATIVE PERCENT 24 % (BEAKER) (test code = 430) MONOCYTES RELATIVE PERCENT 11 % (BEAKER) (test code = 431) EOSINOPHILS RELATIVE PERCENT 3 % (BEAKER) (test code = 432) BASOPHILS RELATIVE PERCENT 1 % (BEAKER) (test code = 437) NEUTROPHILS ABSOLUTE COUNT 4.37 K/ L 1.78-5.38 (BEAKER) (test code = 670) LYMPHOCYTES ABSOLUTE COUNT 1.77 K/ L 1.32-3.57 (BEAKER) (test code = 414) MONOCYTES ABSOLUTE COUNT (BEAKER) 0.83 K/ L 0.30-0.82 H (test code = 415) EOSINOPHILS ABSOLUTE COUNT 0.20 K/ L 0.04-0.54 (BEAKER) (test code = 416) BASOPHILS ABSOLUTE COUNT (BEAKER) 0.04 K/ L 0.01-0.08 (test code = 417) IMMATURE GRANULOCYTES-RELATIVE 1 % 0-1 PERCENT (BEAKER) (test code = 2801) [id number] 06:22:00 Test Item Value Reference Range Interpretation Comments MAGNESIUM (BEAKER) (test code = 1.5 mg/dL 1.6-2.6 L 627) BASIC METABOLIC [id number] 06:22:00 Test Item Value Reference Range Interpretation Comments SODIUM (BEAKER) 136 meq/L 136-145 (test code = 381) POTASSIUM (BEAKER) 3.8 meq/L 3.5-5.1 (test code = 379) CHLORIDE (BEAKER) 102 meq/L 98-107 (test code = 382) CO2 (BEAKER) (test 26 meq/L 22-29 code = 355) BLOOD UREA NITROGEN 10 mg/dL 7-21 (BEAKER) (test code = 354) CREATININE (BEAKER) 0.82 mg/dL 0.57-1.25 (test code = 358) GLUCOSE RANDOM 128 mg/dL 70-105 H (BEAKER) (test code = 652) CALCIUM (BEAKER) 8.9 mg/dL 8.4-10.2 (test code = 697) EGFR (BEAKER) (test 98 mL/min/1.73 ESTIMA VALERI GFR IS code = 1092) sq m NOT ACCURATE CREATININE CLEARANCE IN PREDICTING GLOMERULAR FILTRATION RATE . ESTIMATED GFR I S NOT APPLICABLE FOR DIALYSIS PATIEN TS. POCT-GLUCOSE [id number] 00:24:00 Test Item Value Reference Range Interpretation Comments POC-GLUCOSE METER 171 mg/dL 70-110 H TESTED AT [place] [address] ([facility]) (test code = [facility] 1538) 6[address] POCT-GLUCOSE [id number] 17:06:00 Test Item Value Reference Range Interpretation Comments POC-GLUCOSE METER 164 mg/dL 70-110 H TESTED AT [place] [address] ([facility]) (test code = [facility] 1538) 987[address] POCT-GLUCOSE [id number] 13:05:00 Test Item Value Reference Range Interpretation Comments POC-GLUCOSE METER 258 mg/dL 70-110 H TESTED AT [place] [address] ([facility]) (test code = [facility] 1538) 24289 CBC W/PLT COUNT & AUTO [id number] 12:24:00 Test Item Value Reference Range Interpretation Comments WHITE BLOOD CELL COUNT (BEAKER) 10.4 K/ L 3.5-10.5 (test code = 775) RED BLOOD CELL COUNT (BEAKER) 3.14 M/ L 4.63-6.08 L (test code = 761) HEMOGLOBIN (BEAKER) (test code = 10.3 GM/DL 13.7-17.5 L 410) HEMATOCRIT (BEAKER) (test code = 30.4 % 40.1-51.0 L 411) MEAN CORPUSCULAR VOLUME (BEAKER) 96.8 fL 79.0-92.2 H (test code = 753) MEAN CORPUSCULAR HEMOGLOBIN 32.8 pg 25.7-32.2 H (BEAKER) (test code = 751) MEAN CORPUSCULAR HEMOGLOBIN CONC 33.9 GM/DL 32.3-36.5 (BEAKER) (test code = 752) RED CELL DISTRIBUTION WIDTH 12.4 % 11.6-14.4 (BEAKER) (test code = 412) PLATELET COUNT (BEAKER) (test 195 K/CU MM 150-450 code = 756) MEAN PLATELET VOLUME (BEAKER) 9.4 fL 9.4-12.4 (test code = 754) NUCLEATED RED BLOOD CELLS 0 /100 WBC 0-0 (BEAKER) (test code = 413) NEUTROPHILS RELATIVE PERCENT 73 % (BEAKER) (test code = 429) LYMPHOCYTES RELATIVE PERCENT 12 % (BEAKER) (test code = 430) MONOCYTES RELATIVE PERCENT 12 % (BEAKER) (test code = 431) EOSINOPHILS RELATIVE PERCENT 2 % (BEAKER) (test code = 432) BASOPHILS RELATIVE PERCENT 0 % (BEAKER) (test code = 437) NEUTROPHILS ABSOLUTE COUNT 7.53 K/ L 1.78-5.38 H (BEAKER) (test code = 670) LYMPHOCYTES ABSOLUTE COUNT 1.24 K/ L 1.32-3.57 L (BEAKER) (test code = 414) MONOCYTES ABSOLUTE COUNT (BEAKER) 1.25 K/ L 0.30-0.82 H (test code = 415) EOSINOPHILS ABSOLUTE COUNT 0.24 K/ L 0.04-0.54 (BEAKER) (test code = 416) BASOPHILS ABSOLUTE COUNT (BEAKER) 0.03 K/ L 0.01-0.08 (test code = 417) IMMATURE GRANULOCYTES-RELATIVE 1 % 0-1 PERCENT (BEAKER) (test code = 2802) HEMOGLOBIN [id number] 09:33:00 Test Item Value Reference Range Interpretation Comments HEMOGLOBIN A1C (BEAKER) (test code = 7.0 % 4.3-6.1 H 368) POCT-GLUCOSE [id number] 08:36:00 Test Item Value Reference Range Interpretation Comments POC-GLUCOSE METER 184 mg/dL 70-110 H TESTED AT [facility] 6720 (BEAKER) (test code = [place] 1539) [address] BASIC METABOLIC [id number] 06:11:00 Test Item Value Reference Range Interpretation Comments SODIUM (BEAKER) 133 meq/L 136-145 L (test code = 381) POTASSIUM (BEAKER) 4.7 meq/L 3.5-5.1 (test code = 379) CHLORIDE (BEAKER) 101 meq/L 98-107 (test code = 382) CO2 (BEAKER) (test 26 meq/L 22-29 code = 355) BLOOD UREA NITROGEN 8 mg/dL 7-21 (BEAKER) (test code = 354) CREATININE (BEAKER) 0.84 mg/dL 0.57-1.25 (test code = 358) GLUCOSE RANDOM 159 mg/dL 70-105 H (BEAKER) (test code = 652) CALCIUM (BEAKER) 8.8 mg/dL 8.4-10.2 (test code = 697) EGFR (BEAKER) (test 95 mL/min/1.73 ESTIMA VALERI GFR IS code = 1092) sq m NOT ACCURATE CREATININE CLEARANCE IN PREDICTING GLOMERULAR FILTRATION RATE . ESTIMATED GFR I S NOT APPLICABLE FOR DIALYSIS PATIEN TS. RAD, CHEST, 1 VIEW, NON [id number] 06:01:00Reason for exam:->pulmonary congestionShould this be performed at the bedside?->YesFINAL REPORT RAD, CHEST, 1 VIEW, NON DEPT INDICATION: pulmonary congestion COM PARISON: Prior day's exam FINDINGS: Portable frontal view [...] Bob Verified Date/Time: 07/02/2017 06:01:17 Reading Location: [address] Body Reading Room POCT-GLUCOSE [id number] 21:30:00 Test Item Value Reference Range Interpretation Comments POC-GLUCOSE METER 231 mg/dL 70-110 H TESTED AT [facility] 6720 ([facility]) (test code = [facility] 1538) 42562 POCT-GLUCOSE [id number] 17:10:00 Test Item Value Reference Range Interpretation Comments POC-GLUCOSE METER 158 mg/dL 70-110 H TESTED AT [facility] 6720 ([facility]) (test code = [facility] 1538) 97996 POCT-GLUCOSE [id number] 14:52:00 Test Item Value Reference Range Interpretation Comments POC-GLUCOSE METER 210 mg/dL 70-110 H TESTED AT [facility] 6720 (BEAKER) (test code = [place] 1538) 8[address] [id number] 06:25:00 Test Item Value Reference Range Interpretation Comments PHOSPHORUS (BEAKER) (test code = 3.7 mg/dL 2.3-4.7 604) [id number] 06:25:00 Test Item Value Reference Range Interpretation Comments MAGNESIUM (BEAKER) (test code = 1.7 mg/dL 1.6-2.6 627) BASIC METABOLIC [id number] 06:25:00 Test Item Value Reference Range Interpretation Comments SODIUM (BEAKER) 134 meq/L 136-145 L (test code = 381) POTASSIUM (BEAKER) 4.2 meq/L 3.5-5.1 (test code = 379) CHLORIDE (BEAKER) 106 meq/L 98-107 (test code = 382) CO2 (BEAKER) (test 20 meq/L 22-29 L code = 355) BLOOD UREA NITROGEN 9 mg/dL 7-21 (BEAKER) (test code = 354) CREATININE (BEAKER) 0.80 mg/dL 0.57-1.25 (test code = 358) GLUCOSE RANDOM 124 mg/dL 70-105 H (BEAKER) (test code = 652) CALCIUM (BEAKER) 8.5 mg/dL 8.4-10.2 (test code = 697) EGFR (BEAKER) (test 101 mL/min/1.73 ESTIM ATED GFR IS code = 1092) sq m NOT ACCURATE CREATININE CLEARANCE IN PREDICTING GLOMERULAR FILTRATION RATE . ESTIMATED GFR I S NOT APPLICABLE FOR DIALYSIS PATIEN TS. CBC (HEMOGRAM ONLY)2017-07-01 05:49:00 Test Item Value Reference Range Interpretation Comments WHITE BLOOD CELL COUNT (BEAKER) 9.3 K/ L 3.5-10.5 (test code = 775) RED BLOOD CELL COUNT (BEAKER) 3.25 M/ L 4.63-6.08 L (test code = 761) HEMOGLOBIN (BEAKER) (test code = 10.7 GM/DL 13.7-17.5 L 410) HEMATOCRIT (BEAKER) (test code = 31.3 % 40.1-51.0 L 411) MEAN CORPUSCULAR VOLUME (BEAKER) 96.3 fL 79.0-92.2 H (test code = 753) MEAN CORPUSCULAR HEMOGLOBIN 32.9 pg 25.7-32.2 H (BEAKER) (test code = 751) MEAN CORPUSCULAR HEMOGLOBIN CONC 34.2 GM/DL 32.3-36.5 (BEAKER) (test code = 752) RED CELL DISTRIBUTION WIDTH 12.2 % 11.6-14.4 (BEAKER) (test code = 412) PLATELET COUNT (AKER) (test 201 K/CU MM 150-450 code = 756) MEAN PLATELET VOLUME (BEAKER) 9.3 fL 9.4-12.4 L (test code = 754) NUCLEATED RED BLOOD CELLS 0 /100 WBC 0-0 ([facility]) (test code = 413) [id number] 05:31:00 Test Item Value Reference Range Interpretation Comments ACTIVATED CLOTTING TIME 109 sec TEST ED AT [place] [address] ([facility]) (test code = [place] [address]) [address] [id number] 05:31:00 Test Item Value Reference Range Interpretation Comments ACTIVATED CLOTTING TIME 455 sec TEST ED AT [place] [address] ([facility]) (test code = [place] [address]) [address] [id number] 05:31:00 Test Item Value Reference Range Interpretation Comments ACTIVATED CLOTTING TIME 400 sec TEST ED AT [place] [address] ([facility]) (test code = [place] [address]) [address] [id number] 05:31:00 Test Item Value Reference Range Interpretation Comments ACTIVATED CLOTTING TIME 500 sec TEST ED AT [place] [address] ([facility]) (test code = [facility] Patty [place] [address]) [address] OXYGEN SATURATION, [id number] 05:30:00 Test Item Value Reference Range Interpretation Comments O2 SATURATION (MEASURED) ([facility]) 66.9 % (test code = 1455) CALCIUM, [id number] 05:30:00 Test Item Value Reference Range Interpretation Comments CALCIUM IONIZED (AKER) (test 1.15 mmol/L 1.12-1.27 code = 698) PH, BLOOD ([facility]) (test code = 7.34 1810) RAD, CHEST, 1 VIEW, NON [id number] 04:56:00while patient is intubated or has chest [...] MDReport Verified Date/Time: 07/01/2017 04:56:29 Reading Location: [address] Body Reading Room POCT-GLUCOSE [id number] 01:10:00 Test Item Value Reference Range Interpretation Comments POC-GLUCOSE METER 138 mg/dL 70-110 H TESTED AT [place] [id number] ([facility]) (test code = [place] [facility] 1538) 28804 POCT-GLUCOSE [id number] 01:10:00 Test Item Value Reference Range Interpretation Comments POC-GLUCOSE METER 146 mg/dL 70-110 H TESTED AT [place] [id number] ([facility]) (test code = [place] [facility] 1538) 10248 POCT-GLUCOSE [id number] 18:23:00 Test Item Value Reference Range Interpretation Comments POC-GLUCOSE METER 157 mg/dL 70-110 H TESTED AT [facility] 6720 ([facility]) (test code = [place] [facility] 1538) [address] POCT-GLUCOSE [id number] 18:23:00 Test Item Value Reference Range Interpretation Comments POC-GLUCOSE METER 168 mg/dL 70-110 H TESTED AT [facility] 6720 ([facility]) (test code = [place] [facility] 1538) [address] POCT-GLUCOSE [id number] 16:24:00 Test Item Value Reference Range Interpretation Comments POC-GLUCOSE METER 160 mg/dL 70-110 H TESTED AT [place] [address] ([facility]) (test code = [place] [facility] 1538) [address] [id number] 16:05:00 Test Item Value Reference Range Interpretation Comments MAGNESIUM (BEAKER) (test code = 2.0 mg/dL 1.6-2.6 627) BLOOD GAS, [id number] 14:33:00 Test Item Value Reference Range Interpretation Comments PH ARTERIAL (BEAKER) (test code = 7.36 7.35-7.45 383) PCO2 ARTERIAL (BEAKER) (test code 40 mmHg 35-45 = 384) PO2 ARTERIAL (BEAKER) (test code 112 mmHg 80-90 H = 385) O2 SATURATION ARTERIAL (BEAKER) 98.1 % 96.0-97.0 H (test code = 386) HCO3 ARTERIAL (BEAKER) (test code 23 mmol/L 21-29 = 388) BASE EXCESS ARTERIAL (BEAKER) -2.9 mmol/L -2.0-3.0 L (test code = 387) PATIENT TEMPERATURE (BEAKER) 36.3 C (test code = 1818) FIO2 (BEAKER) (test code = 1819) 60.0 % POCT-GLUCOSE [id number] 14:29:00 Test Item Value Reference Range Interpretation Comments POC-GLUCOSE METER 173 mg/dL 70-110 H TESTED AT [place] [address] ([facility]) (test code = [place] [facility] 1538) [address] POCT-GLUCOSE [id number] 13:41:00 Test Item Value Reference Range Interpretation Comments POC-GLUCOSE METER 186 mg/dL 70-110 H TESTED AT [place] [address] ([facility]) (test code = [place] [facility] 1538) 33962 POCT-GLUCOSE [id number] 12:39:00 Test Item Value Reference Range Interpretation Comments POC-GLUCOSE METER 171 mg/dL 70-110 H TESTED AT [place] [address] ([facility]) (test code = [place] [facility] 1538) [address] [id number] 11:42:00 Test Item Value Reference Range Interpretation Comments PARTIAL THROMBOPLASTIN TIME 28.1 seconds 22.5-36.0 ([facility]) (test code = 760) [id number] 11:42:00 Test Item Value Reference Range Interpretation Comments FIBRINOGEN LEVEL (BEAKER) (test 309 mg/dl 225-434 code = 658) PROTHROMBIN [id number] 11:41:00 Test Item Value Reference Range Interpretation Comments PROTIME (BEAKER) (test code = 16.1 seconds 11.7-14.7 H 759) INR (BEAKER) (test code = 370) 1.3 <=5.9 RECOMMENDED COUMADIN/WARFARIN INR THERAPY RANGESSTANDARD DOSE: 2.0 - 3.0 Includes: PROPHYLAXIS forvenous thrombosis, systemic embolization; TREATMENT for venous thrombosis and/or pulmonary embolus.HIGH RISK: Target INR is 2.5-3.5 for patients with mechanical heart valves.RAD, CHEST, 1 VIEW, NON [id number] 11:38:00Reason for exam:->postopShould this be performed at the bedside?->YesFINAL REPORT Two frontal chest images compared to June 30, 2017 Discussion:Postoperative changes are noted with support tubes and right IJ line. There is mild interstitial congestion and atelectasis. No effusion or pneumothorax. Signed: Bruce Wahl Verified Date/Time: 06/30/2017 11:38:48 Reading Location: [facility] Radiology Reading Room [id number] 11:29:00 Test Item Value Reference Range Interpretation Comments MAGNESIUM (BEAKER) 2.7 mg/dL 1.6-2.6 H Specimen slightly (test code = 627) hemolyzed [id number] 11:29:00 Test Item Value Reference Range Interpretation Comments PHOSPHORUS (BEAKER) 3.5 mg/dL 2.3-4.7 Specimen slightly (test code = 604) hemolyzed [id number] 11:29:00 Test Item Value Reference Range Interpretation Comments POTASSIUM (BEAKER) 5.0 meq/L 3.5-5.1 Specimen slightly (test code = 379) hemolyzed [id number] 11:29:00 Test Item Value Reference Range Interpretation Comments GLUCOSE RANDOM (BEAKER) (test code 205 mg/dL 70-105 H = 652) BASIC METABOLIC [id number] 11:29:00 Test Item Value Reference Range Interpretation Comments SODIUM (BEAKER) 134 meq/L 136-145 L (test code = 381) POTASSIUM (BEAKER) 5.0 meq/L 3.5-5.1 Specimen slightly (test code = 379) hemolyzed CHLORIDE (BEAKER) 105 meq/L 98-107 (test code = 382) CO2 (BEAKER) (test 24 meq/L 22-29 code = 355) BLOOD UREA NITROGEN 12 mg/dL 7-21 (BEAKER) (test code = 354) CREATININE (BEAKER) 0.90 mg/dL 0.57-1.25 Specimen slightly (test code = 358) hemolyzed GLUCOSE RANDOM 205 mg/dL 70-105 H (BEAKER) (test code = 652) CALCIUM (BEAKER) 8.6 mg/dL 8.4-10.2 (test code = 697) EGFR (BEAKER) (test 88 mL/min/1.73 ESTIMA VALERI GFR IS code = 1092) sq m NOT ACCURATE CREATININE CLEARANCE IN PREDICTING GLOMERULAR FILTRATION RATE . ESTIMATED GFR I S NOT APPLICABLE FOR DIALYSIS PATIEN TS. LACTIC ACID, ARTERIAL, WHOLE [id number] 11:26:00 Test Item Value Reference Range Interpretation Comments LACTATE BLOOD 0.9 mmol/L 0.5-2.2 Specimen sligh tly ARTERIAL (2) (BEAKER) hemoly zed (test code = 2874) Effective 10/30/2015: Units/Reference Range ChangeNew: 0.5-2.2 mmol/L Previous: 5-20 mg/dLCBC (HEMOGRAM ONLY)2017-06-30 11:14:00 Test Item Value Reference Range Interpretation Comments WHITE BLOOD CELL COUNT (BEAKER) 9.1 K/ L 3.5-10.5 (test code = 775) RED BLOOD CELL COUNT (BEAKER) 3.50 M/ L 4.63-6.08 L (test code = 761) HEMOGLOBIN (BEAKER) (test code = 11.7 GM/DL 13.7-17.5 L 410) HEMATOCRIT (BEAKER) (test code = 33.2 % 40.1-51.0 L 411) MEAN CORPUSCULAR VOLUME (BEAKER) 94.9 fL 79.0-92.2 H (test code = 753) MEAN CORPUSCULAR HEMOGLOBIN 33.4 pg 25.7-32.2 H (BEAKER) (test code = 751) MEAN CORPUSCULAR HEMOGLOBIN CONC 35.2 GM/DL 32.3-36.5 (BEAKER) (test code = 752) RED CELL DISTRIBUTION WIDTH 12.1 % 11.6-14.4 (BEAKER) (test code = 412) PLATELET COUNT (BEAKER) (test 143 K/CU MM 150-450 L code = 756) MEAN PLATELET VOLUME (BEAKER) 8.7 fL 9.4-12.4 L (test code = 754) NUCLEATED RED BLOOD CELLS 0 /100 WBC 0-0 (BEAKER) (test code = 413) CBC W/PLT COUNT & AUTO [id number] 11:14:00 Test Item Value Reference Range Interpretation Comments WHITE BLOOD CELL COUNT (BEAKER) 9.1 K/ L 3.5-10.5 (test code = 775) RED BLOOD CELL COUNT (BEAKER) 3.50 M/ L 4.63-6.08 L (test code = 761) HEMOGLOBIN (BEAKER) (test code = 11.7 GM/DL 13.7-17.5 L 410) HEMATOCRIT (BEAKER) (test code = 33.2 % 40.1-51.0 L 411) MEAN CORPUSCULAR VOLUME (BEAKER) 94.9 fL 79.0-92.2 H (test code = 753) MEAN CORPUSCULAR HEMOGLOBIN 33.4 pg 25.7-32.2 H (BEAKER) (test code = 751) MEAN CORPUSCULAR HEMOGLOBIN CONC 35.2 GM/DL 32.3-36.5 (BEAKER) (test code = 752) RED CELL DISTRIBUTION WIDTH 12.1 % 11.6-14.4 (BEAKER) (test code = 412) PLATELET COUNT (BEAKER) (test 143 K/CU MM 150-450 L code = 756) MEAN PLATELET VOLUME (BEAKER) 8.7 fL 9.4-12.4 L (test code = 754) NUCLEATED RED BLOOD CELLS 0 /100 WBC 0-0 (BEAKER) (test code = 413) NEUTROPHILS RELATIVE PERCENT 73 % (BEAKER) (test code = 429) LYMPHOCYTES RELATIVE PERCENT 17 % (BEAKER) (test code = 430) MONOCYTES RELATIVE PERCENT 6 % (BEAKER) (test code = 431) EOSINOPHILS RELATIVE PERCENT 2 % (BEAKER) (test code = 432) BASOPHILS RELATIVE PERCENT 0 % (BEAKER) (test code = 437) NEUTROPHILS ABSOLUTE COUNT 6.62 K/ L 1.78-5.38 H (BEAKER) (test code = 670) LYMPHOCYTES ABSOLUTE COUNT 1.57 K/ L 1.32-3.57 (BEAKER) (test code = 414) MONOCYTES ABSOLUTE COUNT (BEAKER) 0.53 K/ L 0.30-0.82 (test code = 415) EOSINOPHILS ABSOLUTE COUNT 0.20 K/ L 0.04-0.54 (BEAKER) (test code = 416) BASOPHILS ABSOLUTE COUNT (BEAKER) 0.03 K/ L 0.01-0.08 (test code = 417) IMMATURE GRANULOCYTES-RELATIVE 1 % 0-1 PERCENT (BEAKER) (test code = 2801) GLUCOSE-STAT [id number] 11:12:00 Test Item Value Reference Range Interpretation Comments GLUCOSE RANDOM (BEAKER) (test code 196 mg/dL 70-110 H = 652) SODIUM NA-STAT [id number] 11:12:00 Test Item Value Reference Range Interpretation Comments SODIUM (BEAKER) (test code = 381) 130 meq/L 135-148 L HGB/HCT (H&H) - STAT [id number] 11:12:00 Test Item Value Reference Range Interpretation Comments HEMOGLOBIN (BEAKER) (test code = 12.6 g/dL 13.0-16.8 L 410) HEMATOCRIT (BEAKER) (test code = 37.0 % 40.0-50.0 L 411) CALCIUM, [id number] 11:11:00 Test Item Value Reference Range Interpretation Comments CALCIUM IONIZED (BEAKER) (test 1.08 mmol/L 1.12-1.27 L code = 698) PH, BLOOD (BEAKER) (test code = 7.35 1810) BLOOD GAS, [id number] 11:11:00 Test Item Value Reference Range Interpretation Comments PH ARTERIAL (BEAKER) (test code = 7.37 7.35-7.45 383) PCO2 ARTERIAL (BEAKER) (test code 41 mmHg 35-45 = 384) PO2 ARTERIAL (BEAKER) (test code 149 mmHg 80-90 H = 385) O2 SATURATION ARTERIAL (BEAKER) 98.9 % 96.0-97.0 H (test code = 386) HCO3 ARTERIAL (BEAKER) (test code 24 mmol/L 21-29 = 388) BASE EXCESS ARTERIAL (BEAKER) -2.0 mmol/L -2.0-3.0 (test code = 387) PATIENT TEMPERATURE (BEAKER) 35.2 C (test code = 1818) FIO2 (BEAKER) (test code = 1819) 60.0 % POTASSIUM-STAT [id number] 11:09:00 Test Item Value Reference Range Interpretation Comments POTASSIUM (BEAKER) (test code = 4.8 meq/L 3.6-5.5 379) OXYGEN SATURATION, [id number] 11:09:00 Test Item Value Reference Range Interpretation Comments O2 SATURATION (MEASURED) (BEAKER) 78.7 % (test code = 1455) PLATELET [id number] 10:51:00 Test Item Value Reference Range Interpretation Comments PLATELET COUNT (BEAKER) (test 145 K/CU MM 150-450 L code = 756) [id number] 10:08:00 Test Item Value Reference Range Interpretation Comments FIBRINOGEN LEVEL (BEAKER) (test 324 mg/dl 225-434 code = 658) [id number] 10:08:00 Test Item Value Reference Range Interpretation Comments PARTIAL THROMBOPLASTIN TIME 27.3 seconds 22.5-36.0 (BEAKER) (test code = 760) PROTHROMBIN [id number] 10:07:00 Test Item Value Reference Range Interpretation Comments PROTIME (BEAKER) (test code = 17.4 seconds 11.7-14.7 H 759) INR (BEAKER) (test code = 370) 1.4 <=5.9 RECOMMENDED COUMADIN/WARFARIN INR THERAPY RANGESSTANDARD DOSE: 2.0 - 3.0 Includes: PROPHYLAXIS forvenous thrombosis, systemic embolization; TREATMENT for venous thrombosis and/or pulmonary embolus.HIGH RISK: Target INR is 2.5-3.5 for patients with mechanical heart valves.BLOOD GAS, [id number] 09:55:00 Test Item Value Reference Range Interpretation Comments PH ARTERIAL (BEAKER) (test code = 7.33 7.35-7.45 L 383) PCO2 ARTERIAL (BEAKER) (test code 47 mmHg 35-45 H = 384) PO2 ARTERIAL (BEAKER) (test code 285 mmHg 80-90 H = 385) O2 SATURATION ARTERIAL (BEAKER) 99.6 % 96.0-97.0 H (test code = 386) HCO3 ARTERIAL (BEAKER) (test code 24 mmol/L 21-29 = 388) BASE EXCESS ARTERIAL (BEAKER) -2.4 mmol/L -2.0-3.0 L (test code = 387) PATIENT TEMPERATURE (BEAKER) 36.8 C (test code = 1818) FIO2 (BEAKER) (test code = 1819) 100.0 % GLUCOSE-STAT [id number] 09:55:00 Test Item Value Reference Range Interpretation Comments GLUCOSE RANDOM (BEAKER) (test code 200 mg/dL 70-110 H = 652) SODIUM NA-STAT [id number] 09:55:00 Test Item Value Reference Range Interpretation Comments SODIUM (BEAKER) (test code = 381) 130 meq/L 135-148 L HGB/HCT (H&H) - STAT [id number] 09:55:00 Test Item Value Reference Range Interpretation Comments HEMOGLOBIN (BEAKER) (test code = 11.7 g/dL 13.0-16.8 L 410) HEMATOCRIT (BEAKER) (test code = 34.0 % 40.0-50.0 L 411) POTASSIUM-STAT [id number] 09:53:00 Test Item Value Reference Range Interpretation Comments POTASSIUM (BEAKER) (test code = 5.3 meq/L 3.6-5.5 379) CALCIUM, [id number] 09:53:00 Test Item Value Reference Range Interpretation Comments CALCIUM IONIZED (BEAKER) (test 1.15 mmol/L 1.12-1.27 code = 698) PH, BLOOD (BEAKER) (test code = 7.32 1810) POTASSIUM-STAT [id number] 09:17:00 Test Item Value Reference Range Interpretation Comments POTASSIUM (BEAKER) (test code = 6.2 meq/L 3.6-5.5 HH 379) HGB/HCT (H&H) - STAT [id number] 09:15:00 Test Item Value Reference Range Interpretation Comments HEMOGLOBIN (BEAKER) (test code = 11.3 g/dL 13.0-16.8 L 410) HEMATOCRIT (BEAKER) (test code = 33.0 % 40.0-50.0 L 411) BLOOD GAS, [id number] 09:14:00 Test Item Value Reference Range Interpretation Comments PH ARTERIAL (BEAKER) (test code = 7.37 7.35-7.45 383) PCO2 ARTERIAL (BEAKER) (test code 42 mmHg 35-45 = 384) PO2 ARTERIAL (BEAKER) (test code 314 mmHg 80-90 H = 385) O2 SATURATION ARTERIAL (BEAKER) 99.7 % 96.0-97.0 H (test code = 386) HCO3 ARTERIAL (BEAKER) (test code 24 mmol/L 21-29 = 388) BASE EXCESS ARTERIAL (BEAKER) -1.2 mmol/L -2.0-3.0 (test code = 387) PATIENT TEMPERATURE (BEAKER) 36.8 C (test code = 1818) FIO2 (BEAKER) (test code = 1819) 100.0 % GLUCOSE-STAT [id number] 09:14:00 Test Item Value Reference Range Interpretation Comments GLUCOSE RANDOM (BEAKER) (test code 202 mg/dL 70-110 H = 652) SODIUM NA-STAT [id number] 09:14:00 Test Item Value Reference Range Interpretation Comments SODIUM (BEAKER) (test code = 381) 129 meq/L 135-148 L OXYGEN SATURATION, [id number] 08:55:00 Test Item Value Reference Range Interpretation Comments O2 SATURATION (MEASURED) (BEAKER) 94.9 % (test code = 1455) BLOOD GAS, [id number] 08:55:00 Test Item Value Reference Range Interpretation Comments PH ARTERIAL (BEAKER) (test code = 7.37 7.35-7.45 383) PCO2 ARTERIAL (BEAKER) (test code 41 mmHg 35-45 = 384) PO2 ARTERIAL (BEAKER) (test code 250 mmHg 80-90 H = 385) O2 SATURATION ARTERIAL (BEAKER) 99.6 % 96.0-97.0 H (test code = 386) HCO3 ARTERIAL (BEAKER) (test code 25 mmol/L 21-29 = 388) BASE EXCESS ARTERIAL (BEAKER) -1.9 mmol/L -2.0-3.0 (test code = 387) PATIENT TEMPERATURE (BEAKER) 32.3 C (test code = 1818) FIO2 (BEAKER) (test code = 1819) 70.0 % GLUCOSE-STAT [id number] 08:55:00 Test Item Value Reference Range Interpretation Comments GLUCOSE RANDOM (BEAKER) (test code 192 mg/dL 70-110 H = 652) SODIUM NA-STAT [id number] 08:55:00 Test Item Value Reference Range Interpretation Comments SODIUM (BEAKER) (test code = 381) 129 meq/L 135-148 L HGB/HCT (H&H) - STAT [id number] 08:55:00 Test Item Value Reference Range Interpretation Comments HEMOGLOBIN (BEAKER) (test code = 10.4 g/dL 13.0-16.8 L 410) HEMATOCRIT (BEAKER) (test code = 31.0 % 40.0-50.0 L 411) POTASSIUM-STAT [id number] 08:53:00 Test Item Value Reference Range Interpretation Comments POTASSIUM (BEAKER) (test code = 4.9 meq/L 3.6-5.5 379) PLATELET AGGREGATION: FUNCTION [id number] 08:44:00 Test Item Value Reference Range Interpretation Comments WEAK ADP 74 % 60-91 RESULT(BEAKER) (test code = 2135) PLATELET FUNCTION 60-100% indicates SCREEN INTERP (BEAKER) normal platelet (test code = 2173) function [id number] Lina Davidson MD (BEAKER) (test code = (electronic signature) 7435) PLATELET COUNT AGG 283 K/CU MM 150-450 (BEAKER) (test code = 2656) for patients on clopidogrel in past two weeksBLOOD GAS, [id number] 08:03:00 Test Item Value Reference Range Interpretation Comments PH ARTERIAL (BEAKER) (test code = 7.40 7.35-7.45 383) PCO2 ARTERIAL (BEAKER) (test code 43 mmHg 35-45 = 384) PO2 ARTERIAL (BEAKER) (test code = 478 mmHg 80-90 H 385) O2 SATURATION ARTERIAL (BEAKER) 99.9 % 96.0-97.0 H (test code = 386) HCO3 ARTERIAL (BEAKER) (test code 27 mmol/L 21-29 = 388) BASE EXCESS ARTERIAL (BEAKER) 0.9 mmol/L -2.0-3.0 (test code = 387) PATIENT TEMPERATURE (BEAKER) (test 35.0 C code = 1818) FIO2 (BEAKER) (test code = 1819) 100.0 % GLUCOSE-STAT [id number] 08:03:00 Test Item Value Reference Range Interpretation Comments GLUCOSE RANDOM (BEAKER) (test code 221 mg/dL 70-110 H = 652) SODIUM NA-STAT [id number] 08:03:00 Test Item Value Reference Range Interpretation Comments SODIUM (BEAKER) (test code = 381) 132 meq/L 135-148 L CALCIUM, [id number] 08:03:00 Test Item Value Reference Range Interpretation Comments CALCIUM IONIZED (BEAKER) (test 1.05 mmol/L 1.12-1.27 L code = 698) PH, BLOOD (BEAKER) (test code = 7.38 1810) POTASSIUM-STAT [id number] 08:02:00 Test Item Value Reference Range Interpretation Comments POTASSIUM (BEAKER) (test code = 4.6 meq/L 3.6-5.5 379) HGB/HCT (H&H) - STAT [id number] 08:02:00 Test Item Value Reference Range Interpretation Comments HEMOGLOBIN (BEAKER) (test code = 14.9 g/dL 13.0-16.8 410) HEMATOCRIT (BEAKER) (test code = 44.0 % 40.0-50.0 411) RAD, CHEST, 1 VIEW, NON [id number] 06:45:00Reason for exam:->pre opShould this be performed [...] JR Klein Robert MDReport Verified Date/Time: 06/30/2017 06:45:20 Reading Location: [facility] C013Y CT Body Reading Room POCT-GLUCOSE METER 2017-06-30 06:37:00 Test Item Value Reference Range Interpretation Comments POC-GLUCOSE METER 216 mg/dL 70-110 H TESTED AT [facility] 6720 (BEAKER) (test code = [place] 1538) [address] COMPREHENSIVE METABOLIC [id number] 02:09:00 Test Item Value Reference Range Interpretation Comments TOTAL PROTEIN 7.5 gm/dL 6.0-8.3 (BEAKER) (test code = 770) ALBUMIN (BEAKER) 4.2 g/dL 3.5-5.0 (test code = 1145) ALKALINE PHOSPHATASE 64 U/L 40-150 (BEAKER) (test code = 346) BILIRUBIN TOTAL 0.5 mg/dL 0.2-1.2 (BEAKER) (test code = 377) SODIUM (BEAKER) (test 134 meq/L 136-145 L code = 381) POTASSIUM (BEAKER) 4.4 meq/L 3.5-5.1 (test code = 379) CHLORIDE (BEAKER) 97 meq/L 98-107 L (test code = 382) CO2 (BEAKER) (test 26 meq/L 22-29 code = 355) BLOOD UREA NITROGEN 15 mg/dL 7-21 (BEAKER) (test code = 354) CREATININE (BEAKER) 1.15 mg/dL 0.57-1.25 (test code = 358) GLUCOSE RANDOM 272 mg/dL 70-105 H (BEAKER) (test code = 652) CALCIUM (BEAKER) 9.6 mg/dL 8.4-10.2 (test code = 697) AST (SGOT) (BEAKER) 21 U/L 5-34 (test code = 353) ALT (SGPT) (BEAKER) 34 U/L 6-55 (test code = 347) EGFR (BEAKER) (test 66 mL/min/1.73 ESTIMA VALERI GFR IS code = 1092) sq m NOT ACCURATE CREATININE CLEARANCE IN PREDICTING GLOMERULAR FILTRATION RATE . ESTIMATED GFR I S NOT APPLICABLE FOR DIALYSIS PATIEN TS. PROTHROMBIN [id number] 01:59:00 Test Item Value Reference Range Interpretation Comments PROTIME (BEAKER) (test code = 11.9 seconds 11.7-14.7 759) INR (BEAKER) (test code = 370) 0.9 <=5.9 RECOMMENDED COUMADIN/WARFARIN INR THERAPY RANGESSTANDARD DOSE: 2.0 - 3.0 Includes: PROPHYLAXIS forvenous thrombosis, systemic embolization; TREATMENT for venous thrombosis and/or pulmonary embolus.HIGH RISK: Target INR is 2.5-3.5 for patients with mechanical heart valves.CBC W/PLT COUNT & AUTO DIFFERENTIAL 2017-06-30 01:55:00 Test Item Value Reference Range Interpretation Comments WHITE BLOOD CELL COUNT (BEAKER) 6.4 K/ L 3.5-10.5 (test code = 775) RED BLOOD CELL COUNT (BEAKER) 4.37 M/ L 4.63-6.08 L (test code = 761) HEMOGLOBIN (BEAKER) (test code = 14.3 GM/DL 13.7-17.5 410) HEMATOCRIT (BEAKER) (test code = 41.0 % 40.1-51.0 411) MEAN CORPUSCULAR VOLUME (BEAKER) 93.8 fL 79.0-92.2 H (test code = 753) MEAN CORPUSCULAR HEMOGLOBIN 32.7 pg 25.7-32.2 H (BEAKER) (test code = 751) MEAN CORPUSCULAR HEMOGLOBIN CONC 34.9 GM/DL 32.3-36.5 (BEAKER) (test code = 752) RED CELL DISTRIBUTION WIDTH 11.9 % 11.6-14.4 (BEAKER) (test code = 412) PLATELET COUNT (BEAKER) (test 277 K/CU MM 150-450 code = 756) MEAN PLATELET VOLUME (BEAKER) 8.9 fL 9.4-12.4 L (test code = 754) NUCLEATED RED BLOOD CELLS 0 /100 WBC 0-0 (BEAKER) (test code = 413) NEUTROPHILS RELATIVE PERCENT 50 % (BEAKER) (test code = 429) LYMPHOCYTES RELATIVE PERCENT 33 % (BEAKER) (test code = 430) MONOCYTES RELATIVE PERCENT 10 % (BEAKER) (test code = 431) EOSINOPHILS RELATIVE PERCENT 5 % (BEAKER) (test code = 432) BASOPHILS RELATIVE PERCENT 1 % (BEAKER) (test code = 437) NEUTROPHILS ABSOLUTE COUNT 3.24 K/ L 1.78-5.38 (BEAKER) (test code = 670) LYMPHOCYTES ABSOLUTE COUNT 2.09 K/ L 1.32-3.57 (BEAKER) (test code = 414) MONOCYTES ABSOLUTE COUNT (BEAKER) 0.67 K/ L 0.30-0.82 (test code = 415) EOSINOPHILS ABSOLUTE COUNT 0.32 K/ L 0.04-0.54 (BEAKER) (test code = 416) BASOPHILS ABSOLUTE COUNT (BEAKER) 0.07 K/ L 0.01-0.08 (test code = 417) IMMATURE GRANULOCYTES-RELATIVE 1 % 0-1 PERCENT (BEAKER) (test code = 2801) KPFYGJJCHUWG5453-74-80 08:25:0013.3[facility] VraabtmXYLDMSQZFGOO9184-91-05 08:25:0098[facility] XocvipcFWYZESGZGEEQ3819-58-25 08:25:61562Ponxmvjq [place] VPMNBVZDTUUF0712-84-38 08:25:008[facility] IhupmrjXVJYQMXZXOIX5502-76-42 08:25:00 137[facility] HeykuwsSZECQLJFDTHG1753-25-56 08:25:004.3[facility] [place] ARWMGBDOJIPK0408-07-84 08:25:000.88[facility] CyfaozdAOPLXYCVFDDR4422-52-67 08:25:0028[facility] LddwybpWIRWIGRPPPKD7482-67-84 08:25:009.6[facility] VRLQYZJAUCNH1813-17-50 08:25:58016Xyrhjaqc YwbeyphDUNBKAVRFV7469-56-39 08:25:00 6.5[facility] YibxvypOJZZUDQPXX2446-56-11 08:25:48822Qrkpqjdj HermannHEMATOLOGY 2016-11-07 08:25:006.6[facility] YujwhqdJHIULCMWWP4666-83-94 08:25:0013.4[facility] ZmqhoveOTMWUOCNQP9086-02-55 08:25:0034.0[facility] MoyvkmzDYMXYRLSWH2966-68-19 08:25:00 Test Item Value Reference Range Interpretation Comments MCH (test code = MCH) 31.0 pg 27.0-31.0 [facility] KdkbvknIEDEDBXLRV5424-48-87 08:25:003.42[facility]annHEMATOLOGY 2016-11-07 08:25:0091.2[facility] XwsfvdhWUZMGALJYB4135-98-19 08:25:0031.2[facility] JowwyacRLHTEJNLRT9868-67-01 08:25:0010.6[facility] FjcnyreIDNQBDMPRX4128-59-09 08:25:0047.2[facility] OzqdrcaBUENDCRYNV4752-77-37 08:25:000.5[facility] ZKCNWYSZXX0308-10-28 08:25:000.7[facility] BwblkjoGCNRLCRMJX6693-38-13 08:25:002.2 [facility] CsamgjlLSLCXVWFGR3596-76-62 08:25:003.1[facility] HermannHEMATOLOGY 2016-11-07 08:25:0033.2[facility] GpqymwlIZZTLBOJOR8794-48-27 08:25:0010.5[facility] UddyhpmFEZZYEOBEC4207-58-21 08:25:000.1[facility] IfkkjjaIMOWZXTKUC0922-31-51 08:25:001.2[facility] PucuxntBGRTUKJPTG4941-45-38 08:25:007.9[facility] HermannCHEM CYTAE7027-53-20 08:39:009.7[facility] HermannCHEM KVTZR3866-60-39 08:39:0016.5 [facility]annCHEM RNVPZ5658-95-99 08:39:44487Yspbzwgf HermannCHEM PANEL 2016-11-06 08:39:006[facility] HermannCHEM OHDRL6115-05-61 08:39:82812Niwjxkgu HermannCHEM DAZCS5071-82-90 08:39:0024[facility] HermannCHEM RAMPU8674-22-56 08:39:0098[facility] HermannCHEM BTCWH0745-44-05 08:39:004.5[facility] HermannCHEM PVIEA8188-04-92 08:39:03221Isnrmbdv HermannCHEM MGAFQ0215-23-62 08:39:000.77 [facility] YeigswwETPLNJGGQA2787-86-36 08:39:00 Test Item Value Reference Range Interpretation Comments MCH (test code = MCH) 31.8 pg 27.0-31.0 [facility] LxwerfrJNUMRMOAPH8745-52-93 08:39:0090.7[facility] HermannHEMATOLOGY 2016-11-06 08:39:16528Msxrnryf CiboodeDSFVGOFASA1100-38-25 08:39:0013.7[facility] QppdhrgNWBVQYDQCA6285-88-67 08:39:0035.1[facility] VjiezrkHZETIXXRAJ9721-34-30 08:39:006.9[facility] IfjnforPVJFWIXRSM8630-58-65 08:39:0010.4[facility] XHKSRXZULP4594-63-82 08:39:0029.7[facility] TjohpjmNGACYTNMMB4422-42-39 08:39:00 5.7[facility] ZjhniydDIYGOCARPL6471-02-20 08:39:003.27[facility] HermannHEMATOLOGY 2016-11-06 08:39:000.1[facility] WcxrzwoZZEOGWDPPG1088-28-51 08:39:000.6[facility] KlpjnxnGOBJCIGNGJ5695-15-87 08:39:0047.1[facility] XbpjvjmWASDNFXOHF0241-77-62 08:39:0032.7[facility] WwqknisMEJMVSOQTU5385-28-58 08:39:009.9[facility] OHCUUTLEDL3297-92-31 08:39:000.5[facility] BrzhhhdFXRWMHDHLP5236-32-32 08:39:001.9 [facility] IsxvqhmZOEWVBEZCX0788-67-57 08:39:009.1[facility] HermannHEMATOLOGY 2016-11-06 08:39:002.7[facility] LyhhuvuHYYPSENIPR0711-72-88 08:39:001.2[facility] HermannCHEM DQKGF0981-86-28 08:51:58437Gvtvuplc HermannCHEM JEFAN3665-46-17 08:51:008.9[facility] HermannCHEM NKQUQ4913-74-34 08:51:007[facility] HermannCHEM WBOMS7990-51-34 08:51:00900Llphnuks HermannCHEM RJPPE6926-04-82 08:51:004.1 [facility]annCHEM LHQVB3977-71-22 08:51:47365Rrnbvxek HermannCHEM PANEL 2016-11-05 08:51:000.83[facility] HermannCHEM IXPMT4344-50-44 08:51:0022[facility] HermannCHEM OLHSU6410-20-84 08:51:29136Ihzurtsh HermannCHEM IUPCX7272-15-35 08:51:0015.1[facility] BmgpazeQYVEBANEIU2880-67-25 08:51:006.6[facility] [place] LYLNELOBKI4607-19-20 08:51:0013.3[facility] GcbrxorENESKLRHTX4099-42-73 08:51:00 440[facility] CxubhnyOCKGGHEQZM9848-43-56 08:51:0033.9[facility] HermannHEMATOLOGY 2016-11-05 08:51:0093.2[facility] BhopqxzFTNHWROXFL4450-24-33 08:51:00 Test Item Value Reference Range Interpretation Comments MCH (test code = MCH) 31.6 pg 27.0-31.0 [facility] DcehymdIXMCULVURX8713-65-13 08:51:006.7[facility] HermannHEMATOLOGY 2016-11-05 08:51:003.21[facility] PagdcgwRWDNQVYVRO6952-58-73 08:51:0010.1[facility] OwkcuvhWPERUBNBTA2189-75-55 08:51:0029.9[facility] MjryjkyNHAZBCSQWK5129-63-51 08:51:003.5[facility] YsrwgyoPXLJOFCGDT5125-51-13 08:51:001.8[facility] [place] ZMOVVSUUJX6322-83-85 08:51:000.1[facility] LoboajuKKZFCZWFEA3304-35-88 08:51:000.7 [facility] NcsbeixGGLXUSPIAC2518-09-47 08:51:000.6[facility] HermannHEMATOLOGY 2016-11-05 08:51:0011.0[facility] ObwyajqPADDJNPWEU2377-93-30 08:51:008.3[facility] JkwrrsfXTTBTFAFJC0193-31-61 08:51:0052.6[facility] VtygdfyEAPQIUEFQM7321-32-86 08:51:0027.0[facility] TnhhdkvWSVPWKIMIN1764-47-05 08:51:001.1[facility] [place] BLOOD BANK SGUQMPF9590-55-78 22:29:00Negative (11/02/16 5:29 PM)[facility] CHEM EURMN1019-69-11 08:53:007.9[facility] HermannCHEM VTTUX3574-33-26 08:53:000.3 [facility]annCHEM KZSFJ6099-23-17 08:53:0099[facility] HermannCHEM PANEL 2016-11-02 08:53:009[facility] HermannCHEM ZKZAZ8302-66-00 08:53:0023[facility] HermannCHEM NTQJM2318-64-69 08:53:003.4[facility] HermannCHEM TEZMN4660-82-76 08:53:000.8[facility] HermannCHEM YSVSZ8370-62-24 08:53:004.5[facility] HermannCHEM KRRJC8932-98-34 08:53:0012[facility] HermannCHEM EJSCZ0119-35-04 21:56:001.1 [facility]vhyynfBQVADMKVHX9119-57-61 21:56:004.6[facility] 2016-[facility]01 21:56:00 Test Item Value Reference Range Interpretation Comments Split Point Rapid (test code = Split 0.5 min Point Rapid) [facility]zCCYLODCLFZ8403-[facility]-82 21:56:00 Test Item Value Reference Range Interpretation Comments ACT (TEG) Rapid (test code = ACT (TEG) 105 s 86-118 Rapid) [facility]viewVkkxfxcYGENQHLCMZ2349-10-98 21:56:00 Test Item Value Reference Range Interpretation Comments R-time Rapid (test code = R-time 0.6 min 0.4-0.7 Rapid) [facility]viewSyyfpyiEWYHETAOGR5180-87-18 21:56:00 Test Item Value Reference Range Interpretation Comments Max Amplitude Rapid (test code = Max 74 mm 52-71 Amplitude Rapid) [facility]viewHtrrriwTYRZQRFVSS8666-51-28 21:56:0014.5[facility] SystemsAT[facility] 2016-11-01 21:56:00 Test Item Value Reference Range Interpretation Comments Angle Rapid (test code = Angle 79 degrees 64-80 Rapid) [facility]viewRphwyqlTOGXEUUDCK9440-63-53 21:56:00 Test Item Value Reference Range Interpretation Comments K-time Rapid (test code = K-time 0.9 min 0.6-2.3 Rapid) [facility]annCHE[facility] ZFJIF4786-61-72 09:09:002.5[facility] HermannCHEM PANEL 2016-10-06 09:09:004.0[facility] HermannCHEM WJRFX2065-25-88 09:09:0058[facility]annCHEM EJMST5790-93-82 09:09:004.0[facility] HermannCHEM BNUDT2974-74-23 09:09:0092[facility] HermannCHEM UQQRV9695-12-76 09:09:0024[facility] HermannCHEM FSWUL2151-25-88 09:09:008.7[facility]annCHEM XJPQG7877-77-08 09:09:0014.0 [facility]annCHEM IJJUS8361-76-65 09:09:55729Msbldbww HermannCHEM PANEL 2016-10-06 09:09:0016[facility] HermannCHEM DJQNB9836-91-70 09:09:40922Zepyhlbv HermannCHEM NKKRG0797-14-74 09:09:001.37[facility] CbunvzmFGSQACRMHC9609-49-08 09:09:0013.0[facility] PcbovdfHGUTKVIRGF1269-54-81 09:09:76807Cksgvyod [place] PUNCSXHVPE8190-36-75 09:09:0035.2[facility] GrqpnbaPZQBXZMKBG1004-19-50 09:09:00 7.3[facility] BohzfrjEVAJXHAOBB2547-76-01 09:09:0037.3[facility] HermannHEMATOLOGY 2016-10-06 09:09:0095.2[facility] AhaquzuYTYKYXEZPQ3874-05-48 09:09:00 Test Item Value Reference Range Interpretation Comments MCH (test code = MCH) 33.5 pg 27.0-31.0 [facility] GfinnlfXMJXMTMTDT3220-63-13 09:09:0013.1[facility]annHEMATOLOGY 2016-10-06 09:09:007.0[facility] SsmzirwWCFFJWHXBF8270-74-69 09:09:003.92[facility] YytexwoRXEUNDSBWE5988-45-48 09:09:001.4[facility] DxttzvnPHTXWZYXQR6389-39-85 09:09:000.7[facility] PdwbmlcVHTLIMAKZI7303-43-93 09:09:000.2[facility] [place] SOREOAVZQV3219-63-16 09:09:0010.1[facility] QtcmupaAOISIJNVYJ9084-72-34 09:09:00 3.0[facility] EnwxvruJAJRQXJAVU2207-25-85 09:09:0065.8[facility]annHEMATOLOGY 2016-10-06 09:09:0020.5[facility] RsuryfkMONRMUMUQD5907-59-27 09:09:000.6[facility] PjloamnZHEISSYJKG9319-42-49 09:09:004.6[facility] HermannSPECIAL CHEMISTRY 2016-10-06 09:09:009.0[facility] HermannCHEM JWMAY1455-48-24 13:00:003.0[facility] HermannCHEM SRABN7900-85-87 13:00:001.7[facility] UfifzvuKYOYJVNLMWSZ3858-33-29 13:00:0014.4[facility] XvefchsGXMWOKDUWTCY1295-91-21 13:00:40419Wkoandgt [place] IEJHWWKWZIOD0715-47-56 13:00:004.4[facility] NkkymreHDIDPXJYEIFM0849-80-77 13:00:0025[facility] XlzorwcAPRUUMNVVUDZ6727-44-33 13:00:008.6[facility] FNYQBNIQHSWQ8775-27-68 13:00:008[facility] MjbrshgTHPNIRRWGFOJ9018-95-54 13:00:00 128[facility] JdbtgmzBEGPEMSHHBOD6106-49-79 13:00:000.81[facility] MNNNHOXQVUTG2283-41-57 13:00:0093[facility] HscdgbfQIRLWJUUMKEN2101-71-36 13:00:00 204[facility] UqunwnzZLMTOOYPQT7614-14-59 13:00:0074.0[facility] HermannHEMATOLOGY 2016-10-05 13:00:001.1[facility] LdgmpgkGXQBWAMAUS5831-41-42 13:00:001.0[facility] SrhhljjTUNIPIVYDI1133-49-38 13:00:0013.3[facility] EkrjtzdHIYLUUZAGH1887-39-90 13:00:0012.1[facility] PwahqelQWQTRARVIB9154-66-10 13:00:000.3[facility] SNJNERNGIG2380-44-84 13:00:000.3[facility] JtmtbhtXONAFKINBH6258-22-01 13:00:006.0 [facility] XuzadszNPNHNQDBVU1235-69-36 13:00:0093.0[facility]annHEMATOLOGY 2016-10-05 13:00:00 Test Item Value Reference Range Interpretation Comments MCH (test code = MCH) 32.9 pg 27.0-31.0 [facility] NqsvlvqVMGCZYRCDH9016-87-11 13:00:0014.0[facility] HermannHEMATOLOGY 2016-10-05 13:00:0039.5[facility] ClaahsqQUFLIARINZ1166-52-67 13:00:008.1[facility] WjzgrveURXTUHMROP9440-99-06 13:00:004.24[facility] YecczktIHFOMHOVFQ8808-17-12 13:00:0035.4[facility] SjopvcvVLBOUOSLUQ7467-85-87 13:00:007.3[facility] PCJTPXGHLY1174-10-01 13:00:0013.0[facility] XjoztiwYLJSELOZVN9977-68-83 13:00:00 278[facility]annDRUG HCLGZG4521-40-97 06:26:00Negative *NA*(10/05/16 1:26 AM) [facility] LRRZWG7343-83-42 06:26:00Negative *NA*(10/05/16 1:26 AM) [facility]DR[facility] DORWJK8831-13-51 06:26:00Negative *NA*(10/05/16 1:26 AM) [facility]DR[facility] NSOKEU9141-56-60 06:26:00Positive *ABN*(10/05/16 1:26 AM) [facility] YRDDJI1997-01-64 06:26:00Negative *NA*(10/05/16 1:26 AM) [facility]DR[facility] GRMGOF8563-21-41 06:26:00See Note (10/05/16 1:26 AM)[facility]annDR[facility] BECLDF1990-65-38 06:26:00Negative *NA*(10/05/16 1:26 AM)[facility]annDR[facility] BXGZCC9867-25-05 06:26:00Negative *NA*(10/05/16 1:26 AM)[facility]annUR[facility] AND VGYHU8781-93-28 06:21:53 Test Item Value Reference Range Interpretation Comments UA Spec Grav (test code = UA Spec 1.010 1 Grav) [facility] [id number] 06:21:53Negative *NA*(10/05/16 1:21 AM) [facility] [id number] 06:21:53Yellow *NA*(10/05/16 1:21 AM) [facility] [id number] 06:21:53Clear (10/05/16 1:21 AM) [facility] OGANR6434-18-57 06:21:53 Test Item Value Reference Range Interpretation Comments UA pH (test code = UA pH) 6.0 1 5.0-8.0 [facility] [id number] 06:21:53Negative (10/05/16 1:21 AM) [facility] [id number] 06:21:53Trace *ABN*(10/05/16 1:21 AM) [facility] [id number] 06:21:53Negative (10/05/16 1:21 AM) [facility] GPZPE5254-13-46 06:21:530.2[facility] EZTGK1769-61-68 06:21:53Negative (10/05/16 1:21 AM)[facility] [id number] 06:21:53None Seen (10/05/16 1:21 AM)[facility] 2016-10-05 02:00:0095[facility] PIRWA9882-86-82 02:00:008.5[facility] OHNDV6335-26-48 02:00:009[facility] QROGZ2770-20-72 02:00:000.92[facility] YCNRO2914-20-72 02:00:43118Sfvicurz HermannCHEM DATMA1837-48-13 02:00:005.1[facility] FRISG0732-40-88 02:00:0097 [facility] GYJNB9262-55-06 02:00:0022[facility] PANEL 2016-10-05 02:00:21322Yvvdndmc HermannCHEM YPQNJ7577-04-93 02:00:0017.1[facility] RTPYY1041-82-44 02:00:001.6[facility] PgxsybrLAHCIWBXIK7594-25-05 02:00:0011.5[facility] DxsgqeuLNHABNMQPU8918-57-00 02:00:00 Test Item Value Reference Range Interpretation Comments Max Amplitude Rapid (test code = Max 70 mm 52-71 Amplitude Rapid) [facility]IO3223-43-32 02:00:00 Test Item Value Reference Range Interpretation Comments Angle Rapid (test code = Angle 77 degrees 64-80 Rapid) [facility]CdqlieqJXQPPQQQHF9279-55-46 02:00:00 Test Item Value Reference Range Interpretation Comments Split Point Rapid (test code = Split 0.5 min Point Rapid) [facility]viewSwfzdniVMWJRWLBCF5226-79-43 02:00:00 Test Item Value Reference Range Interpretation Comments R-time Rapid (test code = R-time 0.6 min 0.4-0.7 Rapid) [facility]viewYqolefsKTWFFTPULC8465-46-41 02:00:00 Test Item Value Reference Range Interpretation Comments K-time Rapid (test code = K-time 1.1 min 0.6-2.3 Rapid) [facility]HgkistgUTNYURACHI1604-04-89 02:00:00 Test Item Value Reference Range Interpretation Comments ACT (TEG) Rapid (test code = ACT (TEG) 105 s 86-118 Rapid) [facility]viewQooekgmQQHRNVBLZX1430-20-41 02:00:003.3[facility]OLOGY 2016-10-05 02:00:05527Jaaopheh ObvkgdkSGTKECNION4713-28-77 02:00:0035.4[facility] MdezxxpYZJNMTUQCP1655-76-51 02:00:0013.1[facility] DffcbzmGNIWPYRTSW5497-06-62 02:00:007.2[facility] UtasqhkWIDFHYRWTM2225-37-55 02:00:004.31[facility] SZLXQRMKSL2608-83-60 02:00:0014.2[facility] ZgurgadHUZQTSBDFQ5092-32-89 02:00:00 40.1[facility] ZaoxoavWMLNHMDMUD1869-59-91 02:00:0013.0[facility]Y 2016-10-05 02:00:0093.0[facility] HpxoutyPENDUBGSYZ1741-39-94 02:00:00 Test Item Value Reference Range Interpretation Comments MCH (test code = MCH) 33.0 pg 27.0-31.0 [facility] NxbncieIGBKSVCPKI9002-65-92 02:00:0080.4[facility]Y 2016-10-05 02:00:0011.5[facility] WlnouktKNZTHFBTXM9988-65-00 02:00:000.3[facility] GzgviccUUCHLRFAWT2956-66-68 02:00:000.6[facility] IhdupjvLIAIZINNKU2040-42-92 02:00:0010.5[facility] KrefhmlAACNKGDUBT2230-13-79 02:00:007.2[facility] NNLYPVTEJH8428-96-74 02:00:001.5[facility] TvczwhmVGLJCYGNIV8782-79-10 02:00:000.9 [facility] UfxjsdxDMVNLMKIIF0080-90-62 02:00:000.1[facility] KUXVEEK7056-00-49 01:58:00Negative (10/04/16 8:58 PM)[facility]
[2020-01-23] MEDS ORDERED: MIDAZOLAM HCL 2 MG/2 ML INJ ONE (06:54)
[2020-01-23] MEDS ORDERED: HEPA 1000U/500MLS 1,000 UNIT/500 ML BAG IV ONE (06:55)
[2020-01-23] MEDS ORDERED: LIDOCAINE 1% MPF 30 ML VIAL ONE (06:55)
[2020-01-23] MEDS ORDERED: ATROPINE SULF 1 MG/10 ML SYR IV ONE (06:55)
[2020-01-23] MEDS ORDERED: FENTANYL CITR 100 MCG/2 ML ONE (06:55)
[2020-01-23] MEDS ORDERED: NA CHLORIDE 0.9% 500 ML ONE (07:11)
[2020-01-23] MEDS ORDERED: MIDAZOLAM HCL 5 MG/5 ML INJ ONE (07:47)
[2020-01-23 09:33] VITALS: TEMP 97.2
[2020-01-23 10:27] VITALS: BP 115/64; O2SAT 98
--- NOTE | 2020-01-24 02:28 | OP ---
Date of Procedure: 01/23/2020 Surgeon: Matias Petit MD Valve Steamer: Henry Johnson. Procedure: Selective bilateral carotid angiogram. Indication: Abnormal carotid Doppler. Description Of Procedure: Mr. Menard is a 54-year-old male, has severe diabetes, history of coronary artery disease status post CABG, had a right carotid bruit, right carotid Doppler showed significant carotid stenosis, scheduled for an outpatient angiogram today. He was prepped and draped in the rout ine sterile fashion in the [employer]. He was an outpatient. He was given Versed for sedation. A 6-F rench sheath was introduced in the right common femoral artery successfully. A JR4 catheter was used to select the right carotid artery and the left common carotid artery. The left common carotid lori ry was normal. The left ICA and ECA were normal. On the right side, his right common carotid was no rmal. His right external carotid artery was normal. He had about a 70% ostial right ICA. The patie nt tolerated the procedure well. There were no complications. Blood Loss: 5 mL. Anesthesia: Total conscious sedation was 30 minutes. Final Diagnoses: Severe cerebrovascular disease, significant carotid stenosis. I will send the film to Dr. Dominick Oconnor for review and possibly plan a right carotid endarterectomy in the near [facility]. The patient will be going home after 2 hours of bedrest. Angio-Seal was used to close the case. DELORES/CARLA Voice ID: [id number] Report ID: [id number]
== END 2020-01-23 10:15 | disposition home or self-care (01) ==
LOC: CCL 06:21
DX: I65.21 Occlusion and stenosis of right carotid artery (principal); I25.10 Atherosclerotic heart disease of native coronary artery without angina pectoris; I10 Essential (primary) hypertension; E11.9 Type 2 diabetes mellitus without complications; Z95.1 Presence of aortocoronary bypass graft
CPT/HCPCS: 93005; 85025; 80048; 36415; 85610; 82947 ×2; 85730; 71046; 36222; C1893; C1760; J2250 ×2; J3010; J7040; J1644